=== PATIENT | male | born 1955 | race Caucasian/White ===

== ENCOUNTER 2016-12-10 15:39 | Inpatient (IN) | payer OTHER ==
[2016-12-10] MEDS ORDERED: CATAPRES PO ONE (15:57)
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
[2016-12-10 17:12] LABS: UR AMPHETAMINES QUAL NONE DETECTED (NONE DETECT); UR BARBITUATES QUAL NONE DETECTED (NONE DETECT); UR BENZODIAZEPIN QUAL PRESUMPTIVE POSITIVE (NONE DETECT); UR COCAINE QUAL NONE DETECTED (NONE DETECT); UR MDMA QUAL NONE DETECTED (NONE DETECT); UR METHADONE QUAL PRESUMPTIVE POSITIVE (NONE DETECT); UR METHAMPHETAMINE QUAL NONE DETECTED (NONE DETECT); UR OPIATES QUAL NONE DETECTED (NONE DETECT)
[2016-12-10 17:13] LABS: UR CANNABINOIDS QUAL NONE DETECTED (NONE DETECT); UR OXYCODONE QUAL NONE DETECTED (NONE DETECT); UR PCP QUAL NONE DETECTED (NONE DETECT); UR TCA QUAL NONE DETECTED (NONE DETECT)
[2016-12-10 17:22] LABS: URINE CULTURE PL NEEDED? NO
[2016-12-10 17:22] LABS: MANUAL DIFF NEEDED? NO
[2016-12-10 17:24] LABS: BILIRUBIN URINE NEGATIVE (NEGATIVE); BLOOD URINE NEGATIVE (NEGATIVE); CLARITY CLEAR (CLEAR); COLOR YELLOW; GLUCOSE URINE NEGATIVE (NEGATIVE); LEUKOCYTES URINE NEGATIVE (NEGATIVE); NITRITE URINE NEGATIVE (NEGATIVE); PROTEIN URINE NEGATIVE (NEGATIVE); URINE EPITHELIAL CELLS <10 /HPF (<10); URINE RBC <10 /HPF (<10); URINE SOURCE CLEAN CATCH; URINE WBC <10 /HPF (<10); UROBILINOGEN URINE NORMAL
[2016-12-10 17:39] LABS: BASO% 0.5 % (0.0-0.8); EOS# 0.12 X1000 (0.0-0.7); EOS% 0.8 % (0.0-10.0); HEMATOCRIT 49.2 % (42.0-52.0); HEMOGLOBIN 16.7 g/dL (14.0-18.0); IMM GRAN# 0.04 X1000 (0.0-0.04); IMM GRAN% 0.3 % (0.0-0.5); LYMPH# 5.41 X1000 (1.2-3.4); LYMPH% 34.8 % (20.5-51.1); MCH 29.5 PG (27-31); MCHC 33.9 g/dL (33-37); MCV 86.8 FL (81-99); NEUT% 54.6 % (42.2-75.2); PLT 425 X1000 (130-400); RBC 5.67 XMIL (4.7-6.1)
[2016-12-10 17:57] LABS: AGAP 16; ALBUMIN 4.2 g/dL (3.5-5.0); ALKALINE PHOSPHATASE 109 U/L (32-122); BUN 8 mg/dL (8-22); CALCIUM 9.4 mg/dL (8.8-10.2); CHLORIDE 93 mmol/L (98-107); COSMO 267; GOT 16 U/L (10-34); GPT 15 U/L (10-44); SODIUM 133 mmol/L (136-145); TCO2 24 mmol/L (25-35); TOTAL PROTEIN 8.3 g/dL (6.3-8.3)
[2016-12-10 18:00] LABS: ACETAMINOPHEN < 1.2 ug/mL (10-30)
[2016-12-10] MEDS ORDERED: LR 1,000 ML IV PRN (19:12)
[2016-12-10] MEDS ORDERED: ROCEPHIN 1 GM/NS 50 ML IV ONE (19:16)
[2016-12-10] MEDS ORDERED: DESYREL PO ONE (21:42)
[2016-12-10] MEDS ORDERED: PHENERGAN PO ONE (21:43)
[2016-12-10] MEDS ORDERED: POTASSIUM CHLORIDE 10 MEQ in LR 1,000 ML IV ONE (21:46)
[2016-12-10] MEDS ORDERED: ZOFRAN PO PRN (21:46)
[2016-12-10] MEDS ORDERED: LACTULOSE PO PRN (22:45)
[2016-12-10] MEDS: VALIUM PO SCH (23:15)
[2016-12-11] MEDS: ZOFRAN ODT PO PRN (05:12)
--- NOTE | 2016-12-11 06:40 | Diag Imaging Result Document ---
PROCEDURE NAME: CHEST-2 VIEWS - 12/10/2016 FRONTAL AND LATERAL CHEST, TWO VIEWS: COMPARISON: Compared to 06/09/2016. FINDINGS: There are surgical clips near the right hilum. These are unchanged. The heart is not enlarged. The vessels are not distended. Mild increased interstitial markings in the mid and lower lungs bilaterally. These are more pronounced on the left. The markings on the left are mostly unchanged from prior exam and likely represent fibrosis. The markings on the right could be fibrosis as well or atelectasis. No pleural effusions. No consolidation. Mild compression fracture to the upper lumbar vertebrae. IMPRESSION: Likely fibrosis and atelectasis although there could be a small underlying infiltrate.
[2016-12-11] MEDS ORDERED: SUBUTEX SL SCH (09:00)
[2016-12-11] MEDS: CATAPRES PO SCH ×2 (09:25→20:58)
[2016-12-11] MEDS: VALIUM PO SCH ×2 (09:28→20:58)
[2016-12-11] MEDS: NEURONTIN PO PRN ×2 (14:45→21:00)
[2016-12-11] MEDS: TORADOL IV PRN ×3 (14:45→23:58)
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
[2016-12-11] MEDS: TYLENOL PO PRN (18:36)
[2016-12-11] MEDS: ROCEPHIN 1 GM/NS 50 ML IV SCH (18:36)
[2016-12-11] MEDS ORDERED: SUBOXONE 2 MG/0.5 MG SL SCH (21:00)
[2016-12-12] MEDS: TYLENOL PO PRN (03:29)
[2016-12-12] MEDS: ZOFRAN ODT PO PRN (03:31)
[2016-12-12] MEDS: TORADOL IV PRN ×3 (06:19→21:31)
[2016-12-12] MEDS: VALIUM PO SCH ×2 (08:36→20:24)
[2016-12-12] MEDS: CATAPRES PO SCH ×2 (08:36→20:24)
[2016-12-12] MEDS: ROBAXIN PO SCH ×3 (08:36→17:02)
[2016-12-12] MEDS: SUBUTEX SL SCH ×3 (08:36→17:02)
[2016-12-12] MEDS: NEURONTIN PO SCH ×3 (08:36→20:24)
--- NOTE | 2016-12-12 09:36 | PROGRESS NOTE ---
DATE: 12/12/2016 SUBJECTIVE: The patient notes that he is less suicidal, but still has thoughts of hurting himself. Denies any current chest pain or palpitations. States he still hurts all over. Does not think that the 4 mg Suboxone helped. Uncertain if it made it worse. Denies any fevers or chills. PHYSICAL EXAMINATION: Vital Signs: Temperature 98, pulse 65, respiratory rate 13-22, BP 96/62. Saturating 94% on room air. General: Patient is a well-developed male, who is currently in no respiratory distress. He is awake, alert. Neck: Supple. Cardiovascular: Regular rate. Chest: Relatively clear. Abdomen: Soft. Extremities: Moves all extremities. Neurologic: No changes. ASSESSMENT: 1. Suicidal ideations. Appears to be improving with better control of his opiate withdrawal. 2. Opiate withdrawal, The patient was on incredibly large dose of methadone, approximately 280 mg a day. He had gotten down to 135 mg a day and stopped abruptly a few days ago. 3. Leukocytosis. Will recheck. 4. Hypokalemia. Pending. 5. Polysubstance abuse. 6. Diabetes with noncompliance. PLAN: We will continue patient in ICU this morning due to suicidal ideations. We will continue Rocephin for his leukocytosis. Recheck his labs. Will change his Subutex to 2 mg three times a day. We will continue Toradol. Add Robaxin and follow.
[2016-12-12] MEDS: ROCEPHIN 1 GM/NS 50 ML IV SCH (18:10)
[2016-12-12] MEDS: DESYREL PO PRN (21:30)
[2016-12-13] MEDS: ZOFRAN ODT PO PRN (05:05)
[2016-12-13] MEDS: TORADOL IV PRN ×3 (05:06→22:37)
[2016-12-13 05:50] LABS: HEMATOCRIT 44.9 % (42.0-52.0); HEMOGLOBIN 15.1 g/dL (14.0-18.0); MCH 29.6 PG (27-31); MCHC 33.6 g/dL (33-37); MPV 11.2 FL (7.4-10.4); RBC 5.1 XMIL (4.7-6.1)
[2016-12-13 05:52] LABS: AGAP 10; ALBUMIN 3.4 g/dL (3.5-5.0); ALKALINE PHOSPHATASE 86 U/L (32-122); BUN 8 mg/dL (8-22); CALCIUM 9.1 mg/dL (8.8-10.2); CHLORIDE 94 mmol/L (98-107); COSMO 264; GOT 11 U/L (10-34); GPT 12 U/L (10-44); MAGNESIUM 2.2 mg/dL (1.5-2.7); POTASSIUM 3.1 mmol/L (3.5-5.1); SODIUM 132 mmol/L (136-145); TCO2 28 mmol/L (25-35); TOTAL PROTEIN 6.6 g/dL (6.3-8.3)
[2016-12-13] MEDS ORDERED: KLOR-CON PO ONE (06:46)
[2016-12-13] MEDS ORDERED: LACTULOSE PO PRN (06:52)
[2016-12-13] MEDS ORDERED: NEURONTIN PO PRN (06:53)
[2016-12-13] MEDS: CATAPRES PO SCH ×2 (08:16→20:02)
[2016-12-13] MEDS: SUBUTEX SL SCH ×2 (08:16→15:18)
[2016-12-13] MEDS: NEURONTIN PO SCH ×3 (08:16→20:02)
[2016-12-13] MEDS: ROBAXIN PO SCH ×3 (08:16→17:03)
[2016-12-13] MEDS: VALIUM PO SCH ×2 (08:17→20:02)
--- NOTE | 2016-12-13 09:08 | PROGRESS NOTE ---
DATE: 12/13/2016 SUBJECTIVE: The patient notes he is feeling a little bit better. States that the Subutex does help, but does not last but a couple of hours. Did not sleep well last night after the Subutex wore off. Patient denies any suicidal or homicidal ideations at the present time. OBJECTIVE: Vital Signs: On physical, temperature 97.0, pulse 61, respiratory rate 21, BP 118/68, satting 98% on room air. General: Patient is well developed, well nourished. Currently in no real respiratory distress. He is pleasant. Speech is regular. Memory is intact. HEENT: Normocephalic, atraumatic. BESS. Neck: Supple. CV: Regular rate. Chest: Relatively clear. Abdomen: Soft, nondistended. Extremities: Moves all extremities. Neurologic: No changes. LABS REVIEWED: WBCs 11. Sodium 132, potassium 3.1. Albumin 3.4. ASSESSMENT: 1. Mild protein calorie malnutrition. 2. Hyponatremia. 3. Hypokalemia. 4. Leukocytosis, improving. 5. Polysubstance abuse. 6. Suicidal ideations, resolved. 7. Diabetes with noncompliance. PLAN: Will continue to follow patient in the hospital. However, will move him out of the ICU as he is no longer suicidal and he is not requiring ICU care. Will increase his Subutex to 2 mg a.m. in afternoon and 4 mg at night. We will continue to slowly increase. Discussed with patient that he was on an incredibly large dose of methadone, and this is the cause of his current withdrawal symptoms. Will continue Rocephin as his white count seems to be improving. Will continue to follow. Hopefully home in 1-2 days.
[2016-12-13] MEDS: ROCEPHIN 1 GM/NS 50 ML IV SCH (18:24)
[2016-12-13] MEDS ORDERED: SUBUTEX SL SCH (21:00)
[2016-12-13] MEDS ORDERED: MYCELEX TROCHE PO SCH (21:00)
[2016-12-13] MEDS: DESYREL PO PRN (22:37)
[2016-12-14] MEDS: TORADOL IV PRN ×2 (06:54→20:22)
[2016-12-14] MEDS: ZOFRAN ODT PO PRN (06:54)
[2016-12-14] MEDS: NEURONTIN PO SCH ×3 (09:08→20:23)
[2016-12-14] MEDS: ROBAXIN PO SCH ×3 (09:08→17:25)
[2016-12-14] MEDS: CATAPRES PO SCH ×2 (09:08→20:23)
[2016-12-14] MEDS: VALIUM PO SCH ×2 (09:08→20:22)
[2016-12-14] MEDS: SUBUTEX SL SCH ×2 (09:09→15:28)
[2016-12-14] MEDS ORDERED: SUBUTEX SL ONE (09:30)
--- NOTE | 2016-12-14 11:07 | PROGRESS NOTE ---
DATE: 12/14/2016 SUBJECTIVE: Patient notes that he is feeling a little bit better. He is still having multiple issues with muscle aches and pains. Denies any chest pain, palpitations. Denies any fevers or chills. OBJECTIVE: Vital Signs: Reviewed. Temperature 98 degrees, pulse 69, respiratory 16, BP 105/59. General: Patient well developed, well nourished. Currently in no respiratory distress. He is awake, alert. He appears to be feeling better. HEENT: Normocephalic, atraumatic. Neck: Supple. CV: Regular rate. Chest: Relatively clear. LABS: Reviewed. ASSESSMENT: 1. Hyponatremia stable. 2. Hypokalemia stable. 3. Polysubstance abuse and opiate withdrawal. We will continue stabilization with Subutex. 4. Diabetes with noncompliance. PLAN: Will slowly continue to increase patient's Subutex as he has continued to have withdrawal symptoms. Further orders as needed.
[2016-12-14] MEDS: ROCEPHIN 1 GM/NS 50 ML IV SCH (18:17)
[2016-12-14] MEDS ORDERED: SUBUTEX SL SCH (21:00)
[2016-12-15] MEDS: NEURONTIN PO SCH ×3 (08:41→20:26)
[2016-12-15] MEDS: CATAPRES PO SCH ×2 (08:42→20:26)
[2016-12-15] MEDS: ROBAXIN PO SCH ×3 (08:42→16:43)
[2016-12-15] MEDS: VALIUM PO SCH ×2 (08:42→20:24)
[2016-12-15] MEDS ORDERED: SUBUTEX SL SCH (09:00)
[2016-12-15] MEDS ORDERED: SUBUTEX SL ONE (10:45)
--- NOTE | 2016-12-15 12:05 | PROGRESS NOTE ---
DATE: 12/15/2016 SUBJECTIVE: Patient notes that he is feeling a lot better after increasing Subutex last night to 8 mg. states that he feels as though he needs to stay on Subutex at home. Denies any current chest pain, palpitations. Denies any current suicidal ideation. States that he is still hurting but improved. Notes that the 8 mg lasted much longer. Overnight. PHYSICAL EXAMINATION: Vital Signs: Temperature 97.9 degree, pulse 47, respiratory 20, BP 111/57, saturation 98% on room air. General: The patient is well developed, well nourished. Currently in no real respiratory distress. He is awake, alert. Neck: Supple. CV: Regular rate. Chest: Relatively clear. Abdomen: Soft, nondistended. Extremities: Moves all extremities. Neurologic: No changes. Skin: Warm and dry. No rashes. ASSESSMENT: 1. Nausea, vomiting. 2. Abdominal pain. 3. Hyponatremia, resolved. 4. Hypokalemia, resolved. 5. Suicidal ideation secondary to opiate withdrawal symptoms. 6. Diabetes with poor compliance. 7. Chronic opiate abuse and chronic pain. PLAN: Patient continues to slowly improve. His withdrawal symptoms are continuing to improve. He is being stabilized with Subutex. We will increase to 8 mg Subutex b.i.d. and 2 mg in the afternoon. Discussed with him that he will need to stay on Subutex for about 2 months and then we will certainly need to wean back to 8 mg b.i.d. of Suboxone and continue to follow.
[2016-12-15] MEDS: SUBUTEX SL SCH ×2 (15:09→20:36)
[2016-12-15] MEDS: ROCEPHIN 1 GM/NS 50 ML IV SCH (18:11)
[2016-12-15] MEDS: DESYREL PO PRN (20:25)
[2016-12-16] MEDS: ROBAXIN PO SCH (08:38)
[2016-12-16] MEDS: CATAPRES PO SCH (08:39)
[2016-12-16] MEDS: NEURONTIN PO SCH (08:39)
[2016-12-16] MEDS: VALIUM PO SCH (08:39)
[2016-12-16] MEDS: SUBUTEX SL SCH (08:41)
[2016-12-16 12:25] VITALS: BP 120/68
--- NOTE | 2016-12-17 05:10 | DISCHARGE SUMMARY ---
ADMISSION DATE: 12/11/2016 DISCHARGE DATE: 12/16/2016 DISCHARGE DIAGNOSES: 1. Chronic opiate abuse and stabilization with Subutex. 2. Nausea and vomiting, resolved. 3. Abdominal pain, resolved. 4. Hyponatremia, resolved. 5. Hypokalemia, resolved. 6. Suicidal ideation secondary to opiate withdrawal symptoms, resolved. 7. Diabetes with poor control, stable. 8. Chronic pain. 9. Myalgias. 10. Leukocytosis, resolved. CONSULTATIONS: None. PROCEDURES: None. BRIEF HOSPITAL COURSE: Patient is a 61-year-old male was admitted as noted on the history of present illness. Initially placed in the ICU secondary to suicidal ideations. It was felt as though this was secondary to opiate withdrawal. He had been on extremely large doses of methadone, up to 280 mg a day. The wean down to about 150 mg a day and then stopped completely approximately a week ago. His withdrawal symptoms continued to worsen, continue to be too severe and therefore presented to the emergency department. The patient was very slowly placed on Subutex initially at 2 mg twice a day, with Toradol, Robaxin, and other symptomatic medications. This was slowly increased to 8 in the morning, 2 in the afternoon, and 8 at night. The patient was finally able to get some relief. Therefore, he will be discharged home. DISPOSITION: The patient will be discharged home. He will continue Subutex at home. He will need to follow up outpatient with treatment facility of choice. Discussed with the patient that he needs lifestyle changes, as well as life counseling and drug counseling. We will continue to follow.
== END 2016-12-16 13:18 | disposition home or self-care (01) | DRG 897 ==
LOC: P.ED 15:39 → P.ICU 22:09 → OBSVTOIN 12-11 09:16 → P.MEDSURG 12-13 11:37
PROVIDERS: ATTEND Family Medicine
DX: F11.23 Opioid dependence with withdrawal (principal); R45.851 Suicidal ideations; E87.1 Hypo-osmolality and hyponatremia; E44.1 Mild protein-calorie malnutrition; E11.65 Type 2 diabetes mellitus with hyperglycemia; R19.7 Diarrhea, unspecified; E87.6 Hypokalemia; Z91.19 Patient's noncompliance with other medical treatment and regimen; F13.10 Sedative, hypnotic or anxiolytic abuse, uncomplicated; G89.29 Other chronic pain; Z79.899 Other long term (current) drug therapy
CPT/HCPCS: 71020; 80053; 80305; 81001; 83735; 84436; 84443; 85025; 85027; 96365; 96366; G0480; J0696; J1885; J3480; J7120; 80320; 80324; 80329

== ENCOUNTER 2017-04-18 07:55 | Observation (INO) ==
[2017-04-18 08:40] LABS: MANUAL DIFF NEEDED? NO
[2017-04-18 08:41] LABS: BE 3.7 mmoll (-3.0-3.0); BLOOD TYPE ARTERIAL; DRAW SITE R RADIAL; METHB 1.1 % (0.0-1.5); O2(CT) 22.6 mL/dL (15.0-23.0); PCO2(98.6) 39 mmHg (35-45); PO2(98.6) 74 mmHg (60-100); SAMPLE BLOOD; SAO2 97.6 % (95.0-100.0); THB 17.6 g/dL (11.5-17.4); pH(98.6) 7.46 (7.35-7.45)
[2017-04-18 08:43] LABS: BASO% 0.6 % (0.0-0.8); EOS# 0.09 X1000 (0.0-0.7); EOS% 0.8 % (0.0-10.0); HEMATOCRIT 48.5 % (42.0-52.0); HEMOGLOBIN 17.5 g/dL (14.0-18.0); IMM GRAN# 0.03 X1000 (0.0-0.04); IMM GRAN% 0.3 % (0.0-0.5); LYMPH# 2.87 X1000 (1.2-3.4); LYMPH% 24.9 % (20.5-51.1); MCH 30.4 PG (27-31); MCHC 36.1 g/dL (33-37); MCV 84.3 FL (81-99); MONO# 1.86 X1000 (0.11-0.59); MONO% 16.1 % (1.7-9.3); MPV 11.7 FL (7.4-10.4); NEUT% 57.3 % (42.2-75.2); PLT 323 X1000 (130-400); RBC 5.75 XMIL (4.7-6.1)
[2017-04-18 08:47] LABS: MODALITY ROOM AIR
[2017-04-18 08:49] LABS: ALLEN TEST YES
[2017-04-18 09:01] LABS: INR 1.02 (0.86-1.15); PROTIME 13.7 Seconds (12.1-15.5)
--- NOTE | 2017-04-18 09:06 | Diag Imaging Result Doc PS360 ---
EXAM: CHEST-2 VIEWS HISTORY: SOB TECHNIQUE: PA and Lateral chest x-ray COMPARISON: 04/16/2017 FINDINGS: Lung volumes are reduced but stable. Surgical clips project posterior right chest. Scarring within the left midlung zone when blunted left costophrenic angle remains stable. No acute infiltrates or effusions are identified. No pneumothorax is noted. There is stable marked kyphosis with compression deformities at the thoracolumbar junction. IMPRESSION: Stable fibrosis and reduced lung volumes. No acute abnormalities are appreciated. Electronically signed by Viola Camarena 04/18/2017 9:03 AM
[2017-04-18 09:19] LABS: AGAP 15; ALBUMIN 4.3 g/dL (3.5-5.0); ALKALINE PHOSPHATASE 100 U/L (32-122); BUN 16 mg/dL (8-22); CALCIUM 9.3 mg/dL (8.8-10.2); CHLORIDE 80 mmol/L (98-107); CK PROFILE 144 U/L (24-204); COSMO 244; GOT 18 U/L (10-34); GPT 13 U/L (10-44); MAGNESIUM 2.2 mg/dL (1.5-2.7); POTASSIUM 3.7 mmol/L (3.5-5.1); TCO2 25 mmol/L (25-35); TOTAL PROTEIN 8.2 g/dL (6.3-8.3)
[2017-04-18 09:20] LABS: SODIUM 120 mmol/L (136-145)
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
[2017-04-18] MEDS ORDERED: ZOFRAN IV ONE (10:48)
[2017-04-18] MEDS ORDERED: ZOFRAN ONE (10:48)
[2017-04-18 10:49] LABS: URINE CULTURE PL NEEDED? NO
[2017-04-18 10:56] LABS: BILIRUBIN URINE NEGATIVE (NEGATIVE); BLOOD URINE NEGATIVE (NEGATIVE); CLARITY CLEAR (CLEAR); COLOR YELLOW; GLUCOSE URINE NEGATIVE (NEGATIVE); LEUKOCYTES URINE NEGATIVE (NEGATIVE); NITRITE URINE NEGATIVE (NEGATIVE); PROTEIN URINE NEGATIVE (NEGATIVE); SP GRAVITY URINE 1.015; UROBILINOGEN URINE NORMAL
[2017-04-18 10:58] LABS: URINE EPITHELIAL CELLS <10 /HPF (<10); URINE SOURCE CLEAN CATCH; URINE WBC <10 /HPF (<10)
[2017-04-18] MEDS ORDERED: TYLENOL PO PRN (13:00)
[2017-04-18] MEDS ORDERED: ZOFRAN IV PRN (13:00)
[2017-04-18] MEDS ORDERED: AMBIEN PO PRN (14:38)
[2017-04-18] MEDS: NS 1,000 ML IV SCH (15:48)
[2017-04-18 16:16] LABS: UR AMPHETAMINES QUAL NONE DETECTED (NONE DETECT); UR BARBITUATES QUAL NONE DETECTED (NONE DETECT); UR BENZODIAZEPIN QUAL PRESUMPTIVE POSITIVE (NONE DETECT); UR CANNABINOIDS QUAL NONE DETECTED (NONE DETECT); UR COCAINE QUAL NONE DETECTED (NONE DETECT); UR MDMA QUAL NONE DETECTED (NONE DETECT); UR METHADONE QUAL NONE DETECTED (NONE DETECT); UR METHAMPHETAMINE QUAL NONE DETECTED (NONE DETECT); UR OPIATES QUAL NONE DETECTED (NONE DETECT); UR OXYCODONE QUAL NONE DETECTED (NONE DETECT); UR PCP QUAL NONE DETECTED (NONE DETECT); UR TCA QUAL PRESUMPTIVE POSITIVE (NONE DETECT)
[2017-04-18 16:25] LABS: AGAP 12; BUN 17 mg/dL (8-22); CALCIUM 9.4 mg/dL (8.8-10.2); CHLORIDE 81 mmol/L (98-107); COSMO 249; POTASSIUM 4.1 mmol/L (3.5-5.1); SODIUM 121 mmol/L (136-145); TCO2 28 mmol/L (25-35)
--- NOTE | 2017-04-18 16:52 | EKG Report ---
Test Performed on : 04/18/2017 08:15:52 AM Test Reason : SOB Blood Pressure : / mmHG Vent. Rate : 093 BPM Atrial Rate : 093 BPM P-R Int : 144 ms QRS Dur : 082 ms QT Int : 354 ms P-R-T Axes : 057 042 021 degrees QTc Int : 440 ms Normal sinus rhythm. Normal ECG When compared with ECG of 16-APR-2017 10:59, No significant change was found Unconfirmed Result
[2017-04-18] MEDS: HUMALOG DOSE (PARKWAY) SUBQ SCH ×2 (17:16→20:19)
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
[2017-04-18] MEDS: SUBOXONE 8 MG/2 MG SL SCH (20:19)
[2017-04-18] MEDS: NORFLEX PO SCH (20:19)
[2017-04-18] MEDS: VALIUM PO SCH (20:20)
[2017-04-18 22:10] LABS: AGAP 9; BUN 19 mg/dL (8-22); CALCIUM 8.6 mg/dL (8.8-10.2); CHLORIDE 83 mmol/L (98-107); COSMO 247; POTASSIUM 3.9 mmol/L (3.5-5.1); SODIUM 122 mmol/L (136-145); TCO2 30 mmol/L (25-35)
[2017-04-19] MEDS: NS 1,000 ML IV SCH (00:08)
[2017-04-19] MEDS: HUMALOG DOSE (PARKWAY) SUBQ SCH (06:17)
[2017-04-19 06:22] LABS: HEMATOCRIT 43.6 % (42.0-52.0); MCH 29.5 PG (27-31); MCHC 34.4 g/dL (33-37); MCV 85.7 FL (81-99); MPV 11.5 FL (7.4-10.4); RBC 5.09 XMIL (4.7-6.1)
[2017-04-19] MEDS ORDERED: NEXIUM PO SCH (07:00)
[2017-04-19] MEDS: NORFLEX PO SCH (09:05)
[2017-04-19] MEDS: VALIUM PO SCH (09:05)
[2017-04-19] MEDS: SUBOXONE 8 MG/2 MG SL SCH (09:06)
[2017-04-19 10:53] LABS: AGAP 12; ALBUMIN 4.3 g/dL (3.5-5.0); ALKALINE PHOSPHATASE 89 U/L (32-122); BUN 20 mg/dL (8-22); CALCIUM 9.7 mg/dL (8.8-10.2); CHLORIDE 90 mmol/L (98-107); COSMO 261; GOT 16 U/L (10-34); GPT 10 U/L (10-44); POTASSIUM 4.5 mmol/L (3.5-5.1); SODIUM 128 mmol/L (136-145); TCO2 27 mmol/L (25-35)
[2017-04-19 12:07] VITALS: BP 121/62
--- NOTE | 2017-04-20 05:00 | DISCHARGE SUMMARY ---
ADMISSION DATE: 04/18/2017 DISCHARGE DATE: 04/19/2017 DIAGNOSES: 1. Hyponatremia. 2. Back pain, chronic. 3. Diabetes mellitus. 4. Hypertension. DIAGNOSTICS: On 04/18/2017, chest x-ray revealed stable fibrosis and reduced lung volumes. No acute abnormalities appreciated. HOSPITAL COURSE: Mr. Polo presented to the emergency room complaining of back pain. He presented twice in 24 hours. On the 2nd visit, he was found to have a sodium of 120 with a potassium of 3.7. He was given IV fluids. Labs were trended and sodium did rise to 128 today. He would he denied any weakness, any dizziness, chest pain, palpitations. He wished to go home. PHYSICAL EXAMINATION: Cardiovascular: Regular rate and rhythm. S1 and S2 are appreciated. Pulmonary: Breath sounds are clear with no increased work of breathing noted. Gastrointestinal: Abdomen is soft, nontender, nondistended with bowel sounds in all 4 quadrants. Neurologic: He is alert and oriented x3. Cranial nerves 2-12 grossly intact. DISCHARGE MEDICATIONS: 1. Ambien 1 tablet at bedtime p.r.n. 2. Norflex 100 b.i.d. 3. Lisinopril 20 mg daily. 4. Nexium 40 daily. 5. Valium 10 b.i.d. 6. Suboxone 8/2 b.i.d. DISCHARGE VITAL SIGNS: Blood pressure is 121/62, with a heart rate of 65, respirations are 18, temperature is 98.5 degrees, with room air saturations of 96%. DISCHARGE ACTIVITY: As tolerated. DISCHARGE DIET: Diabetic. FOLLOWUP: He needs to follow with Dr. Boogie, his primary care physician, 1 day next week to have a BMP redrawn and check his sodium levels. He is being discharged home in stable condition with family members. TIME SPENT: This is a greater than 30 minute discharge. Dictated by MARILYN Ha for Maynor Jasso MD cc: MARILYN Ha MD
== END 2017-04-19 13:35 | disposition home or self-care (01) ==
LOC: P.ED 07:55 → P.MEDSURG 07:55
PROVIDERS: ATTEND Family Medicine

== ENCOUNTER 2017-05-01 13:01 | Inpatient (IN) ==
[2017-05-01] MEDS ORDERED: NS 500 ML IV ONE (13:28)
[2017-05-01] MEDS ORDERED: ZOSYN 3.375 GM/NS 3.375 GM/50 ML IVPB IV ONE (13:29)
[2017-05-01 13:49] LABS: MANUAL DIFF NEEDED? NO
[2017-05-01 13:52] LABS: BASO% 0.6 % (0.0-0.8); EOS# 0.22 X1000 (0.0-0.7); EOS% 2.2 % (0.0-10.0); HEMATOCRIT 44.6 % (42.0-52.0); IMM GRAN# 0.02 X1000 (0.0-0.04); IMM GRAN% 0.2 % (0.0-0.5); LYMPH# 3.71 X1000 (1.2-3.4); MCH 30.4 PG (27-31); MCHC 33.6 g/dL (33-37); MCV 90.3 FL (81-99); MONO# 0.81 X1000 (0.11-0.59); MONO% 8.1 % (1.7-9.3); MPV 10.5 FL (7.4-10.4); NEUT% 51.9 % (42.2-75.2); PLT 416 X1000 (130-400); RBC 4.94 XMIL (4.7-6.1)
[2017-05-01 14:35] LABS: AGAP 8; ALBUMIN 3.5 g/dL (3.5-5.0); ALKALINE PHOSPHATASE 92 U/L (32-122); BUN 6 mg/dL (8-22); CALCIUM 8.7 mg/dL (8.8-10.2); CHLORIDE 101 mmol/L (98-107); COSMO 272; GOT 13 U/L (10-34); GPT 14 U/L (10-44); POTASSIUM 4.1 mmol/L (3.5-5.1); SODIUM 137 mmol/L (136-145); TCO2 28 mmol/L (25-35); TOTAL PROTEIN 6.9 g/dL (6.3-8.3)
[2017-05-01] MEDS ORDERED: TYLENOL PO PRN (15:18)
[2017-05-01] MEDS ORDERED: ZOFRAN IV PRN (15:18)
[2017-05-01] MEDS ORDERED: DILAUDID IM PRN (15:18)
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
[2017-05-01] MEDS ORDERED: AMBIEN PO PRN (17:36)
[2017-05-01] MEDS ORDERED: VALIUM PO SCH (21:00)
[2017-05-01] MEDS: VALIUM PO SCH (21:11)
[2017-05-01] MEDS: NORFLEX PO SCH (21:11)
[2017-05-01] MEDS: SUBOXONE 8 MG/2 MG SL SCH (21:11)
[2017-05-01] MEDS: NEURONTIN PO SCH (21:11)
[2017-05-01] MEDS: ZOSYN 3.375 GM/NS 3.375 GM/50 ML IVPB IV SCH (21:12)
[2017-05-02] MEDS: AMBIEN PO PRN ×2 (01:08→23:18)
[2017-05-02] MEDS: ZOSYN 3.375 GM/NS 3.375 GM/50 ML IVPB IV SCH ×4 (03:48→20:15)
[2017-05-02] MEDS: NEURONTIN PO SCH ×3 (05:53→21:02)
[2017-05-02] MEDS: NORFLEX PO SCH ×2 (09:25→20:15)
[2017-05-02] MEDS: SUBOXONE 8 MG/2 MG SL SCH ×2 (09:25→20:15)
[2017-05-02] MEDS: VALIUM PO SCH ×2 (09:25→20:15)
[2017-05-02] MEDS: PRINIVIL PO SCH (09:25)
[2017-05-02] MEDS: NICODERM PATCH TD SCH (12:34)
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
[2017-05-03] MEDS: ZOSYN 3.375 GM/NS 3.375 GM/50 ML IVPB IV SCH ×4 (02:17→21:07)
[2017-05-03] MEDS: NEURONTIN PO SCH ×3 (05:07→21:08)
[2017-05-03] MEDS: NICODERM PATCH TD SCH (09:14)
[2017-05-03] MEDS: NORFLEX PO SCH ×2 (09:14→21:07)
[2017-05-03] MEDS: VALIUM PO SCH ×2 (09:14→21:08)
[2017-05-03] MEDS: LOVENOX SUBQ SCH (09:14)
[2017-05-03] MEDS: PRINIVIL PO SCH (09:14)
[2017-05-03] MEDS: SUBOXONE 8 MG/2 MG SL SCH ×2 (09:14→21:06)
--- NOTE | 2017-05-03 14:47 | PROGRESS NOTE ---
DATE: 05/03/2017 SUBJECTIVE: The patient states that he is having less pain in his right lower extremity. He denies any fevers or chills, chest pain, nausea, or vomiting. OBJECTIVE: Vital Signs: Blood pressure is 95/48 with a heart rate of 66, respirations are 18, temperature is 98.4 degrees with room air saturations 96%-99%. Cardiovascular: Regular rate and rhythm S1, S2 appreciated. Pulmonary: Breath sounds are clear. No increased work of breathing noted. Gastrointestinal: Abdomen is soft, nontender, nondistended. Bowel sounds in all 4 quadrants. Back: No CVAT. No spine tenderness. Extremities: No clubbing, cyanosis, or edema to upper extremities. Right lower extremity: He has some nonpitting edema with redness and warmth although it is less than yesterday. Of note, he has left AKA LABORATORY DATA: He has no labs today. PROBLEM LIST: 1. Cellulitis, right lower extremity. 2. Diabetes mellitus. 3. Hypertension. 4. History of polysubstance abuse. 5. Deep venous thrombosis prophylaxis, Lovenox. 6. Gastrointestinal prophylaxis, Prilosec. PLAN: We will continue with current regimen. Continue his IV antibiotics transitioning over to oral antibiotics hopefully in the next day or 2. Further treatments pending hospital course. Dictated by MARILYN Ha for Maynor Jasso MD cc: MARILYN Ha MD
[2017-05-03] MEDS: AMBIEN PO PRN (21:08)
[2017-05-04] MEDS: ZOSYN 3.375 GM/NS 3.375 GM/50 ML IVPB IV SCH ×5 (01:52→20:32)
[2017-05-04] MEDS: NEURONTIN PO SCH ×3 (05:14→21:06)
[2017-05-04] MEDS: PRINIVIL PO SCH (09:00)
[2017-05-04] MEDS: VALIUM PO SCH ×2 (09:00→20:32)
[2017-05-04] MEDS: NORFLEX PO SCH ×2 (09:00→20:32)
[2017-05-04] MEDS: NICODERM PATCH TD SCH (09:01)
[2017-05-04] MEDS: SUBOXONE 8 MG/2 MG SL SCH ×2 (09:01→20:32)
[2017-05-04] MEDS: LOVENOX SUBQ SCH (09:02)
--- NOTE | 2017-05-04 13:33 | PROGRESS NOTE ---
DATE: 05/04/2017 SUBJECTIVE: Patient without any new complaints. States that his right lower extremity is starting to feel better. Starting to hurt less. Having less redness, less erythema, and less swelling. OBJECTIVE: Vital signs: Temperature 98, pulse 84, respiratory rate 18, BP 100/59, saturating 100% on room air. General: Patient is well developed, well nourished. Currently in no respiratory distress. He is sleeping quietly in the bed, easily awakened. He awakes to be alert and oriented. HEENT: Normocephalic, atraumatic. Neck: Supple. CV: Regular rate. Chest: Clear. Abdomen: Soft. Extremities: Moves all extremities. Skin: Noted to have less erythema and less edema of the right lower extremity, both of which have improved. He is noted to have a left [id number] amputation. ASSESSMENT: 1. Chronic history of substance abuse, currently on Suboxone. 2. Diabetes. 3. Hypertension. PLAN: We will continue patient on his current medications. Recheck his labs in the a.m. We will continue Zosyn for today as he is definitely improving. Hopefully home in the next 1-2 days. cc: Maynor Jasso MD
[2017-05-05] MEDS: AMBIEN PO PRN ×2 (00:22→21:10)
[2017-05-05] MEDS: ZOSYN 3.375 GM/NS 3.375 GM/50 ML IVPB IV SCH ×4 (02:07→21:11)
[2017-05-05] MEDS: NEURONTIN PO SCH ×3 (05:05→21:10)
[2017-05-05 05:43] LABS: HEMATOCRIT 41.4 % (42.0-52.0); HEMOGLOBIN 13.4 g/dL (14.0-18.0); MCH 30.2 PG (27-31); MCHC 32.4 g/dL (33-37); MCV 93.5 FL (81-99); MPV 10.2 FL (7.4-10.4); RBC 4.43 XMIL (4.7-6.1)
[2017-05-05 06:03] LABS: HEMOGLOBIN A1C 6.2 % (4.8-6.0)
[2017-05-05 06:09] LABS: AGAP 6; ALBUMIN 3.1 g/dL (3.5-5.0); ALKALINE PHOSPHATASE 69 U/L (32-122); BUN 6 mg/dL (8-22); CALCIUM 8.8 mg/dL (8.8-10.2); CHLORIDE 99 mmol/L (98-107); COSMO 275; GOT 9 U/L (10-34); GPT 11 U/L (10-44); POTASSIUM 4.1 mmol/L (3.5-5.1); SODIUM 137 mmol/L (136-145); TCO2 32 mmol/L (25-35); TOTAL BILIRUBIN < 0.15 mg/dL (0.20-1.00); TOTAL PROTEIN 6.3 g/dL (6.3-8.3)
--- NOTE | 2017-05-05 08:26 | PROGRESS NOTE ---
DATE: 05/05/2017 SUBJECTIVE: Patient notes he is still having pain and redness in his right lower extremity. Notes that it is better but is not completely gone. Is concerned if he goes home that it will come right back as it has in the past. OBJECTIVE: Vital Signs: Reviewed. Temperature 98 degrees, pulse 70, respiratory rate 16, BP 103/69, saturating 95% on room air. General: Patient is awake, alert, currently in no respiratory distress. He is sitting in bed, eating breakfast. HEENT: Normocephalic. Neck: Supple. CV: Regular rate. Chest: Relatively clear. Abdomen: Soft. Extremities: Moves all extremities. Skin: He is noted to have less erythema and edema of the right lower extremity but it is still present. Still slightly warm to the touch compared to left lower extremity. ASSESSMENT: 1. Cellulitis. Currently he is on Zosyn. We will add doxycycline. 2. Diabetes type 2. Currently well controlled. 3. Chronic substance abuse. He is on Suboxone and doing well. 4. Chronic anxiety. He is on Valium. 5. Hypertension. 6. Chronic neuropathy. 7. Chronic tobacco abuse. PLAN: We will add doxycycline. Continue his other home medications. Check his labs in the a.m. Hopefully home in the next 1-2 days. cc: Maynor Jasso MD
[2017-05-05] MEDS: DOXYCYCLINE PO SCH ×2 (08:27→21:10)
[2017-05-05] MEDS: VALIUM PO SCH ×2 (08:28→21:10)
[2017-05-05] MEDS: SUBOXONE 8 MG/2 MG SL SCH ×2 (08:28→21:10)
[2017-05-05] MEDS: LOVENOX SUBQ SCH (08:28)
[2017-05-05] MEDS: PRINIVIL PO SCH (08:31)
[2017-05-05] MEDS: NICODERM PATCH TD SCH (08:37)
[2017-05-05] MEDS: NORFLEX PO SCH ×2 (09:27→21:11)
[2017-05-05] MEDS ORDERED: ATIVAN IV PRN (18:54)
[2017-05-06] MEDS: ZOSYN 3.375 GM/NS 3.375 GM/50 ML IVPB IV SCH ×2 (03:20→08:22)
[2017-05-06] MEDS: NEURONTIN PO SCH (05:46)
[2017-05-06 05:59] LABS: HEMATOCRIT 42.4 % (42.0-52.0); HEMOGLOBIN 13.7 g/dL (14.0-18.0); MCHC 32.3 g/dL (33-37); MPV 10.4 FL (7.4-10.4); RBC 4.56 XMIL (4.7-6.1)
[2017-05-06 06:30] LABS: AGAP 6; ALBUMIN 3.4 g/dL (3.5-5.0); ALKALINE PHOSPHATASE 72 U/L (32-122); BUN 7 mg/dL (8-22); CALCIUM 9.5 mg/dL (8.8-10.2); CHLORIDE 97 mmol/L (98-107); COSMO 274; GOT 12 U/L (10-34); GPT 11 U/L (10-44); POTASSIUM 3.9 mmol/L (3.5-5.1); SODIUM 137 mmol/L (136-145); TCO2 34 mmol/L (25-35); TOTAL BILIRUBIN < 0.15 mg/dL (0.20-1.00); TOTAL PROTEIN 6.6 g/dL (6.3-8.3)
[2017-05-06 07:39] VITALS: BP 111/73
[2017-05-06] MEDS: PRINIVIL PO SCH (08:25)
[2017-05-06] MEDS: DOXYCYCLINE PO SCH (08:26)
[2017-05-06] MEDS: NICODERM PATCH TD SCH (08:26)
[2017-05-06] MEDS: LOVENOX SUBQ SCH (08:26)
[2017-05-06] MEDS: SUBOXONE 8 MG/2 MG SL SCH (08:26)
[2017-05-06] MEDS: NORFLEX PO SCH (08:26)
[2017-05-06] MEDS: VALIUM PO SCH (08:27)
--- NOTE | 2017-05-07 11:58 | DISCHARGE SUMMARY ---
ADMISSION DATE: 05/02/2017 DISCHARGE DATE: 05/06/2017 HOSPITAL COURSE: This is a 61-year-old, white male who was admitted for cellulitis of the right lower extremity. Initial white count was 10. He was placed on Zosyn. He also had diabetes, hypertension, chronic polysubstance abuse, on Suboxone. He slowly clinically improved. By the , he had overall improved. Had significant anxiety which required additional medications including Ativan. He was also placed on doxycycline. Clinically, he stabilized, had no white count. Plan will be, I think we will just discharge him on doxycycline since clinically he improved so doxycycline 1 p.o. b.i.d. for another 7 days. Additionally, he is on Suboxone, diazepam 10 b.i.d. p.r.n. anxiety, Cymbalta 30 daily, gabapentin 800 t.i.d., lisinopril 20 daily, Ambien 10 at bedtime. On the day of discharge, he was afebrile. White count was stable. His right lower extremity showed decreased swelling. There was a little bit of erythema but overall it improved and he was felt stable for discharge. DISCHARGE MEDICATIONS: Suboxone which was 8 mg twice a day, Valium 10 b.i.d., doxycycline 100 b.i.d., Cymbalta 30 daily, gabapentin 800 t.i.d., lisinopril 20 daily, Ambien p.r.n. DISCHARGE CONDITION: Stable. DISCHARGE INSTRUCTIONS: We initiated the Cymbalta for anxiety and depression issues, depression and chronic pain issues. He will need those medicines as needed. Follow up with Dr. Boogie for maintenance on those medications. A 32 minute discharge. cc: MD Iker Kaur MD Dr. Ed Robbins
== END 2017-05-06 14:00 | disposition home health service (06) ==
LOC: P.MEDSURG 13:01 → P.ED 13:01 → SUATTDRO 05-02 08:55
PROVIDERS: ATTEND Internal Medicine

== ENCOUNTER 2019-06-12 04:05 | Inpatient (IN) ==
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
[2019-06-12 05:14] LABS: BASO# 0.04 X1000 (0.0-0.2); BASO% 0.2 % (0.0-0.8); EOS# 0.17 X1000 (0.0-0.7); HEMATOCRIT 42.2 % (42.0-52.0); HEMOGLOBIN 14.4 g/dL (14.0-18.0); IMM GRAN# 0.04 X1000 (0.0-0.04); IMM GRAN% 0.2 % (0.0-0.5); LYMPH# 3.03 X1000 (1.2-3.4); LYMPH% 17.7 % (20.5-51.1); MCH 31.6 PG (27-31); MCHC 34.1 g/dL (33-37); MCV 92.7 FL (81-99); MONO# 1.45 X1000 (0.11-0.59); MONO% 8.4 % (1.7-9.3); MPV 10.8 FL (7.4-10.4); NEUT# 12.43 X1000 (1.4-6.5); NEUT% 72.5 % (42.2-75.2); PLT 419 X1000 (130-400); RBC 4.55 XMIL (4.7-6.1); WBC 17.16 X1000 (4.8-10.8)
[2019-06-12 05:23] LABS: AGAP 13; ALKALINE PHOSPHATASE 97 U/L (32-122); BUN 4 mg/dL (8-22); CALCIUM 8.7 mg/dL (8.8-10.2); CHLORIDE 98 mmol/L (98-107); COSMO 271; CREATININE 0.5 mg/dL (0.7-1.2); ESTIMATED GFR > 60; GLUCOSE 140 mg/dL (70-104); GOT 13 U/L (10-34); GPT 20 U/L (10-44); LIPASE 15 U/L (13-60); POTASSIUM 3.8 mmol/L (3.5-5.1); SODIUM 136 mmol/L (136-145); TCO2 26 mmol/L (25-35); TOTAL PROTEIN 6.5 g/dL (6.3-8.3)
[2019-06-12 05:41] LABS: UR AMPHETAMINES QUAL NONE DETECTED (NONE DETECT); UR BARBITUATES QUAL NONE DETECTED (NONE DETECT); UR BENZODIAZEPIN QUAL PRESUMPTIVE POSITIVE (NONE DETECT); UR CANNABINOIDS QUAL NONE DETECTED (NONE DETECT); UR COCAINE QUAL NONE DETECTED (NONE DETECT); UR METHADONE QUAL NONE DETECTED (NONE DETECT); UR METHAMPHETAMINE QUAL NONE DETECTED (NONE DETECT); UR OPIATES QUAL NONE DETECTED (NONE DETECT); UR OXYCODONE QUAL NONE DETECTED (NONE DETECT); UR PCP QUAL NONE DETECTED (NONE DETECT); UR PROPOXYPHENE QUAL NONE DETECTED (NONE DETECT); UR TCA QUAL PRESUMPTIVE POSITIVE (NONE DETECT)
--- NOTE | 2019-06-12 05:56 | EKG Report ---
Test Performed on : 06/12/2019 04:44:33 AM Test Reason : pain Blood Pressure : / mmHG Vent. Rate : 092 BPM Atrial Rate : 092 BPM P-R Int : 166 ms QRS Dur : 078 ms QT Int : 370 ms P-R-T Axes : 065 063 052 degrees QTc Int : 457 ms Normal sinus rhythm. Possible Left atrial enlargement Borderline ECG When compared with ECG of 16-OCT-2018 04:47, No significant change was found Unconfirmed Result
[2019-06-12 05:59] LABS: BILIRUBIN URINE NEGATIVE (NEGATIVE); BLOOD URINE NEGATIVE (NEGATIVE); CLARITY CLEAR (CLEAR); COLOR YELLOW; GLUCOSE URINE NEGATIVE (NEGATIVE); KETONE URINE NEGATIVE (NEGATIVE); LEUKOCYTES URINE NEGATIVE (NEGATIVE); NITRITE URINE NEGATIVE (NEGATIVE); PROTEIN URINE NEGATIVE (NEGATIVE); UROBILINOGEN URINE NORMAL
[2019-06-12] MEDS ORDERED: TORADOL IV ONE (06:00)
[2019-06-12] MEDS ORDERED: ZOFRAN IV ONE (06:01)
[2019-06-12 07:00] LABS: URINE EPITHELIAL CELLS <10 /HPF (<10); URINE SOURCE CLEAN CATCH
--- NOTE | 2019-06-12 07:33 | Diag Imaging Result Doc PS360 ---
CT ABD/PELVIS W/IV CONT ONLY - 06/12/2019 INDICATION: abdominal pain COMPARISON: 10/16/2018 FINDINGS: Stable linear scarring in the lung bases. No infiltrates. Heart size is normal with no pericardial effusion. There are cholecystectomy clips. There has been splenectomy. These are stable from prior. Otherwise all abdominal organs are normal. There are several abnormally fluid dilated loops of small bowel proximally, and several severely collapsed loops distally in the right lower quadrant. This is concerning for a mechanical small bowel obstruction. The transition point may be in the left upper quadrant, see images 75-82. No free air or free fluid. There is moderate stool and gas throughout the colon proximally. The distal colon is collapsed. Urinary bladder, prostate, and rectum are normal. There are several mild compression fractures, at T11, L1, and L3. These are chronic and stable from prior. IMPRESSION: Partial mechanical small bowel obstruction. Transition point is in the left upper quadrant. This exam was performed using automated exposure control, adjustment of mA or kV according to patient size, and/or use of iterative reconstruction technique Electronically signed by Howie Hdz 06/12/2019 7:31 AM
[2019-06-12] MEDS ORDERED: REGLAN IV ONE (07:40)
[2019-06-12] MEDS ORDERED: ZOFRAN IV PRN (09:25)
[2019-06-12] MEDS ORDERED: MORPHINE IV ONE (09:45)
[2019-06-12] MEDS ORDERED: M.V.I.-12 10 ML, FOLIC ACID 1 MG, MAGNESIUM SULFATE 1 GM, THIAMINE 100 MG in NS 1,000 ML IV ONE (10:00)
[2019-06-12] MEDS: NS 1,000 ML IV SCH (11:21)
[2019-06-12] MEDS: DULCOLAX PR SCH ×3 (11:21→22:15)
[2019-06-12] MEDS: PROTONIX IV SCH ×2 (11:22→22:14)
[2019-06-12] MEDS: HUMULIN R SUBQ SCH ×2 (11:23→15:33)
[2019-06-12] MEDS ORDERED: APRESOLINE IV PRN (12:10)
--- NOTE | 2019-06-12 12:45 | Diag Imaging Result Doc PS360 ---
CHEST-PORTABLE - 06/12/2019 INDICATION: NG tube placement COMPARISON: 12/05/2017 FINDINGS: There is a nasogastric tube in good position in the stomach. IMPRESSION: Nasogastric tube in good position in the stomach. Electronically signed by Howie Hdz 06/12/2019 12:43 PM
--- NOTE | 2019-06-12 13:02 | HISTORY AND PHYSICAL ---
ADDENDUM: I saw the patient and agree with the assessment and plan of nurse practitioner, Marilynn Coelho. This is a 63-year-old gentleman, who has been admitted to the emergency room with abdominal pain, and has been diagnosed as having partial small-bowel obstruction. We are going to keep him here at [facility] med/surg and give him IV fluids, along with putting an NG tube with suction and give him conservative treatment. We will also obtain surgical consultation to assist us in taking care of him, and just in case if he needs any surgical intervention, they will be aware of it. Further recommendations will be given as per hospital course. cc: Jonna Marrero MD
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
[2019-06-12] MEDS ORDERED: PNEUMOVAX 23 IM ONE (14:00)
[2019-06-12] MEDS: TORADOL IV SCH ×2 (14:09→20:48)
[2019-06-12] MEDS: REGLAN IV SCH ×2 (14:09→20:47)
--- NOTE | 2019-06-12 14:44 | GENERAL SURGERY CONSULTATION ---
DATE: 06/12/2019 CHIEF COMPLAINT: Nausea vomiting with abdominal pain HISTORY OF PRESENT ILLNESS: This is a 63-year-old gentleman with COPD who has a surgical history related to trauma requiring splenectomy approximately 30 years ago. He also had an exploratory laparoscopy for bowel obstruction 5 to 7 years ago at [facility]. He presented with colicky abdominal discomfort, nausea, vomiting, and decrease in frequency of bowel movements, although he does continue to have bowel function, and was admitted after a CT scan suggests bowel obstruction with no evidence of complication otherwise. MEDICAL HISTORY: COPD. SURGICAL HISTORY: He has had an open splenectomy, left above-knee amputation, and exploratory laparotomy. SOCIAL HISTORY: He smokes daily, half a pack and apparently has a history of multidrug abuse. Does not work. Lives with his dog. FAMILY HISTORY: Reviewed and noncontributory. REVIEW OF SYSTEMS: Ten point review of systems performed and negative other than HPI. PHYSICAL EXAMINATION: Vital signs: He is afebrile, pulse 85, blood pressure 150/85, oxygen saturation 96%. General: He is alert. HEENT: NG tube is in place. There is no scleral icterus. Neck: No cervical mass. Cardiovascular: Normal rate. Pulmonary: No increased work of breathing. He is on room air. Abdomen: Soft, nontender, nondistended with a midline incision. No obvious hernia. Integument: Warm and dry. Psychiatric: Appropriate affect. Neurologic: No gross deficit. Musculoskeletal: He has a left above-knee amputation. Peripheral vascular: No lower extremity edema otherwise. LABORATORY DATA: White count 17, hematocrit 42, platelets 419,000. Creatinine 0.5. LFTs are normal. Troponins normal. Urinalysis clear. UDS positive for tricyclics and benzodiazepines. I reviewed his CT scan of his abdomen and pelvis. ASSESSMENT AND PLAN: A 63-year-old gentleman with apparent bowel obstruction. His exam is benign. I recommended NG-tube decompression, IV hydration and serial observation over the next couple of days. We will keep him n.p.o. I have talked to the team about this. Discussed the plan with the patient. If he fails to improve, he may require surgical exploration as he has in the past but hopefully he will improve currently. cc: Ruddy Gabriel MD [facility]
[2019-06-12] MEDS: ATIVAN IV PRN (22:14)
[2019-06-12] MEDS: SODIUM CHLORIDE 0.9% INJ SCH (22:14)
[2019-06-12] MEDS ORDERED: CHLORASEPTIC SPRAY MT PRN (22:47)
[2019-06-13] MEDS: TORADOL IV SCH ×4 (01:41→22:59)
[2019-06-13] MEDS: REGLAN IV SCH ×4 (01:41→22:59)
[2019-06-13] MEDS: NS 1,000 ML IV SCH ×4 (01:43→22:45)
[2019-06-13] MEDS: ATIVAN IV PRN ×5 (02:26→22:45)
[2019-06-13 06:47] LABS: BASO# 0.04 X1000 (0.0-0.2); BASO% 0.3 % (0.0-0.8); EOS% 1.7 % (0.0-10.0); HEMATOCRIT 45.1 % (42.0-52.0); HEMOGLOBIN 15.1 g/dL (14.0-18.0); IMM GRAN# 0.04 X1000 (0.0-0.04); IMM GRAN% 0.3 % (0.0-0.5); LYMPH# 3.28 X1000 (1.2-3.4); LYMPH% 28.1 % (20.5-51.1); MCH 30.9 PG (27-31); MCHC 33.5 g/dL (33-37); MCV 92.4 FL (81-99); MONO# 0.81 X1000 (0.11-0.59); MONO% 6.9 % (1.7-9.3); MPV 10.5 FL (7.4-10.4); NEUT# 7.31 X1000 (1.4-6.5); NEUT% 62.7 % (42.2-75.2); PLT 430 X1000 (130-400); RBC 4.88 XMIL (4.7-6.1); RDW 14.9 % (11.5-14.5); WBC 11.68 X1000 (4.8-10.8)
[2019-06-13 07:23] LABS: AGAP 11; BUN 6 mg/dL (8-22); CALCIUM 8.1 mg/dL (8.8-10.2); CHLORIDE 104 mmol/L (98-107); COSMO 272; CREATININE 0.6 mg/dL (0.7-1.2); ESTIMATED GFR > 60; GLUCOSE 102 mg/dL (70-104); POTASSIUM 4.2 mmol/L (3.5-5.1); SODIUM 137 mmol/L (136-145); TCO2 23 mmol/L (25-35)
--- NOTE | 2019-06-13 08:16 | Diag Imaging Result Doc PS360 ---
EXAM: ABDOMEN FLAT/UPRIGHT - 06/13/2019 HISTORY: SBO TECHNIQUE: Supine and upright abdomen COMPARISON: 06/12/2019 CT abdomen/pelvis FINDINGS: There is gas visible in multiple small bowel loops, but there is no substantial gaseous small bowel distention identified. This may suggest some improvement in small bowel distention compared to the prior CT, but many of the distended small bowel loops on the CT were distended primarily with fluid, rather than air. There are gas and retained fecal debris visible in mostly nondistended colon. There is no free air identified. IMPRESSION: Nonspecific bowel gas pattern. Electronically signed by Troy Sarkar 06/13/2019 8:13 AM
[2019-06-13] MEDS: HUMULIN R SUBQ SCH ×4 (08:24→22:32)
[2019-06-13] MEDS: DULCOLAX PR SCH ×2 (08:44→15:35)
[2019-06-13] MEDS: SODIUM CHLORIDE 0.9% INJ SCH (09:30)
[2019-06-13] MEDS: PROTONIX IV SCH ×2 (09:30→22:58)
[2019-06-13] MEDS ORDERED: XYLOCAINE 2% VISCOUS MT ONE (11:22)
--- NOTE | 2019-06-13 12:51 | Diag Imaging Result Doc PS360 ---
EXAM: CHEST-PORTABLE - 06/13/2019 HISTORY: Tube placement TECHNIQUE: Portable exam for nasogastric tube placement COMPARISON: 06/12/2019 FINDINGS: The tip of the nasogastric tube is now at the expected location of the distal stomach or proximal duodenum. IMPRESSION: Tip of nasogastric tube at distal stomach or proximal duodenum. Electronically signed by Troy Sarkar 06/13/2019 12:48 PM
--- NOTE | 2019-06-13 13:00 | PROGRESS NOTE ---
DATE: 06/13/2019 SUBJECTIVE: The patient feels better this morning and has been in a very good mood. He accidentally pulled his NG tube out a couple of hours ago, however. OBJECTIVE: Vital Signs: Temperature 98.5 degrees, pulse 92 per minute, respiratory rate 18 per minute, blood pressure 147/91, pulse oximetry 96% on room air. General: Patient is alert and oriented x3. He does not appear to be in any acute distress. Cardiovascular System: First and second heart sounds are audible without any murmurs or gallops. Respiratory System: No respiratory distress noted. Bilateral lung air entry is moderately decreased but there are no rales or rhonchi present on auscultation. Gastrointestinal System: Abdomen is nondistended. It is soft and minimally tender all over on deep palpation. Normal bowel sounds are present. Musculoskeletal System: No deformities present. Diagnostic Data: CBC shows WBC count of 11.68. Rest of the CBC is nondiagnostic. In comparison, his WBC count was 17.16 yesterday. Basic metabolic panel is nondiagnostic this morning. IMPRESSION: 1. Partial small bowel obstruction. 2. Type 2 diabetes mellitus. 3. Hypertension. PLAN: We are going to reinsert the NG tube and keep him NPO with IV fluids. I believe that should further improve his clinical condition and I believe he will not need any surgical intervention. Further recommendations will be given as per hospital course. cc: Jonna Marrero MD
[2019-06-13] MEDS: NICODERM PATCH TD PRN (22:32)
[2019-06-13] MEDS: BENADRYL IV PRN (22:44)
[2019-06-14] MEDS: DULCOLAX PR SCH ×2 (02:52→09:05)
[2019-06-14] MEDS: ATIVAN IV PRN ×3 (02:56→22:43)
[2019-06-14] MEDS: REGLAN IV SCH ×4 (04:38→22:44)
[2019-06-14] MEDS: TORADOL IV SCH ×4 (04:39→22:43)
[2019-06-14] MEDS: BENADRYL IV PRN (04:39)
[2019-06-14] MEDS: HUMULIN R SUBQ SCH (06:23)
[2019-06-14 06:31] LABS: BASO# 0.04 X1000 (0.0-0.2); BASO% 0.3 % (0.0-0.8); EOS# 0.32 X1000 (0.0-0.7); EOS% 2.1 % (0.0-10.0); HEMATOCRIT 42.8 % (42.0-52.0); HEMOGLOBIN 14.3 g/dL (14.0-18.0); IMM GRAN# 0.04 X1000 (0.0-0.04); IMM GRAN% 0.3 % (0.0-0.5); LYMPH# 6.19 X1000 (1.2-3.4); LYMPH% 40.5 % (20.5-51.1); MCHC 33.4 g/dL (33-37); MCV 92.8 FL (81-99); MONO# 1.87 X1000 (0.11-0.59); MONO% 12.2 % (1.7-9.3); MPV 10.6 FL (7.4-10.4); NEUT# 6.83 X1000 (1.4-6.5); NEUT% 44.6 % (42.2-75.2); PLT 401 X1000 (130-400); RBC 4.61 XMIL (4.7-6.1); RDW 14.6 % (11.5-14.5); WBC 15.29 X1000 (4.8-10.8)
[2019-06-14 06:55] LABS: AGAP 11; BUN 10 mg/dL (8-22); CALCIUM 8.1 mg/dL (8.8-10.2); CHLORIDE 103 mmol/L (98-107); COSMO 273; CREATININE 0.7 mg/dL (0.7-1.2); ESTIMATED GFR > 60; GLUCOSE 99 mg/dL (70-104); POTASSIUM 3.8 mmol/L (3.5-5.1); SODIUM 137 mmol/L (136-145); TCO2 23 mmol/L (25-35)
[2019-06-14 08:40] LABS: LYMPHS 39 % (21-51); MONO 14 % (1-9); SEGS 47 % (42-75)
[2019-06-14] MEDS ORDERED: ATIVAN IV ONE (08:41)
[2019-06-14] MEDS: PROTONIX IV SCH ×2 (09:06→21:07)
[2019-06-14] MEDS: SODIUM CHLORIDE 0.9% INJ SCH (09:06)
--- NOTE | 2019-06-14 10:04 | Diag Imaging Result Doc PS360 ---
EXAM: CT ABD/PELVIS W/IV CONT ONLY HISTORY: eval sbo TECHNIQUE: Routine with IV contrast. No enteric contrast. COMPARISON: 06/12/2019 FINDINGS: Prominent linear markings are noted at the bilateral lung bases. Interval resolution of partial mechanical small bowel obstruction with normal caliber small bowel loops throughout the abdomen. There is new rectosigmoid wall thickening and enhancement consistent with proctocolitis. No evidence for abscess. Ascending, transverse, and descending colon demonstrate mild to moderate stool burden. Pancreas, adrenal glands, and kidneys are unremarkable. There is no hydronephrosis. No free air or free fluid is appreciated. Urinary bladder and reproductive organs are grossly unremarkable. There is moderate calcific atherosclerotic disease. No aortic aneurysm or retroperitoneal or mesenteric adenopathy is identified. Liver unremarkable. Cholecystectomy clips are noted with biliary prominence. Status post splenectomy with small splenules left upper quadrant. IMPRESSION: 1.New proctitis and colitis sigmoid colon. 2.Interval resolution of previous partial mechanical small bowel obstruction. This exam was performed using automated exposure control, adjustment of mA or kV according to patient size, and/or use of iterative reconstruction technique. Electronically signed by Viola Camarena 06/14/2019 9:27 AM
[2019-06-14] MEDS: NS 1,000 ML IV SCH ×3 (10:56→21:50)
[2019-06-14] MEDS ORDERED: D50W SYRINGE IV ONE (12:03)
[2019-06-14] MEDS: HUMULIN R (PARKWAY) SUBQ SCH ×3 (12:20→21:41)
[2019-06-14] MEDS: ZOSYN 3.375 GM in NS 50 ML IV SCH ×3 (13:07→23:40)
--- NOTE | 2019-06-14 18:35 | GENERAL SURGERY PROGRESS NOTE ---
DATE: 06/14/2019 SUBJECTIVE: He is no longer having any pain. He says he is having bowel function. He is not vomiting any further. He is tolerating some clear liquids. A CT scan was repeated that showed some proctocolitis. His endoscopic history is unclear, but I do think it warrants repeating. OBJECTIVE: Abdomen: Soft. Cardiovascular: Normal rate, regular rhythm. Pulmonary: No increased work of breathing. LABS: White count is up to 15; it was down to 11. His hematocrit is 42. Creatinine 0.7. ASSESSMENT AND PLAN: This is a 63-year-old gentleman who presented with symptoms of bowel obstruction. This seems to have resolved. He now has changes concerning for proctocolitis. I think at least a flexible sigmoidoscopy is indicated. I would recommend engaging Gastroenterology. I would also consider checking him for stool enteric pathogens, including Clostridium difficile. I will continue to follow along, but currently I do think he is improving. cc: Ruddy Gabriel MD
--- NOTE | 2019-06-14 19:19 | PROGRESS NOTE ---
DATE: 06/14/2019 SUBJECTIVE: The patient completely refuses to have an NG tube. He has removed his tube 3 different times. He also refuses to keep an IV. He has removed this 3 or 4 times as well. He has threatened to leave AMA on different occasions. His son has been able to keep him in the hospital. PLAN: We are going to repeat his CT of his abdomen. If his small bowel obstruction has improved, then we are going to try and feed him. Further orders as needed. cc: Maynor Jasso MD
[2019-06-14] MEDS: SEROQUEL PO SCH (21:07)
[2019-06-14] MEDS: XANAX PO SCH (21:07)
[2019-06-15] MEDS: TORADOL IV SCH ×4 (04:01→22:44)
[2019-06-15] MEDS: REGLAN IV SCH ×4 (04:01→22:44)
[2019-06-15] MEDS: ATIVAN IV PRN ×4 (04:01→21:04)
[2019-06-15] MEDS: ZOSYN 3.375 GM in NS 50 ML IV SCH ×3 (05:53→17:15)
[2019-06-15] MEDS: HUMULIN R (PARKWAY) SUBQ SCH ×4 (06:00→21:06)
[2019-06-15] MEDS: SODIUM CHLORIDE 0.9% INJ SCH ×2 (09:30→21:05)
[2019-06-15] MEDS: PROTONIX IV SCH ×2 (09:31→21:04)
[2019-06-15] MEDS: XANAX PO SCH ×2 (09:31→21:04)
[2019-06-15] MEDS: NS 1,000 ML IV SCH ×3 (09:45→17:57)
[2019-06-15 11:19] LABS: HEMOGLOBIN 12.9 g/dL (14.0-18.0); WBC 13.85 X1000 (4.8-10.8)
[2019-06-15 11:20] LABS: BASO# 0.04 X1000 (0.0-0.2); BASO% 0.3 % (0.0-0.8); EOS# 0.55 X1000 (0.0-0.7); HEMATOCRIT 39.2 % (42.0-52.0); IMM GRAN# 0.03 X1000 (0.0-0.04); IMM GRAN% 0.2 % (0.0-0.5); LYMPH# 2.65 X1000 (1.2-3.4); LYMPH% 19.1 % (20.5-51.1); MCH 31.5 PG (27-31); MCHC 32.9 g/dL (33-37); MCV 95.6 FL (81-99); MONO# 1.53 X1000 (0.11-0.59); MPV 10.3 FL (7.4-10.4); NEUT# 9.05 X1000 (1.4-6.5); NEUT% 65.4 % (42.2-75.2); PLT 354 X1000 (130-400); RDW 14.9 % (11.5-14.5)
[2019-06-15 11:39] LABS: AGAP 8; ALBUMIN 3.3 g/dL (3.5-5.0); ALKALINE PHOSPHATASE 90 U/L (32-122); BUN 7 mg/dL (8-22); CALCIUM 7.7 mg/dL (8.8-10.2); CHLORIDE 105 mmol/L (98-107); COSMO 274; CREATININE 0.7 mg/dL (0.7-1.2); ESTIMATED GFR > 60; GLUCOSE 97 mg/dL (70-104); GOT 13 U/L (10-34); GPT 15 U/L (10-44); POTASSIUM 3.9 mmol/L (3.5-5.1); SODIUM 138 mmol/L (136-145); TCO2 25 mmol/L (25-35)
--- NOTE | 2019-06-15 12:12 | PROGRESS NOTE ---
DATE: 06/15/2019 SUBJECTIVE: Patient reports definitely feeling better. Denies any fever or chills, and abdominal pain is definitely much better. OBJECTIVE: Vital Signs: Temperature 98.2 degrees, heart rate 97, respiratory rate 18, blood pressure 114/79, and O2 saturation 95% on room air. General: This is a chronically ill-appearing looking older than his stated age 63-year-old male lying in bed in no acute distress. Cardiovascular: S1, S2 heard. No murmurs, gallops, or rubs. Regular rate and rhythm. Respiratory: Clear bilaterally to auscultation. No work of breathing or using accessory muscles. Abdomen: Soft and nontender to palpation. Bowel sounds present. No organomegaly. Extremities: No clubbing, cyanosis, or edema. Peripheral pulses present in both legs. Neurological: Patient is alert and oriented x3. Moves all 4 extremities. LABORATORY DATA: White cell count 13.85, hemoglobin 12.9 hematocrit 39.2, and platelets 354,000 with normal BMP. Glucose 143. Calcium 7.7. ASSESSMENT AND PLAN: 1. Partial small bowel obstruction. That condition as per last CT scan of the abdomen seems to be improved, but it shows also new proctitis and colitis of the sigmoid colon. In that regard, Dr. Gabriel, who is following this patient recommends to have at least flexible sigmoidoscopy and GI consult. In that regard, we are going to transfer this patient to [facility] for further evaluation and treatment by GI. 2. Diabetes mellitus type 2. We will continue with sliding scale insulin. Accu-Chek before meals and also at bedtime. 3. Hypertension. We will continue with current medications. 4. Disposition: Patient is being transferred to [facility] for GI evaluation. cc: Ariel Negrete MD
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
[2019-06-15] MEDS: SEROQUEL PO SCH (21:04)
[2019-06-16] MEDS: ZOSYN 3.375 GM in NS 50 ML IV SCH ×3 (01:17→11:17)
[2019-06-16] MEDS: ATIVAN IV PRN ×4 (01:17→17:23)
[2019-06-16] MEDS: NS 1,000 ML IV SCH ×3 (04:36→21:23)
[2019-06-16] MEDS: REGLAN IV SCH ×4 (05:28→21:55)
[2019-06-16] MEDS: TORADOL IV SCH ×4 (05:29→21:55)
[2019-06-16] MEDS: HUMULIN R (PARKWAY) SUBQ SCH ×5 (06:11→21:48)
[2019-06-16 06:43] LABS: BASO# 0.05 X1000 (0.0-0.2); BASO% 0.4 % (0.0-0.8); EOS# 0.57 X1000 (0.0-0.7); EOS% 4.5 % (0.0-10.0); HEMATOCRIT 37.9 % (42.0-52.0); HEMOGLOBIN 12.9 g/dL (14.0-18.0); IMM GRAN# 0.03 X1000 (0.0-0.04); IMM GRAN% 0.2 % (0.0-0.5); LYMPH# 2.61 X1000 (1.2-3.4); LYMPH% 20.5 % (20.5-51.1); MCH 31.5 PG (27-31); MCV 92.4 FL (81-99); MONO# 1.83 X1000 (0.11-0.59); MONO% 14.4 % (1.7-9.3); NEUT# 7.65 X1000 (1.4-6.5); PLT 365 X1000 (130-400); RDW 14.5 % (11.5-14.5); WBC 12.74 X1000 (4.8-10.8)
[2019-06-16 07:16] LABS: AGAP 9; ALB/GLOB RATIO 1.2; ALBUMIN 3.1 g/dL (3.5-5.0); ALKALINE PHOSPHATASE 80 U/L (32-122); BUN 5 mg/dL (8-22); CALCIUM 8.3 mg/dL (8.8-10.2); CHLORIDE 106 mmol/L (98-107); COSMO 271; CREATININE 0.6 mg/dL (0.7-1.2); ESTIMATED GFR > 60; GLUCOSE 93 mg/dL (70-104); GOT 11 U/L (10-34); GPT 12 U/L (10-44); SODIUM 137 mmol/L (136-145); TCO2 22 mmol/L (25-35); TOTAL BILIRUBIN 0.29 mg/dL (0.20-1.00); TOTAL PROTEIN 5.7 g/dL (6.3-8.3)
[2019-06-16] MEDS: XANAX PO SCH ×2 (08:44→21:46)
[2019-06-16] MEDS: SODIUM CHLORIDE 0.9% INJ SCH (08:44)
[2019-06-16] MEDS: PROTONIX IV SCH ×3 (08:44→21:42)
[2019-06-16] MEDS: BENADRYL IV PRN (13:02)
[2019-06-16 17:10] LABS: UR AMPHETAMINES QUAL NONE DETECTED (NONE DETECT); UR BARBITUATES QUAL NONE DETECTED (NONE DETECT); UR BENZODIAZEPIN QUAL NONE DETECTED (NONE DETECT); UR OPIATES QUAL NONE DETECTED (NONE DETECT)
[2019-06-16 17:11] LABS: UR CANNABINOIDS QUAL NONE DETECTED (NONE DETECT); UR COCAINE QUAL NONE DETECTED (NONE DETECT); UR METHADONE QUAL NONE DETECTED (NONE DETECT); UR OXYCODONE QUAL NONE DETECTED (NONE DETECT); UR PCP QUAL NONE DETECTED (NONE DETECT)
--- NOTE | 2019-06-16 17:32 | PROGRESS NOTE ---
DATE: 06/16/2019 Mr. Polo is feeling better. He is asking about thinks he is a little stronger, hoping he can go home. OBJECTIVE: Vitals: Temperature 98.3 degrees, pulse 61, respirations 16, blood pressure 147/77. Eyes: Pupils are equal, round. Lungs: Clear in all lung boggs. Cardiovascular: Regular rhythm and rate without murmur or S3. LABS: Urine output was 3400 mL. Blood sugars 75, 97, and 78. cc: Leif Hardy MD
--- NOTE | 2019-06-16 17:34 | PROGRESS NOTE ---
DATE: 06/16/2019 SUBJECTIVE: He was sent over here to consider doing a flexible sigmoidoscopy, for GI consult. He states he feels better. He is talking about wanting to go home. OBJECTIVE: Vital signs: His temp is 98.3 degrees, pulse 60, respirations 16, blood pressure 147/77. HEENT: Pupils are equal and round. Lungs: Clear in all lung boggs. Cardiovascular: Regular rhythm and rate without murmur or S3. Abdomen: Soft. Skin: Warm and dry. ASSESSMENT AND PLAN: Continue his current orders. See what GI wants to do. He is still on antibiotics, Zosyn 3.375 g q.6 hours. He is on Seroquel 200 mg at bedtime. I will get physical therapy involved and see how he does. He is on a full liquid diet. cc: Leif Hardy MD
[2019-06-16] MEDS: SEROQUEL PO SCH (21:45)
[2019-06-17] MEDS: ATIVAN IV PRN ×3 (00:01→11:13)
[2019-06-17] MEDS: ZOSYN 3.375 GM in NS 50 ML IV SCH ×2 (00:05→08:19)
[2019-06-17] MEDS: NS 1,000 ML IV SCH (00:06)
[2019-06-17] MEDS: NICODERM PATCH TD PRN (00:12)
--- NOTE | 2019-06-17 00:48 | GASTROENTEROLOGY CONSULTATION ---
DATE: 06/17/2019 REASON FOR CONSULTATION: Colitis and proctitis. HISTORY OF PRESENT ILLNESS: Mr. Maynor Polo is a 63-year-old gentleman with a past medical history of diabetes, hypertension, hyperlipidemia, schizophrenia, polysubstance abuse, COPD, PTSD who presents with 2 to 3 weeks of intermittent right lower quadrant pain. On presentation, the patient was found to have partial bowel obstruction. He reports having similar episodes in the past requiring ex lap a in 2012. He denies any diarrhea or rectal bleeding and says that over the last year he has lost 100 pounds without trying. No nausea or vomiting. No chest pain or shortness of breath. The patient had an endoscopy and colonoscopy on 03/22/2019 that showed a mild esophageal stricture with esophagitis that was dilated, H pylori gastritis that has not been untreated, and a normal colonoscopy. REVIEW OF SYSTEMS: As per HPI, otherwise 12 point review of systems is negative. PAST MEDICAL HISTORY: As per HPI. PAST SURGICAL HISTORY: Splenectomy, ex lap in 2012, left TKA. HOME MEDICATIONS: Gabapentin, Xanax, seroquel ALLERGIES: Hydrocodone. FAMILY HISTORY: Of bladder cancer in father. No family history of GI malignancies. SOCIAL HISTORY: He is a 1/2 pack per day smoker. No alcohol or drug use. PHYSICAL EXAMINATION: Vital Signs: Temperature is 98 degrees, heart rate is 76, respiratory rate 18, blood pressure 133/70, O2 saturation 99% on room air. General: The patient is awake, alert, no acute distress. HEENT: Sclerae are anicteric. Moist mucous membranes. Extraocular movement intact. Neck: Supple. No JVD or lymphadenopathy. Cardiac: Regular rate and rhythm. No murmurs. Lungs: Clear to auscultation bilaterally. No wheezing. Abdomen: Soft, nontender, nondistended. Normoactive bowel sounds. No rebound or guarding. Extremities: No clubbing, cyanosis or edema. Left TKA. LABORATORY DATA: White count of 12.74, hemoglobin of 12.9, platelets of 365,000. Chemistries: Sodium 137, potassium 4.0, chloride of 106, bicarbonate 22, BUN of 5, creatinine 0.6, glucose of 115. LFTs are normal. Lipase on admission was 15 on 06/12/2019. UA was negative. U tox was unremarkable. IMAGING: CT on admission on 06/12/2019 showed partial mechanical small-bowel obstruction with transition point in the left upper quadrant. Chest x-ray showed good position of the NG tube in the stomach. KUB on 06/13/2019 showed nonspecific bowel gas pattern. Repeat CT on 06/14/2019 showed new proctitis and colitis in the sigmoid colon, interval resolution of previous partial mechanical small bowel obstruction. ASSESSMENT AND PLAN: Mr. Maynor Polo is a 63-year-old gentleman with a past medical history of a small bowel obstruction requiring ex lap in the past, who presents with abdominal pain, found to have partial small-bowel obstruction. On presentation, he had leukocytosis that is now improving with antibiotics and NG tube decompression. He is currently tolerating a full liquid diet without nausea, vomiting or abdominal pain. He denies any rectal bleeding or diarrhea. He had a recent colonoscopy on 03/22/[address] Jacobs, which was normal without evidence of colitis. There was no evidence of colitis on his initial CT on presentation as well. At this time, I recommend supportive care. No indication for diagnostic colonoscopy at this time unless the patient develops diarrhea at which point I would recommend sending stool studies for infectious diarrhea including C diff and culture. # pSBO # Colitis/proctitis # History of esophageal stricture Thank you for this consultation. We will follow with you. Please call with any questions or concerns. EVI
[2019-06-17] MEDS: TORADOL IV SCH (04:29)
[2019-06-17] MEDS: REGLAN IV SCH (04:30)
[2019-06-17] MEDS: HUMULIN R (PARKWAY) SUBQ SCH ×2 (06:23→07:17)
[2019-06-17 07:45] LABS: BASO# 0.06 X1000 (0.0-0.2); BASO% 0.6 % (0.0-0.8); EOS# 0.48 X1000 (0.0-0.7); EOS% 4.7 % (0.0-10.0); HEMATOCRIT 38.7 % (42.0-52.0); HEMOGLOBIN 13.5 g/dL (14.0-18.0); IMM GRAN# 0.02 X1000 (0.0-0.04); IMM GRAN% 0.2 % (0.0-0.5); LYMPH# 3.49 X1000 (1.2-3.4); LYMPH% 34.4 % (20.5-51.1); MCH 31.9 PG (27-31); MCHC 34.9 g/dL (33-37); MCV 91.5 FL (81-99); MONO# 1.28 X1000 (0.11-0.59); MONO% 12.6 % (1.7-9.3); MPV 11.2 FL (7.4-10.4); NEUT# 4.81 X1000 (1.4-6.5); NEUT% 47.5 % (42.2-75.2); PLT 402 X1000 (130-400); RBC 4.23 XMIL (4.7-6.1); RDW 14.3 % (11.5-14.5); WBC 10.14 X1000 (4.8-10.8)
[2019-06-17 07:59] LABS: AGAP 10; ALB/GLOB RATIO 1.2; ALBUMIN 3.5 g/dL (3.5-5.0); ALKALINE PHOSPHATASE 84 U/L (32-122); BUN 3 mg/dL (8-22); CALCIUM 8.8 mg/dL (8.8-10.2); CHLORIDE 103 mmol/L (98-107); COSMO 276; CREATININE 0.5 mg/dL (0.7-1.2); ESTIMATED GFR > 60; GLUCOSE 94 mg/dL (70-104); GOT 12 U/L (10-34); GPT 13 U/L (10-44); POTASSIUM 3.5 mmol/L (3.5-5.1); SODIUM 140 mmol/L (136-145); TCO2 27 mmol/L (25-35); TOTAL BILIRUBIN 0.26 mg/dL (0.20-1.00); TOTAL PROTEIN 6.5 g/dL (6.3-8.3)
[2019-06-17] MEDS: XANAX PO SCH (08:20)
[2019-06-17] MEDS: SODIUM CHLORIDE 0.9% INJ SCH (10:31)
[2019-06-17] MEDS: PROTONIX IV SCH (10:31)
[2019-06-17 14:20] VITALS: BP 149/82
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
--- NOTE | 2019-06-18 05:33 | DISCHARGE SUMMARY ---
ADMISSION DATE: 06/12/2019 DISCHARGE DATE: 06/17/2019 PRIMARY CARE PHYSICIAN: None. ADMISSION DIAGNOSES: 1. Partial small-bowel obstruction. 2. Diabetes type 2. 3. Hypertension. 4. Schizophrenia. 5. History of polysubstance abuse. DISCHARGE DIAGNOSES: 1. Partial small bowel obstruction, resolved. 2. Proctitis and colitis of sigmoid colon, improved. 3. Diabetes type 2. 4. Hypertension. SUMMARY OF FINDINGS: This is a 63-year-old male who presented with complaints of right-sided abdominal cramping and sharp pain that started about 8 to 10 hours prior to arriving. He had some nausea but no vomiting. He states that this pain feels like his previous bowel obstructions. CT of the abdomen and pelvis revealed a partial mechanical small-bowel obstruction with a transition point in the left upper quadrant. He was admitted and NG tube was placed. We consulted General Surgery. We did do an abdomen and pelvic CT on 06/14/2019 that showed interval resolution of the previous partial mechanical small-bowel obstruction, but new proctitis and colitis of the sigmoid colon. We consulted Gastroenterology who stated he had had a recent colonoscopy on 03/22/[address] Jacobs which was found normal without evidence of colitis. There was no evidence of colitis on his initial CT on presentation, and they recommended supportive care. No indication for diagnostic colonoscopy at this time. He is tolerating a GI soft diet. He has remained afebrile for greater than 24 hours, and it is now felt that he can safely be discharged home with home health care. DISCHARGE MEDICATIONS: 1. Alprazolam 2 mg p.o. b.i.d. 2. Quetiapine fumarate 200 mg p.o. at bedtime. 3. Augmentin 875 1 p.o. q.12 hours. 4. Gabapentin 800 mg p.o. t.i.d. 5. Omeprazole 20 mg p.o. daily. FOLLOW-UP: Primary care physician in the next 1 to 2 weeks. TIME SPENT: 35 minute discharge. Dictated by MARILYN Kelly for Mook Rose MD cc: MARILYN Kelly MD Dr. Awoniyi, MD
== END 2019-06-17 16:39 | disposition home health service (06) | DRG 390 ==
LOC: P.ED 04:05 → P.MEDSURG 10:17 → SUATTDRO 10:17 → 3N 06-15 14:49
PROVIDERS: ATTEND Internal Medicine

== ENCOUNTER 2019-06-19 09:00 | Inpatient (IN) ==
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
[2019-06-19] MEDS ORDERED: NS 1,000 ML IV ONE (09:35)
[2019-06-19] MEDS ORDERED: ZOFRAN IV ONE (09:35)
[2019-06-19 09:58] LABS: BASO# 0.09 X1000 (0.0-0.2); BASO% 0.7 % (0.0-0.8); EOS# 0.26 X1000 (0.0-0.7); EOS% 2.1 % (0.0-10.0); HEMATOCRIT 45.9 % (42.0-52.0); IMM GRAN# 0.11 X1000 (0.0-0.04); IMM GRAN% 0.9 % (0.0-0.5); LYMPH% 31.3 % (20.5-51.1); MCH 31.7 PG (27-31); MCHC 34.9 g/dL (33-37); MCV 91.1 FL (81-99); MONO# 1.16 X1000 (0.11-0.59); MONO% 9.3 % (1.7-9.3); MPV 10.5 FL (7.4-10.4); NEUT# 6.96 X1000 (1.4-6.5); NEUT% 55.7 % (42.2-75.2); PLT 576 X1000 (130-400); RBC 5.04 XMIL (4.7-6.1); RDW 14.9 % (11.5-14.5); WBC 12.48 X1000 (4.8-10.8)
[2019-06-19 10:45] LABS: AGAP 10; ALB/GLOB RATIO 1.1; ALBUMIN 3.7 g/dL (3.5-5.0); ALKALINE PHOSPHATASE 91 U/L (32-122); BUN 6 mg/dL (8-22); CALCIUM 9.4 mg/dL (8.8-10.2); CHLORIDE 97 mmol/L (98-107); COSMO 273; CREATININE 0.7 mg/dL (0.7-1.2); ESTIMATED GFR > 60; GLUCOSE 128 mg/dL (70-104); GOT 10 U/L (10-34); GPT 14 U/L (10-44); LIPASE 31 U/L (13-60); POTASSIUM 4.5 mmol/L (3.5-5.1); SODIUM 137 mmol/L (136-145); TCO2 30 mmol/L (25-35); TOTAL BILIRUBIN < 0.15 mg/dL (0.20-1.00); TOTAL PROTEIN 7.1 g/dL (6.3-8.3)
[2019-06-19] MEDS ORDERED: MORPHINE IV ONE (10:57)
[2019-06-19 10:59] LABS: BILIRUBIN URINE NEGATIVE (NEGATIVE); BLOOD URINE NEGATIVE (NEGATIVE); COLOR STRAW; GLUCOSE URINE NEGATIVE (NEGATIVE); KETONE URINE NEGATIVE (NEGATIVE); LEUKOCYTES URINE NEGATIVE (NEGATIVE); NITRITE URINE NEGATIVE (NEGATIVE); PROTEIN URINE NEGATIVE (NEGATIVE); SP GRAVITY URINE 1.006; TURBIDITY URINE CLEAR (CLEAR); UR EPITHELIAL CELLS <10 /HPF (<10); URINE BACTERIA NEGATIVE /HPF; URINE RBC <10 /HPF (<10); URINE SOURCE CLEAN CATCH; URINE WBC <10 /HPF (<10); UROBILINOGEN URINE NORMAL (NORMAL)
[2019-06-19 11:17] LABS: UR AMPHETAMINES MT NONE DETECTED (NONE DETECT); UR BARBITUATES MT NONE DETECTED (NONE DETECT); UR BENZODIAZ MT PRESUMPTIVE POS (NONE DETECT); UR CANNABIS MEDTOX NONE DETECTED (NONE DETECT); UR COCAINE MT NONE DETECTED (NONE DETECT); UR METHADONE MEDTOX NONE DETECTED (NONE DETECT); UR OPIATES MT NONE DETECTED (NONE DETECT); UR OXYCODONE MEDTOX NONE DETECTED (NONE DETECT); UR PCP MEDTOX NONE DETECTED (NONE DETECT)
--- NOTE | 2019-06-19 12:11 | Diag Imaging Result Doc PS360 ---
EXAM: CT ABD/PELVIS W/IV CONT ONLY INDICATION: abd pain TECHNIQUE: This exam was performed using automated exposure control, adjustment of mA or kV according to patient size, and/or use of iterative reconstruction technique. COMPARISON: 06/14/2019 FINDINGS: There is mild subsegmental atelectasis and/or scarring at the lung bases. There has been a prior splenectomy. There has been a previous cholecystectomy. There is trace fluid at the inferior tip of the liver and layering in the pelvis. The liver, pancreas, adrenal glands, kidneys, and urinary bladder are unremarkable. There are small wall hernias bilaterally that contain only fat. The appendix is normal. There are several loops of small bowel that are fluid-filled and exhibit mild distention. These are mainly in the right side of the abdomen. There is feculent material in a few of the small bowel loops indicating slow bowel transit. This is nonspecific but is suspicious for a partial small bowel obstruction. There is mild mesenteric edema around these loops of small bowel in the right lower quadrant. There is a potential transition point in the right lower quadrant where there is mild small bowel wall thickening. Stool is seen in the colon. There is no colonic wall thickening. The remainder of the GI tract is essentially unremarkable. IMPRESSION: 1.Fluid-filled loops of small bowel with mild distention that are mainly in the right lower quadrant with mesenteric edema and a potential transition point. This is suspicious for a partial small bowel obstruction. Please see above discussion. 2.Other incidental/nonacute findings detailed above. Electronically signed by Matt Lopez 06/19/2019 12:08 PM
--- NOTE | 2019-06-19 12:55 | Diag Imaging Result Doc PS360 ---
EXAM: FLAT/UPRIGHT ABD/1 VIEW CHEST INDICATION: abd pain TECHNIQUE: 3 views COMPARISON: 06/13/2019 FINDINGS: The patient's NG tube has been removed. There are nonspecific bowel gas and stool patterns. There is no nothing specific for obstruction. There is no evidence of large volume free abdominal gas. There is no evidence of organomegaly. The lungs are grossly clear. There is chronic scarring at the left lower lobe and pleural scarring at the left costophrenic angle. No new consolidation is identified. The cardiomediastinal silhouette and central vasculature are grossly unremarkable. IMPRESSION: 1.Nonspecific abdomen. 2.Stable scarring at the left lung base. Electronically signed by Matt Lopez 06/19/2019 12:53 PM
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
--- NOTE | 2019-06-19 14:36 | GENERAL SURGERY CONSULTATION ---
DATE: 06/19/2019 REQUESTING PHYSICIAN: Emergency Department. REASON FOR CONSULTATION: Bowel obstruction. HISTORY OF PRESENT ILLNESS: A 63-year-old gentleman with a history of abdominal trauma and splenectomy and has had a history of bowel obstruction, who is presenting back with a recurrent bowel obstruction. He was recently discharged 2 days ago with a similar episode. He had a CT scan when he came to the emergency department that showed a partial small-bowel obstruction with a transition point in left upper quadrant. This is likely secondary to adhesions from his splenectomy. He is currently complaining of abdominal pain, 9/10 in his abdomen. I was asked by the emergency department to evaluate him. PAST MEDICAL HISTORY: Includes diabetes mellitus type 2, hypertension, hyperlipidemia, polysubstance abuse, schizophrenia. PAST SURGICAL HISTORY: Left [id number] amputation, splenectomy. SOCIAL HISTORY: Opiate addiction. ALLERGIES: Hydrocodone. HOME MEDICATIONS: Currently being reviewed. FAMILY HISTORY: Reviewed with patient, noncontributory. REVIEW OF SYSTEMS: Fourteen point systems were reviewed and negative except those specified in the HPI. PHYSICAL EXAMINATION: Vital Signs: Patient is currently afebrile. His vital signs stable. General: No acute distress. HEENT: Normocephalic, atraumatic. Pupils equal, round, reactive to light. Mucous membranes moist. Oropharynx benign. Neck: Supple. Trachea midline. Cardiovascular: Regular rate and rhythm. Lungs: Grossly clear. Abdomen: Soft. Some tenderness but no peritoneal signs. Extremities: Moves all extremities. Neurologic: Grossly intact. Skin: No signs of jaundice. Extremities: Moves all extremities, but left above the knee amputation noted. Vascular: All extremities perfused. Neurologic: Grossly intact. Skin: No signs of jaundice. LABORATORY DATA: White blood count is 12. Remainder of labs are reviewed. IMAGING: CT scan independently reviewed and radiology report reviewed and noted. ASSESSMENT AND PLAN: A 63-year-old gentleman with a bowel obstruction. Bowel obstruction. At this time, this could be continuation of his previous bowel obstruction that has not fully resolved. We will admit him to the Hospitalist Service and resuscitate him. If he does not seem to improve, we will consider surgical intervention but at this time, we will plan on small-bowel series and see if there is actually a transition point and we will try to do this tomorrow. cc: Kip Mcgee MD
[2019-06-19] MEDS ORDERED: ZOFRAN IV PRN (14:43)
[2019-06-19] MEDS: MORPHINE IV PRN ×3 (14:54→23:19)
[2019-06-19] MEDS: NS 1,000 ML IV SCH (14:54)
[2019-06-19] MEDS ORDERED: DULCOLAX PR ONE (18:07)
[2019-06-19] MEDS ORDERED: TORADOL IV PRN (18:46)
[2019-06-20] MEDS: NS 1,000 ML IV SCH (04:59)
[2019-06-20] MEDS: MORPHINE IV PRN ×4 (05:06→19:06)
[2019-06-20 05:52] LABS: BASO# 0.11 X1000 (0.0-0.2); EOS% 4.6 % (0.0-10.0); HEMATOCRIT 39.8 % (42.0-52.0); HEMOGLOBIN 13.6 g/dL (14.0-18.0); IMM GRAN# 0.11 X1000 (0.0-0.04); LYMPH% 53.8 % (20.5-51.1); MCH 31.7 PG (27-31); MCHC 34.2 g/dL (33-37); MCV 92.8 FL (81-99); MONO# 0.89 X1000 (0.11-0.59); MONO% 8.1 % (1.7-9.3); MPV 10.4 FL (7.4-10.4); NEUT# 3.45 X1000 (1.4-6.5); NEUT% 31.5 % (42.2-75.2); PLT 536 X1000 (130-400); RBC 4.29 XMIL (4.7-6.1); WBC 10.96 X1000 (4.8-10.8)
[2019-06-20 06:15] LABS: AGAP 10; BUN 6 mg/dL (8-22); CALCIUM 8.4 mg/dL (8.8-10.2); CHLORIDE 104 mmol/L (98-107); COSMO 277; CREATININE 0.5 mg/dL (0.7-1.2); ESTIMATED GFR > 60; GLUCOSE 101 mg/dL (70-104); SODIUM 140 mmol/L (136-145); TCO2 26 mmol/L (25-35)
--- NOTE | 2019-06-20 07:22 | GENERAL SURGERY PROGRESS NOTE ---
DATE: 06/20/2019 SUBJECTIVE: The patient seems to be doing okay. He is resting. OBJECTIVE: Vital Signs: The patient is currently afebrile. His vital signs are stable. General: No acute distress. Resting comfortably. HEENT: Normocephalic, atraumatic. Pupils equal, round, reactive to light. Mucous membranes moist. Oropharynx benign. Neck: Supple. Trachea midline. Cardiovascular: Regular rate and rhythm. Lungs: Grossly clear. Abdomen: No peritoneal signs. Extremities: Moves all extremities. Neurologic: Resting. Skin: No signs of jaundice. Vascular: All extremities are perfused. LABORATORY DATA: White blood cell count is 10, which is down from 12, hematocrit is 39, platelet count 536,000. Remainder of labs reviewed. ASSESSMENT AND PLAN: A 63-year-old with recurrent small-bowel obstruction. Recurrent small-bowel obstruction. At this time, will follow up with small-bowel series, which is to start today. Will see if there is actually a transition point. If so, may need surgical intervention given the fact that it has come back relatively quickly. cc: Kip Mcgee MD
--- NOTE | 2019-06-20 13:18 | Diag Imaging Result Doc PS360 ---
EXAM: SMALL BOWEL SERIES ONLY INDICATION: small bowel obstruction TECHNIQUE: Oral barium contrast was administered and the bolus was followed with spot radiographs at intermittent time intervals until it reached the colon. COMPARISON: None. FINDINGS: The small bowel appears grossly normal in course, caliber, contour, and mucosal relief. No discrete stricture can be identified on this study. Barium is seen in the colon beginning at one hour 25 minutes post administration. IMPRESSION: Unremarkable small bowel barium follow-through with no evidence of stricture. Electronically signed by Matt Lopez 06/20/2019 1:16 PM
[2019-06-20] MEDS: MILK OF MAGNESIA PO SCH ×2 (14:50→21:28)
--- NOTE | 2019-06-20 15:16 | PROGRESS NOTE ---
DATE: 06/20/2019 SUBJECTIVE: Today Mr. Polo refers to be hurting. Has not had any bowel movement but no nauseation, no vomiting. OBJECTIVE: Vital signs: Blood pressure is 118/69, pulse of 57, respirations 15, temperature 98.3 degrees. General: Mr. Polo is 63-year-old gentleman. He is in bed, no distress. HEENT: Mucosa is pink and moist. Anicteric. Acyanotic. Neck: Supple. Chest: Clear to auscultation. No crepitations. No rhonchi. Cardiovascular: Regular rate and rhythm. GI: Abdomen is soft. Bowel sounds are present but very, very hypoactive. There is an old midline surgical scar in the anterior abdominal wall. No rebound. No guarding. Extremities: No pedal edema. The patient has some a left AKA. LABORATORY DATA: Has been reviewed. WBC is down to 10.96, hemoglobin is 13.6, platelet count of 536,000. Chemistry is also reviewed, completely normal. A small bowel series was unremarkable. No evidence of stricture. ASSESSMENT AND PLAN: 1. Partial small bowel obstruction with a small bowel follow-through this morning unremarkable. 2. Constipation. We will start the patient on a bowel regimen. 3. Diabetes. 4. Reactive leukocytosis. 5. Recurrent small bowel obstructions due to intra-abdominal adhesions from previous surgery. 6. Status post left [id number] amputation noted. cc: Carlos Monsivais MD
[2019-06-21] MEDS: NS 1,000 ML IV SCH ×3 (00:52→14:07)
--- NOTE | 2019-06-21 07:09 | GENERAL SURGERY PROGRESS NOTE ---
DATE: 06/21/2019 SUBJECTIVE: Small-bowel follow-through did not show any transition point. Contrast moved freely through. OBJECTIVE: Vital Signs: The patient is currently afebrile. His vital signs are stable. General: No acute distress. HEENT: Normocephalic, atraumatic. Pupils equal, round, reactive to light. Mucous membranes moist. Oropharynx benign. Neck: Supple. Trachea midline. Cardiovascular: Regular rate and rhythm. Lungs: Grossly clear. Abdomen: Soft, nontender at this time. Extremities: Moves all extremities. Neurologic: Grossly intact. Skin: No signs of jaundice. Vascular: All extremities perfused. ASSESSMENT AND PLAN: A 63-year-old gentleman with partial small-bowel obstruction. Partial small-bowel obstruction. At this time, contrast moved through, so there is no transition point. Will continue to monitor him. Will start him on a clear liquid diet and see how he does. cc: Kip Mcgee MD
[2019-06-21] MEDS: MILK OF MAGNESIA PO SCH ×2 (09:13→20:51)
--- NOTE | 2019-06-21 09:43 | HISTORY AND PHYSICAL ---
ADDENDUM: Mr. Polo is admitted today from the ER because of abdominal pain. Imaging studies have revealed suspicious partial small bowel obstruction and some constipation. The patient has also been evaluated by surgery. There is a plan for a small bowel follow through either tomorrow or Friday and go from there. Of note, Mr. Polo was just discharged from here 3 days ago for similar presentation. Please refer to the details of the HPI which has been dictated in the chart. cc: Carlos Monsivais MD
[2019-06-21] MEDS: MORPHINE IV PRN ×2 (13:19→20:51)
--- NOTE | 2019-06-21 14:10 | PROGRESS NOTE ---
DATE: 06/21/2019 SUBJECTIVE: Today Mr. Polo referred to be doing fairly okay. Still has some mild abdominal discomfort, but he was able to tolerate clear liquids. He was actually sitting at the edge of the bed urinating. OBJECTIVELY: Vital Signs: Blood pressure is 121/74, pulse of 53, respirations 16, temperature 98.3 degrees. The patient was saturating 98% on room air. General: Physical exam is fairly unremarkable, unchanged from yesterday. Abdomen: Still kind of distended with old midline surgical scar in the anterior abdominal wall, but there is rebound, no guarding. There are some hypoactive sounds, however. Chest: Clear to auscultation. Cardiovascular: Regular rate and rhythm. The patient has a left AKA noted. Central Nervous System: The patient is awake, alert, oriented. No focal deficit. LABORATORY DATA: None for today. A small bowel follow through yesterday shows unremarkable. ASSESSMENT AND PLAN: 1. Recurrent partial small bowel obstruction. A small bowel follow-through is unremarkable. 2. Constipation, improving. 3. Diabetes mellitus. 4. Reactive leukocytosis. 5. Status post left above-knee amputation noted. 6. Recurrent small bowel obstruction due to intraabdominal adhesions from previous surgeries. SUMMARY: In general, it looks like Mr. Polo is doing a lot better today. He has been started on clear liquid. If he tolerates that, we will advance it to full liquid diet tomorrow and hopefully discharge him. cc: Carlos Monsivais MD
--- NOTE | 2019-06-22 06:09 | GENERAL SURGERY PROGRESS NOTE ---
DATE: 06/22/2019 SUBJECTIVE: Patient seems to be doing okay. He tolerated his clears. He had a little bit of abdominal pain with the clears, but otherwise is doing okay. OBJECTIVE: Vital Signs: Patient is currently afebrile. His vital signs are stable. General: No acute distress. HEENT: Normocephalic, atraumatic. Pupils equal, round, reactive to light. Mucous membranes moist. Oropharynx benign. Neck: Supple. Trachea midline. Cardiovascular: Regular rate and rhythm. Lungs: Grossly clear. Abdomen: Soft, nontender at this time. Extremities: Moves all extremities. Neurologic: Grossly intact. Skin: No signs of jaundice. Vascular: All extremities perfused. LABORATORY DATA: Currently pending from this morning but reviewed labs from today. IMAGING: Abdominal film pending for this morning also. ASSESSMENT AND PLAN: A 63-year-old gentleman with recurrent partial small-bowel obstruction. Recurrent partial small-bowel obstruction. At this time, contrast has moved through. He tolerated his clear liquid diet. We will advance him to a regular diet and see how he does. cc: Kip Mcgee MD
[2019-06-22] MEDS: NS 1,000 ML IV SCH ×3 (06:11→21:12)
--- NOTE | 2019-06-22 07:29 | Diag Imaging Result Doc PS360 ---
EXAM: KUB ABDOMEN 06/22/2019 HISTORY: SBO TECHNIQUE: KUB COMMENT: There is retained barium throughout the colon. This was presumably from the small bowel series on 06/20/2019. There is some solid stool in the rectum. Consideration should be given to the administration of laxatives. IMPRESSION: Retained barium in the colon. This may promote constipation. No evidence of small bowel obstruction. Electronically signed by Marcio Gamble 06/22/2019 7:26 AM
[2019-06-22] MEDS: MILK OF MAGNESIA PO SCH ×2 (09:07→21:11)
--- NOTE | 2019-06-22 13:21 | PROGRESS NOTE ---
DATE: 06/22/2019 SUBJECTIVE: This morning, Mr. Polo refers to be feeling a whole lot better. No pain and he said he has had multiple bowel movements. Mr. Polo also refers that he has not had any pain medication since this morning, and he feels well. A KUB early this morning continues to show retained barium in the colon, which may promote constipation. OBJECTIVE: Vital signs: Blood pressure is 102/56, pulse of 60, respiration is 16, temperature is 98.1 degrees. The patient is saturating 94% on room air. General: Mr. Polo is a 63-year-old very cooperative male. He is in bed. In no distress. Mucosa is pink and moist. Anicteric. Acyanotic. Neck: Supple. Chest: Good air entry bilaterally. No crepitations. No rhonchi. Cardiovascular: Regular rate and rhythm. Abdomen: Soft, minimally tender in the epigastrium but no rebound or guarding. Bowel sounds are present. Extremities: No pedal edema. There is a left AKA. Central Nervous System: Patient is awake, alert, and oriented. INTAKE AND OUTPUT: There is documented 1 bowel movement today. He is tolerating his meals and his been advanced to regular this morning. ASSESSMENT: 1. Recurrent partial small bowel obstructions. 2. Constipation improved. 3. Diabetes mellitus. 4. Reactive leukocytosis. 5. Status post left [id number] amputation noted. PLAN: In general, I think Mr. Polo is doing a lot better. He has been started on a regular diet today. We are going to also restart him back on his home medications. We are going to observe him overnight and make sure he is tolerating his diet and that he is in no more pain and hopefully get him home tomorrow. cc: Carlos Monsiavis MD
[2019-06-22] MEDS ORDERED: SEROQUEL PO SCH (21:00)
[2019-06-22] MEDS: XANAX PO SCH (21:11)
[2019-06-23] MEDS ORDERED: PRILOSEC PO SCH (07:00)
--- NOTE | 2019-06-23 07:13 | GENERAL SURGERY PROGRESS NOTE ---
DATE: 06/23/2019 SUBJECTIVE: Patient seems to be doing okay. He tolerated his regular diet. OBJECTIVE: Vital Signs: Patient is currently afebrile. His vital signs stable. General: No acute distress. HEENT: Normocephalic, atraumatic. Pupils equal, round, reactive to light. Mucous membranes moist. Oropharynx benign. Neck: Supple. Trachea midline. Cardiovascular: Regular rate and rhythm. Lungs: Grossly clear. Abdomen: Soft, nontender, nondistended. Extremities: Moves all extremities. Neurologic: Grossly intact. Skin: No signs of jaundice. Vascular: All extremities perfused. LABORATORY DATA: None. IMAGING: Abdominal film from yesterday showed some barium in the colon but otherwise no signs of bowel obstruction. ASSESSMENT AND PLAN: A 63-year-old gentleman with resolving recurrent small-bowel obstruction. Resolving recurrent partial small-bowel obstruction. At this time, we will continue to monitor him. He may need to take MiraLAX when he goes home, but I think he is close to being discharged. We will defer to the Hospitalist. No immediate plans for surgical intervention. cc: Kip Mcgee MD
[2019-06-23] MEDS: XANAX PO SCH (10:00)
[2019-06-23] MEDS: MILK OF MAGNESIA PO SCH (10:00)
[2019-06-23 13:42] VITALS: BP 144/68
--- NOTE | 2019-06-24 07:21 | DISCHARGE SUMMARY ---
ADMISSION DATE: 06/19/2019 DISCHARGE DATE: 06/23/2019 DISPOSITION: Home. FOLLOW-UP: 1. Dr. Guerrero. 2. Dr. Mcgee CONSULTATION DURING ADMISSION: Surgery was consulted. Patient was seen by Dr. Mcgee. INVASIVE PROCEDURE DONE DURING ADMISSION: None. IMAGING STUDIES OF SIGNIFICANCE: 1. KUB showed nonspecific abdomen. 2. A CT scan of the abdomen and pelvis did show fluid-filled loops of small bowel with distention. There is a suspicion for partial small bowel obstruction. 3. Small bowel series was done which showed unremarkable small bowel follow-through. 4. Followup KUB did show retained barium in the colon. Constipation was suggested. ADMISSION DIAGNOSES: 1. Partial small bowel obstruction. 2. Nausea. 3. Leukocytosis. 4. Diabetes. DIAGNOSES AT TIME OF DISCHARGE: 1. Recurrent partial small bowel obstruction. 2. Constipation. 3. Diabetes mellitus. 4. Reactive leukocytosis. 5. Status post left above knee amputation. PRESENTING COMPLAINT: Abdominal pain. HISTORY OF PRESENT COMPLAINT: Mr. Polo is a 63-year-old male who is known to have recurrent abdominal pain due to partial small bowel obstruction, came to the emergency department because of abdominal pain. Initial imaging studies did reveal suspicion of small-bowel obstruction Mr. Polo was subsequently admitted for further medical care. HOSPITAL COURSE: During the hospital course, Mr. Polo was initially kept NPO and was adequately fluid resuscitated, and pain was managed. Surgery was consulted. Patient was seen by Dr. Mcgee. Mr. Polo denied to wanting to have an NG tube. Very gradually, the partial small bowel obstruction seems to be improving. A small-bowel follow-through x-ray was done which came back negative. He was placed on bowel regimen for constipation which improved it. This morning he refers to be feeling a whole lot better. He was started yesterday on regular diet and he seems to have tolerated this without any problem. He has been evaluated by surgery today. They are okay with the patient being discharged. Mr. Polo will be followed up by Dr. Mcgee. He did mention that he will need a prescription for his home medications, which would have been the Xanax because he would not be able to see Dr. Guerrero until about 2 weeks from now. I did mention to him that he will need to call so that Dr. Guerrero can send him a prescription, and that I would not give him a prescription for benzo, which he did understand. We think Mr. Polo is clinically stable for discharge this morning. All the discharge instructions have been discussed with him. He voiced understanding. At the time of the discharge, his blood pressure is 144/68, pulse of 75, respirations 18, and temperature 98.1 degrees. Physical exam is fairly unremarkable. All the discharge instructions have been discussed with him. TIME SPENT FOR DISCHARGE: 36 minutes. cc: MD Kip Minaya MD Dr. Awoniyi
== END 2019-06-23 16:01 | disposition home health service (06) | DRG 390 ==
LOC: ED 09:00 → 4N 13:32
PROVIDERS: ATTEND Internal Medicine

== ENCOUNTER 2019-06-29 16:50 | Inpatient (IN) ==
[2019-06-29] MEDS ORDERED: ATIVAN IV ONE ×2 (17:24→20:07)
[2019-06-29] MEDS ORDERED: NS 1,000 ML IV ONE (17:24)
[2019-06-29] MEDS ORDERED: M.V.I.-12 10 ML, FOLIC ACID 1 MG, MAGNESIUM SULFATE 1 GM, THIAMINE 100 MG in NS 1,000 ML IV ONE (17:24)
[2019-06-29] MEDS ORDERED: LIBRIUM PO ONE (17:24)
[2019-06-29] MEDS ORDERED: CATAPRES-TTS-1 TD ONE (17:24)
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
--- NOTE | 2019-06-29 17:55 | EKG Report ---
Test Performed on : 06/29/2019 5:53:59 PM Test Reason : shaking Blood Pressure : / mmHG Vent. Rate : 096 BPM Atrial Rate : 096 BPM P-R Int : 134 ms QRS Dur : 068 ms QT Int : 326 ms P-R-T Axes : 047 054 014 degrees QTc Int : 411 ms Normal sinus rhythm. Possible Left atrial enlargement Borderline ECG When compared with ECG of 12-JUN-2019 04:44, (Unconfirmed) No significant change was found Unconfirmed Result
[2019-06-29 18:01] LABS: BASO# 0.03 X1000 (0.0-0.2); BASO% 0.2 % (0.0-0.8); EOS# 0.01 X1000 (0.0-0.7); EOS% 0.1 % (0.0-10.0); HEMATOCRIT 47.4 % (42.0-52.0); HEMOGLOBIN 16.4 g/dL (14.0-18.0); IMM GRAN% 0.5 % (0.0-0.5); MCH 31.1 PG (27-31); MCHC 34.6 g/dL (33-37); MCV 89.9 FL (81-99); MONO# 1.67 X1000 (0.11-0.59); MONO% 9.2 % (1.7-9.3); MPV 10.3 FL (7.4-10.4); NEUT# 13.34 X1000 (1.4-6.5); PLT 640 X1000 (130-400); RBC 5.27 XMIL (4.7-6.1); RDW 14.6 % (11.5-14.5); WBC 18.25 X1000 (4.8-10.8)
--- NOTE | 2019-06-29 18:10 | ED EKG INTERP ---
This chart was entered by Ashlee Grubbs Scribe, acting as scribe for Amor Walker MD. EKG Interpretation - EKG Time of EKG reading by physician:: 18:08 EKG Read and Signed by:: Amor Walker EKG Interpretation (*Must complete 3 of following elements*): Abnormal (borderline, possible left atrial enlargement) Rate: 96 Rhythm: NSR QRS: poor R wave progression ST Wave: normal Attestation - Physician/ TIMMY Attestation Patient care was provided by Advanced Practice Provider:: No The physician spent face to face time with patient:: Yes Advanced Practice Provider documentation review:: Supervising physician onsite and consulted in the evaluation and care of this patient. The physician did have a face to face encounter with the patient. This chart was documented by the indicated scribe, (Ashlee Grubbs Scribe) and accurately reflects the services I performed and decisions made by , Amor Walker MD, as attested by the provider's signature.
[2019-06-29 18:14] LABS: ACETONE SERUM NEGATIVE (NEGATIVE)
--- NOTE | 2019-06-29 18:17 | Diag Imaging Result Doc PS360 ---
EXAM: CHEST-PORTABLE - 06/29/2019 HISTORY: AMS TECHNIQUE: Portable chest COMPARISON: 06/19/2019 FINDINGS: Heart size is normal. There is tortuosity of the thoracic aorta similar to prior. There is scarring at the left base. There are no acute changes identified. IMPRESSION: Scarring at left base. No acute changes. Electronically signed by Troy Sarkar 06/29/2019 6:15 PM
[2019-06-29 18:22] LABS: ACETAMINOPHEN < 1.2 ug/mL (10-30); AGAP 17; ALBUMIN 4.8 g/dL (3.5-5.0); ALKALINE PHOSPHATASE 113 U/L (32-122); BUN 20 mg/dL (8-22); CALCIUM 9.7 mg/dL (8.8-10.2); CHLORIDE 90 mmol/L (98-107); CK TOTAL 47 U/L (24-204); COSMO 269; CREATININE 0.7 mg/dL (0.7-1.2); ESTIMATED GFR > 60; GLUCOSE 107 mg/dL (70-104); GOT 17 U/L (10-34); GPT 38 U/L (10-44); LIPASE 51 U/L (13-60); MAGNESIUM 2.2 mg/dL (1.5-2.7); SALICYLATES < 3.00 mg/dL (3-10); SODIUM 133 mmol/L (136-145); TCO2 26 mmol/L (25-35); TOTAL PROTEIN 8.1 g/dL (6.3-8.3)
[2019-06-29 19:50] LABS: BILIRUBIN URINE NEGATIVE (NEGATIVE); BLOOD URINE NEGATIVE (NEGATIVE); CLARITY CLEAR (CLEAR); COLOR YELLOW; GLUCOSE URINE NEGATIVE (NEGATIVE); KETONE URINE TRACE mg/dL (NEGATIVE); LEUKOCYTES URINE NEGATIVE (NEGATIVE); NITRITE URINE NEGATIVE (NEGATIVE); PROTEIN URINE NEGATIVE (NEGATIVE); UROBILINOGEN URINE NORMAL
[2019-06-29 19:54] LABS: URINE BACTERIA 1+ /HFP; URINE EPITHELIAL CELLS <10 /HPF (<10); URINE RBC <10 /HPF (<10); URINE SOURCE CLEAN CATCH; URINE WBC <10 /HPF (<10)
[2019-06-29 20:00] LABS: UR AMPHETAMINES QUAL NONE DETECTED (NONE DETECT); UR BARBITUATES QUAL NONE DETECTED (NONE DETECT); UR BENZODIAZEPIN QUAL PRESUMPTIVE POSITIVE (NONE DETECT); UR CANNABINOIDS QUAL NONE DETECTED (NONE DETECT); UR COCAINE QUAL NONE DETECTED (NONE DETECT); UR METHADONE QUAL NONE DETECTED (NONE DETECT); UR METHAMPHETAMINE QUAL NONE DETECTED (NONE DETECT); UR OPIATES QUAL NONE DETECTED (NONE DETECT); UR OXYCODONE QUAL NONE DETECTED (NONE DETECT); UR PCP QUAL NONE DETECTED (NONE DETECT); UR PROPOXYPHENE QUAL NONE DETECTED (NONE DETECT); UR TCA QUAL NONE DETECTED (NONE DETECT)
[2019-06-29] MEDS ORDERED: ATIVAN IV PRN (21:32)
[2019-06-29] MEDS: ATIVAN IV PRN (23:30)
[2019-06-30] MEDS: ATIVAN IV PRN (06:42)
[2019-06-30] MEDS ORDERED: XANAX PO SCH (09:00)
[2019-06-30] MEDS ORDERED: NEURONTIN PO SCH (09:00)
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
[2019-06-30] MEDS: LYRICA PO SCH ×2 (09:30→21:16)
[2019-06-30] MEDS: MILK OF MAGNESIA PO SCH ×2 (09:30→21:17)
[2019-06-30] MEDS: PRILOSEC PO SCH (09:31)
[2019-06-30 09:55] LABS: BASO# 0.07 X1000 (0.0-0.2); BASO% 0.5 % (0.0-0.8); EOS# 0.04 X1000 (0.0-0.7); EOS% 0.3 % (0.0-10.0); HEMATOCRIT 39.6 % (42.0-52.0); HEMOGLOBIN 13.5 g/dL (14.0-18.0); IMM GRAN# 0.04 X1000 (0.0-0.04); IMM GRAN% 0.3 % (0.0-0.5); LYMPH# 1.92 X1000 (1.2-3.4); LYMPH% 14.4 % (20.5-51.1); MCH 31.3 PG (27-31); MCHC 34.1 g/dL (33-37); MCV 91.9 FL (81-99); MONO# 1.29 X1000 (0.11-0.59); MONO% 9.7 % (1.7-9.3); NEUT# 9.98 X1000 (1.4-6.5); NEUT% 74.8 % (42.2-75.2); PLT 521 X1000 (130-400); RBC 4.31 XMIL (4.7-6.1); RDW 14.7 % (11.5-14.5); WBC 13.34 X1000 (4.8-10.8)
[2019-06-30 09:56] LABS: AGAP 11; BUN 13 mg/dL (8-22); CALCIUM 7.7 mg/dL (8.8-10.2); CHLORIDE 97 mmol/L (98-107); COSMO 269; CREATININE 0.5 mg/dL (0.7-1.2); ESTIMATED GFR > 60; GLUCOSE 205 mg/dL (70-104); POTASSIUM 3.9 mmol/L (3.5-5.1); SODIUM 131 mmol/L (136-145); TCO2 23 mmol/L (25-35)
[2019-06-30] MEDS ORDERED: TYLENOL PO PRN (15:21)
[2019-06-30] MEDS ORDERED: ZOFRAN IV PRN (15:21)
[2019-06-30 15:56] LABS: BE 1.8 mmoll (-3.0-3.0); BLOOD TYPE ARTERIAL; HCO3-(ACT) 26.2 mmoll (20.0-26.0); METHB 0.6 % (0.0-1.5); O2HB 94.3 % (95.0-99.0); PCO2(98.6) 37 mmHg (35-45); PO2(98.6) 69 mmHg (60-100); SAMPLE BLOOD; SAO2 97.8 % (95.0-100.0); THB 14.3 g/dL (11.5-17.4); pH(98.6) 7.45 (7.35-7.45)
[2019-06-30 15:59] LABS: ALLEN TEST YES; MODALITY ROOM AIR
--- NOTE | 2019-06-30 16:18 | Diag Imaging Result Doc PS360 ---
EXAM: CT HEAD W/O CONTRAST INDICATION: encephalopathy TECHNIQUE: This exam was performed using automated exposure control, adjustment of mA or kV according to patient size, and/or use of iterative reconstruction technique. COMPARISON: 06/09/2016 FINDINGS: There is no definite acute infarct given the limited sensitivity of CT versus MRI. There is no discrete intracranial mass, mass effect, or intracranial hemorrhage. The surrounding soft tissues and bony structures are essentially unremarkable. IMPRESSION: No evidence of acute intracranial pathology. Electronically signed by Matt Lopez 06/30/2019 4:16 PM
--- NOTE | 2019-06-30 16:26 | PROGRESS NOTE ---
DATE: 06/30/2019 SUBJECTIVE: Patient has no major complaints. OBJECTIVE: Blood pressure is 137/85, heart rate of 90, respiratory 18, temperature 97.9, 97% on room air.Cardiac: Regular rate and rhythm. Pulmonary: Bilateral breath sounds, clear to auscultation. GI: Soft, nontender, nondistended. Bowel sounds are positive. LABORATORY DATA: 1. White count 13.39, platelets 531,000 sodium 131. ASSESSMENT/PLAN: 1. Encephalopathy - Resolving, we will continue treatment. 2. Hypertension is stable. Continue regular medications and follow. 3. Benzodiazepine withdrawal. We will continue to follow closely. I do think we will check a head CT, ABG, make sure there is nothing going on there. 4. I am going to stop his Neurontin since he is already on Lyrica just because he cannot stay awake. We talked to him just for a minute and he falls right back asleep. DISPOSITION: Pending so we will continue to follow and monitor closely. This is a [id number] encounter note with Sophie Medrano. cc: Fredis Valiente MD [facility]
[2019-06-30] MEDS: POTASSIUM CHLORIDE 20 MEQ, MAGNESIUM SULFATE 2 GM, THIAMINE 100 MG, FOLIC ACID 1 MG, M.... IV SCH ×6 (17:33)
[2019-06-30] MEDS ORDERED: SEROQUEL PO SCH (21:00)
[2019-06-30] MEDS: XANAX PO SCH (21:17)
[2019-07-01 05:42] LABS: BASO# 0.08 X1000 (0.0-0.2); BASO% 0.7 % (0.0-0.8); EOS# 0.18 X1000 (0.0-0.7); EOS% 1.5 % (0.0-10.0); HEMATOCRIT 38.3 % (42.0-52.0); HEMOGLOBIN 12.5 g/dL (14.0-18.0); IMM GRAN# 0.04 X1000 (0.0-0.04); IMM GRAN% 0.3 % (0.0-0.5); LYMPH# 3.73 X1000 (1.2-3.4); LYMPH% 31.2 % (20.5-51.1); MCH 30.2 PG (27-31); MCHC 32.6 g/dL (33-37); MCV 92.5 FL (81-99); MONO# 1.66 X1000 (0.11-0.59); MONO% 13.9 % (1.7-9.3); MPV 10.6 FL (7.4-10.4); NEUT# 6.28 X1000 (1.4-6.5); NEUT% 52.4 % (42.2-75.2); PLT 523 X1000 (130-400); RBC 4.14 XMIL (4.7-6.1); RDW 14.9 % (11.5-14.5); WBC 11.97 X1000 (4.8-10.8)
[2019-07-01 05:50] LABS: AGAP 7; BUN 9 mg/dL (8-22); CALCIUM 7.5 mg/dL (8.8-10.2); CHLORIDE 103 mmol/L (98-107); COSMO 275; CREATININE 0.5 mg/dL (0.7-1.2); ESTIMATED GFR > 60; GLUCOSE 149 mg/dL (70-104); POTASSIUM 3.7 mmol/L (3.5-5.1); SODIUM 137 mmol/L (136-145); TCO2 26 mmol/L (25-35)
[2019-07-01] MEDS: PRILOSEC PO SCH (06:14)
[2019-07-01] MEDS: LYRICA PO SCH (10:08)
[2019-07-01] MEDS: MILK OF MAGNESIA PO SCH (10:08)
[2019-07-01] MEDS: XANAX PO SCH (10:09)
[2019-07-01 14:52] VITALS: BP 137/82
[2019-07-01] MEDS: ATIVAN IV PRN (15:09)
[2019-07-01] MEDS: POTASSIUM CHLORIDE 20 MEQ, MAGNESIUM SULFATE 2 GM, THIAMINE 100 MG, FOLIC ACID 1 MG, M.... IV SCH ×6 (17:00)
--- NOTE | 2019-07-02 14:42 | DISCHARGE SUMMARY ---
ADMISSION DATE: 06/29/2019 DISCHARGE DATE: 07/01/2019 PRIMARY CARE PHYSICIAN: Dr. Antolin Guerrero ADMISSION DIAGNOSES: 1. Possible benzodiazepine withdrawal from overuse and then ran out. 2. Leukocytosis most likely reactive. 3. Hypertension history. 4. Auditory visual hallucinations secondary to benzodiazepine withdrawal that appears to be resolved. DISCHARGE DIAGNOSES: 1. Benzodiazepine withdrawal, improved. 2. Hypertension. 3. Auditory visual hallucinations, resolved secondary to the benzodiazepine withdrawal. 4. Leukocytosis resolved. SUMMARY OF FINDINGS: This is a 63-year-old male who presented to the ER with his daughter after he was having increased anxiety, tremors, insomnia, and hallucinations that were both auditory and visual. Stated they had started 5 days previous and progressively worsened. According to the [place] PDMP, he had 60 tablets of Xanax filled on 05/31/2019 and was to take 2 mg p.o. b.i.d. He then had 14 Xanax filled on 06/17/2019. So, there was some discrepancy there and maybe some over usage and he was taking too many and then running out and going into withdrawals, so he was admitted, hydrated, placed him back on his Xanax 2 mg p.o. b.i.d. He has improved and it is now felt that he can safely be discharged home. DISCHARGE MEDICATIONS: Xanax 2 mg p.o. b.i.d. #8 with no refills, gabapentin 800 mg p.o. t.i.d., quetiapine fumarate 200 mg p.o. at bedtime, Lyrica 75 mg p.o. b.i.d., omeprazole 20 mg p.o. daily, milk of magnesia 30 mL p.o. b.i.d. FOLLOWUP: He needs to follow up with his primary care physician in the next 1 to 2 weeks. DISCHARGE INSTRUCTIONS: All discharge instructions have been reviewed and the patient verbalizes understanding. TIME SPENT AT DISCHARGE: This a 35-minute discharge. Dictated by MARILYN Kelly for Fredis Valiente MD cc: MARILYN Kelly MD Moses Awoniyi, MD
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
== END 2019-07-01 18:05 | disposition home or self-care (01) | DRG 897 ==
LOC: P.ED 16:50 → P.MEDSURG 22:18
PROVIDERS: ATTEND Internal Medicine

== ENCOUNTER 2019-08-09 22:50 | Inpatient (IN) ==
[2019-08-09] MEDS ORDERED: NARCAN ONE (23:11)
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
[2019-08-09] MEDS ORDERED: NS 1,000 ML IV ONE (23:24)
[2019-08-09] MEDS ORDERED: NARCAN IV ONE (23:24)
[2019-08-09 23:46] LABS: ALLEN TEST YES; BE 0.7 mmoll (-3.0-3.0); BLOOD TYPE ARTERIAL; HCO3-(ACT) 25.3 mmoll (20.0-26.0); METHB 1.3 % (0.0-1.5); O2(CT) 19.8 mL/dL (15.0-23.0); O2HB 90.7 % (95.0-99.0); PCO2(98.6) 36 mmHg (35-45); PO2(98.6) 58 mmHg (60-100); SAMPLE BLOOD; SAO2 93.4 % (95.0-100.0); THB 15.6 g/dL (11.5-17.4); pH(98.6) 7.44 (7.35-7.45)
[2019-08-09 23:47] LABS: MODALITY CANNULA
[2019-08-09 23:56] LABS: BASO# 0.07 X1000 (0.0-0.2); BASO% 0.3 % (0.0-0.8); EOS# 0.01 X1000 (0.0-0.7); HEMATOCRIT 49.9 % (42.0-52.0); HEMOGLOBIN 15.4 g/dL (14.0-18.0); IMM GRAN# 0.44 X1000 (0.0-0.04); IMM GRAN% 1.7 % (0.0-0.5); LYMPH# 3.03 X1000 (1.2-3.4); LYMPH% 11.4 % (20.5-51.1); MCH 31.4 PG (27-31); MCHC 30.9 g/dL (33-37); MCV 101.6 FL (81-99); MONO# 2.98 X1000 (0.11-0.59); MONO% 11.2 % (1.7-9.3); MPV 10.3 FL (7.4-10.4); NEUT% 75.4 % (42.2-75.2); PLT 579 X1000 (130-400); RBC 4.91 XMIL (4.7-6.1); WBC 26.63 X1000 (4.8-10.8)
[2019-08-10 00:20] LABS: URINE SOURCE CATH
[2019-08-10 00:29] LABS: BILIRUBIN URINE NEGATIVE (NEGATIVE); BLOOD URINE TRACE (NEGATIVE); COLOR STRAW; GLUCOSE URINE NEGATIVE (NEGATIVE); KETONE URINE NEGATIVE (NEGATIVE); LEUKOCYTES URINE NEGATIVE (NEGATIVE); NITRITE URINE NEGATIVE (NEGATIVE); PROTEIN URINE TRACE mg/dL (NEGATIVE); SP GRAVITY URINE 1.006; TURBIDITY URINE CLEAR (CLEAR); UR EPITHELIAL CELLS <10 /HPF (<10); URINE BACTERIA NEGATIVE /HPF; URINE RBC <10 /HPF (<10); URINE WBC <10 /HPF (<10); UROBILINOGEN URINE NORMAL (NORMAL)
[2019-08-10] MEDS ORDERED: NARCAN IV ONE (00:29)
[2019-08-10] MEDS ORDERED: NS 1,000 ML IV ONE ×3 (00:30→03:23)
[2019-08-10] MEDS ORDERED: LOPRESSOR IV ONE (00:30)
[2019-08-10 00:31] LABS: BASO# 0.05 X1000 (0.0-0.2); BASO% 0.2 % (0.0-0.8); HEMATOCRIT 49.3 % (42.0-52.0); HEMOGLOBIN 15.2 g/dL (14.0-18.0); IMM GRAN# 0.38 X1000 (0.0-0.04); IMM GRAN% 1.6 % (0.0-0.5); LYMPH# 2.15 X1000 (1.2-3.4); MCH 31.1 PG (27-31); MCHC 30.8 g/dL (33-37); MONO# 2.04 X1000 (0.11-0.59); MONO% 8.5 % (1.7-9.3); MPV 9.9 FL (7.4-10.4); NEUT% 80.7 % (42.2-75.2); PLT 572 X1000 (130-400); RBC 4.88 XMIL (4.7-6.1); RDW 16.8 % (11.5-14.5); WBC 23.92 X1000 (4.8-10.8)
[2019-08-10] MEDS ORDERED: VANCOMYCIN 1 GM/NS 1 GM/250 ML IVPB IV ONE (00:48)
[2019-08-10] MEDS ORDERED: ZOSYN 4.5 GM in NS 100 ML IV SCH (01:00)
[2019-08-10 01:04] LABS: UR AMPHETAMINES QUAL NONE DETECTED (NONE DETECT); UR BARBITUATES QUAL NONE DETECTED (NONE DETECT); UR BENZODIAZEPIN QUAL PRESUMPTIVE POSITIVE (NONE DETECT); UR CANNABINOIDS QUAL NONE DETECTED (NONE DETECT); UR COCAINE QUAL NONE DETECTED (NONE DETECT); UR METHADONE QUAL PRESUMPTIVE POSITIVE (NONE DETECT); UR OPIATES QUAL NONE DETECTED (NONE DETECT); UR OXYCODONE QUAL NONE DETECTED (NONE DETECT); UR PCP QUAL NONE DETECTED (NONE DETECT)
[2019-08-10 01:04] LABS: ACETAMINOPHEN < 1.2 ug/mL (10-30); AGAP 22; ALB/GLOB RATIO 1.1; ALBUMIN 3.7 g/dL (3.5-5.0); ALKALINE PHOSPHATASE 180 U/L (32-122); BUN 18 mg/dL (8-22); CALCIUM 8.7 mg/dL (8.8-10.2); CHLORIDE 102 mmol/L (98-107); CK PROFILE 107 U/L (24-204); COSMO 286; CREATININE 1.6 mg/dL (0.7-1.2); ESTIMATED GFR 44; GLUCOSE 149 mg/dL (70-104); GOT 37 U/L (10-34); GPT 44 U/L (10-44); SODIUM 141 mmol/L (136-145); TCO2 17 mmol/L (25-35); TOTAL BILIRUBIN < 0.15 mg/dL (0.20-1.00)
[2019-08-10 01:17] LABS: INR 1.11; PROTIME 14.4 Seconds (11.0-16.0)
[2019-08-10] MEDS: NARCAN 2 MG in NS 500 ML IV SCH ×3 (01:43→03:39)
[2019-08-10] MEDS ORDERED: ZOSYN 4.5 GM in NS 100 ML IV ONE (02:00)
[2019-08-10] MEDS ORDERED: NS 1,000 ML ONE (02:07)
[2019-08-10] MEDS ORDERED: LEVOPHED 8 MG in D5 1/2 NS 250 ML IV SCH (04:18)
[2019-08-10] MEDS ORDERED: ZOFRAN IV PRN (04:18)
[2019-08-10] MEDS ORDERED: VANCOMYCIN IV PER PHARMACY MISC SCH (04:18)
[2019-08-10] MEDS ORDERED: VANCOMYCIN 600 MG in NS 150 ML IV ONE (05:00)
[2019-08-10] MEDS: NS 1,000 ML IV SCH ×4 (05:39→21:56)
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
[2019-08-10 05:51] LABS: ALLEN TEST YES; BE -8.3 mmoll (-3.0-3.0); BLOOD TYPE ARTERIAL; HCO3-(ACT) 18.4 mmoll (20.0-26.0); METHB 0.8 % (0.0-1.5); O2(CT) 19.6 mL/dL (15.0-23.0); PCO2(98.6) 44 mmHg (35-45); PO2(98.6) 130 mmHg (60-100); SAMPLE BLOOD; SAO2 99.4 % (95.0-100.0); THB 14.2 g/dL (11.5-17.4); pH(98.6) 7.24 (7.35-7.45)
[2019-08-10 05:53] LABS: MODALITY CANNULA
[2019-08-10] MEDS: HUMALOG SUBQ SCH ×4 (05:59→20:14)
--- NOTE | 2019-08-10 06:38 | Diag Imaging Result Doc PS360 ---
CT HEAD W/O CONTRAST - 08/09/2019 INDICATION: Altered Mental status COMPARISON: 06/30/2019 FINDINGS: The ventricles and sulci are normal in size and contour. No intracranial mass or hemorrhage. The skull is intact. There is significant sinusitis of the right sphenoid sinus and some ethmoid sinuses. IMPRESSION: Sinusitis. No acute disease. This exam was performed using automated exposure control, adjustment of mA or kV according to patient size, and/or use of iterative reconstruction technique Electronically signed by Howie Hdz 08/10/2019 6:36 AM
[2019-08-10 06:43] LABS: BASO# 0.03 X1000 (0.0-0.2); BASO% 0.1 % (0.0-0.8); HEMATOCRIT 42.5 % (42.0-52.0); HEMOGLOBIN 13.5 g/dL (14.0-18.0); IMM GRAN# 0.16 X1000 (0.0-0.04); IMM GRAN% 0.8 % (0.0-0.5); LYMPH% 9.5 % (20.5-51.1); MCH 31.6 PG (27-31); MCHC 31.8 g/dL (33-37); MCV 99.5 FL (81-99); MPV 10.3 FL (7.4-10.4); NEUT# 16.99 X1000 (1.4-6.5); NEUT% 84.6 % (42.2-75.2); PLT 526 X1000 (130-400); RBC 4.27 XMIL (4.7-6.1); RDW 16.5 % (11.5-14.5); WBC 20.08 X1000 (4.8-10.8)
[2019-08-10 07:01] LABS: LYMPHS 10 % (21-51); MONO 2 % (1-9); SEGS 88 % (42-75)
[2019-08-10 07:26] LABS: ACETAMINOPHEN < 1.2 ug/mL (10-30); AGAP 13; ALB/GLOB RATIO 1.2; ALBUMIN 3.1 g/dL (3.5-5.0); ALKALINE PHOSPHATASE 193 U/L (32-122); BUN 19 mg/dL (8-22); CALCIUM 7.1 mg/dL (8.8-10.2); CHLORIDE 112 mmol/L (98-107); COSMO 290; CREATININE 1.1 mg/dL (0.7-1.2); ESTIMATED GFR > 60; GLUCOSE 154 mg/dL (70-104); GOT 98 U/L (10-34); GPT 89 U/L (10-44); MAGNESIUM 1.7 mg/dL (1.5-2.7); POTASSIUM 4.5 mmol/L (3.5-5.1); SALICYLATES < 3.00 mg/dL (3-10); SODIUM 143 mmol/L (136-145); TCO2 18 mmol/L (25-35); TOTAL BILIRUBIN 0.34 mg/dL (0.20-1.00); TOTAL PROTEIN 5.7 g/dL (6.3-8.3)
--- NOTE | 2019-08-10 07:37 | EKG Report ---
Test Performed on : 08/10/2019 07:18:24 AM Test Reason : repeat Blood Pressure : / mmHG Vent. Rate : 079 BPM Atrial Rate : 079 BPM P-R Int : 142 ms QRS Dur : 082 ms QT Int : 384 ms P-R-T Axes : 056 047 009 degrees QTc Int : 440 ms Normal sinus rhythm. Normal ECG When compared with ECG of 02-JUL-2019 13:59, (Unconfirmed) T wave inversion now evident in Inferior leads Nonspecific T wave abnormality now evident in Anterior leads Confirmed by Monie ALBARRAN, Jaison Jurado ([id number]) on 08/10/2019 1:26:04 PM
--- NOTE | 2019-08-10 07:39 | EKG Report ---
Test Performed on : 08/10/2019 00:21:31 AM Test Reason : Altered Mental Status Blood Pressure : / mmHG Vent. Rate : 132 BPM Atrial Rate : 125 BPM P-R Int : 000 ms QRS Dur : 084 ms QT Int : 314 ms P-R-T Axes : 000 057 -05 degrees QTc Int : 465 ms Atrial fibrillation. with rapid ventricular response. Abnormal QRS-T angle, consider primary T wave abnormality Abnormal ECG No previous ECGs available Unconfirmed Result
--- NOTE | 2019-08-10 07:44 | Diag Imaging Result Doc PS360 ---
EXAM: CHEST-1 VIEW INDICATION: Central line placement TECHNIQUE: One view COMPARISON: 08/09/2019 FINDINGS: There has been interval placement of a right central line. The tip projects over the region of the atrial caval junction. Inspiration is suboptimal. There is no evidence of pneumothorax. There is central vascular crowding likely due to poor inspiration. There is mild linear atelectasis at the mid and lower lung zones. IMPRESSION: Interval placement of right central line as described with no evidence of pneumothorax postplacement. Electronically signed by Matt Lopez 08/10/2019 7:42 AM
--- NOTE | 2019-08-10 07:46 | Diag Imaging Result Doc PS360 ---
EXAM: CHEST-PORTABLE INDICATION: Altered mental status TECHNIQUE: One view COMPARISON: 07/25/2019 FINDINGS: Inspiration is suboptimal. There are small linear densities in the mid and lower lung zones bilaterally likely representing atelectasis versus mild scarring. There is no discrete pleural fluid collection or pneumothorax. The cardiomediastinal silhouette and central vasculature are grossly unremarkable. IMPRESSION: Mild linear atelectasis versus scarring as described with low lung volumes. Electronically signed by Matt Lopez 08/10/2019 7:44 AM
[2019-08-10] MEDS: ZOSYN 3.375 GM in NS 50 ML IV SCH ×3 (09:17→21:57)
--- NOTE | 2019-08-10 10:07 | PROGRESS NOTE ---
DATE: 08/10/2019 SUBJECTIVE: This morning Mr. Polo refers to be doing a lot better, he is more alert and he is more conversational, and he is requesting to eat something. OBJECTIVE: Vital signs: Blood pressure is 105/77, pulse of 78, respirations 16, temperature is 98.2 degrees. The patient is saturating 97% on 4 L. General: Mr. Polo is a 64-year-old gentleman, he is in bed, in no distress. He is slightly drowsy but easily arousable and follows basic commands. Neck: Supple. Chest: Clear to auscultation. No crepitations. No rhonchi. Cardiovascular: Regular rate and rhythm. GI: The abdomen is soft. It is nontender. Bowel sounds present. There is an old midline surgical scar. : Cheng catheter is in place. Extremities: No pedal edema. Left lower extremity has a BKA. SUPERVISOR INSTRUMENT REPAIR: The patient is still slightly drowsy, but is easily arousable, awake, opens the eyes, follows basic commands. LABORATORY DATA: WBC is down to 20.08, hemoglobin is 13.5, platelet count of 526,000. There is 88% of neutrophils, no bands. Chemistry is also reviewed. Creatinine is normalized. Liver enzymes are mildly elevated. Plasma lactate has also normalized. IMAGING STUDIES: A chest x-ray, which was done initially, shows mild linear atelectasis versus scarring. A CT scan of the head only shows sinusitis, no acute disease. CURRENT MEDICATIONS: The patient's current medications have all been reviewed. He is on vancomycin and Zosyn and IV fluids. ASSESSMENT: 1. Unresponsiveness on presentation, presumed to be medication-induced encephalopathy. The patient refers to have used methadone on top of his prescribed Xanax. When asked why he used methadone he said he has been under some stress lately and a friend of his just gave it to him. 2. Sepsis of unclear source. The patient has been started on antibiotics. Cultures are still pending. White cell count is trending down. 3. Hypotension on presentation, presumably due to volume hypovolemic shock and medication- induced hypotension. The patient was fluid resuscitated and did not need any pressor. 4. Presumed Xanax and methadone toxicity, the patient was started on Narcan drip. This morning he looks more alert. We are going to turn if off. 5. Transaminitis, presumably medication-induced liver injury. We are going to continue to trend this. 6. History of major depressive disorder and generalized anxiety disorder. The patient follows up with Dr. Reza. The patient is supposed to be on an SSRI, however, his home medication does not make mention of that. 7. Lactic acidosis, resolved. 8. Acute hypoxemic respiratory failure on presentation. Presumably from mild aspiration pneumonitis when the patient became altered and this has significantly improved. The patient is currently saturating over 95%. PLAN: In general, I think Mr. Polo is doing a lot better, he is more awake and alert and conversational. We are going to turn off the Narcan drip. We are going to start him on a diabetic diet, and continue to monitor his neurological status this morning. If he continues to improve, we will take the Cheng catheter out and then transfer him out of the ICU. cc: Carlos Monsivais MD
[2019-08-11] MEDS: ZOSYN 3.375 GM in NS 50 ML IV SCH ×4 (04:05→21:58)
[2019-08-11] MEDS: HUMALOG SUBQ SCH ×4 (06:04→22:02)
[2019-08-11 07:08] LABS: HEMATOCRIT 37.2 % (42.0-52.0); HEMOGLOBIN 11.4 g/dL (14.0-18.0); MCHC 30.6 g/dL (33-37); MCV 101.1 FL (81-99); RBC 3.68 XMIL (4.7-6.1); RDW 16.9 % (11.5-14.5); WBC 14.98 X1000 (4.8-10.8)
[2019-08-11 07:31] LABS: AGAP 10; ALBUMIN 3.4 g/dL (3.5-5.0); BUN 8 mg/dL (8-22); CALCIUM 7.3 mg/dL (8.8-10.2); CHLORIDE 106 mmol/L (98-107); COSMO 284; CREATININE 0.8 mg/dL (0.7-1.2); ESTIMATED GFR > 60; GLUCOSE 138 mg/dL (70-104); PHOSPHORUS 1.6 mg/dL (2.7-4.5); POTASSIUM 4.2 mmol/L (3.5-5.1); SODIUM 142 mmol/L (136-145); TCO2 26 mmol/L (25-35)
[2019-08-11] MEDS ORDERED: POTASSIUM PHOSPHATE 40 MEQ in NS 250 ML IV ONE (08:47)
[2019-08-11] MEDS: THERA M PLUS PO SCH (10:42)
[2019-08-11] MEDS: VITAMIN B-1 PO SCH (10:42)
[2019-08-11] MEDS: NEUTRA-PHOS PO SCH ×4 (10:46→21:56)
[2019-08-11] MEDS ORDERED: VANCOMYCIN 1,850 MG in NS 500 ML IV SCH (12:00)
[2019-08-11] MEDS: LYRICA PO SCH ×2 (13:05→21:58)
[2019-08-11] MEDS ORDERED: VANCOMYCIN 1,300 MG in NS 250 ML IV SCH (17:00)
--- NOTE | 2019-08-11 18:02 | PROGRESS NOTE ---
DATE: 08/11/2019 SUBJECTIVE: This morning Mr. Polo refers to be doing well. Denies any new complaints. He was a little tearful because he thinks his home situation is getting worse. He is probably going to be on the streets by the next month. OBJECTIVE: Vital signs: Blood pressure is 111/69, pulse of 89, respirations 18, and temperature 98 degrees. General: Mr. Polo is a 64-year-old gentleman. He was in bed in no distress. Mucosa is pink and moist. Anicteric. Acyanotic. Neck: Supple. Chest: Good air entry bilaterally. There was no crepitations. No rhonchi. Cardiovascular: Regular rate and rhythm. No murmurs, no rubs, no gallops. GI: Abdomen was soft and nontender. Bowel sounds present. There is an old midline surgical scar. Extremities: No pedal edema. There is a left lower extremity BKA. GLOVE OPERATOR: Patient was awake, alert, and conversational. LABORATORY DATA: WBC is down to 14.98, hemoglobin 11.4, and platelet count of 459,000. Chemistry is also reviewed and is completely normal. His blood cultures have come back 2/2 positive for gram-positive cocci. ASSESSMENT: 1. Unresponsiveness on presentation presumed to be multifactorial including sedative and opioid medication induced encephalopathy, and possible sepsis as well. 2. Sepsis of unclear source. The patient's blood culture shows gram-positive cocci bacteremia. We will get a CT scan of the chest to rule out any septic pneumonia to the lungs. 3. Hypotension on presentation presumably a combination of hypovolemia, medication induced hypotension and sepsis. Blood pressure has normalized. 4. Methadone and Xanax use and abuse. Patient has been counseled. 5. History of major depressive disorder and generalized anxiety disorder. Patient has been evaluated in the past by Dr. Reza noted. 6. Acute hypoxemic respiratory failure on presentation, presumably aspiration pneumonitis. We will get a CT scan of the chest to get us a better idea about the lungs anatomy. In general, Mr. Polo was admitted yesterday because I understand he was found in the driveway of his neighbor. He was hypotensive. He was altered and he was hypothermic when he came into the hospital. He was initially admitted to the ICU. His mentation gradually got better on the Narcan drip, and his blood pressure also got normalized with fluid resuscitation. His blood culture is now positive for gram-positive cocci. We are pending the I and D. We do not find any obvious source of this so we are going to get a CT scan of the lungs to rule out any pneumonia. We will also get an echocardiogram to rule out endocarditis. We have consulted ID to evaluate the patient. Mr. Polo is currently on Zosyn and vancomycin. Social issues. Mr. Polo seems to have a lot of other social issues going on especially regarding his discharge planning. It appears that he is being evicted in his current home so social work is looking into that. cc: Carlos Monsivais MD MTDD
[2019-08-11] MEDS ORDERED: DEFINITY ONE (18:30)
[2019-08-11] MEDS: XANAX PO SCH (21:57)
[2019-08-11] MEDS: NS 1,000 ML IV SCH (22:02)
[2019-08-12] MEDS: NS 1,000 ML IV SCH ×4 (05:22→22:19)
[2019-08-12] MEDS: ZOSYN 3.375 GM in NS 50 ML IV SCH (05:22)
[2019-08-12] MEDS: HUMALOG SUBQ SCH ×4 (06:28→22:21)
--- NOTE | 2019-08-12 08:04 | Diag Imaging Result Doc PS360 ---
EXAM: CT THORAX W/CONTRAST INDICATION: r/o septic emboli to lungs TECHNIQUE: This exam was performed using automated exposure control, adjustment of mA or kV according to patient size, and/or use of iterative reconstruction technique. COMPARISON: 09/21/2012 FINDINGS: There are no discrete pulmonary artery filling defects. There is no evidence of aortic dissection or aneurysm. There is no cardiomegaly. There are a few small calcified mediastinal lymph nodes indicating prior granulomatous disease. There are other small shotty nonspecific mediastinal and hilar lymph nodes. There is a small right effusion and a trace left effusion. There is adjacent atelectasis at the lung bases. There is also patchy fibrotic change at the peripheries of both lungs. No cavitary lung lesions are appreciated. Limited views of the upper abdomen are essentially unremarkable. There is a subacute fracture of the right fifth rib. IMPRESSION: 1.Small right effusion and trace left effusion and associated atelectasis. 2.Patchy peripheral fibrotic change bilaterally. 3.No pulmonary artery filling defects identified. 4.Other incidental/nonacute findings detailed above. Electronically signed by Matt Lopez 08/12/2019 8:02 AM
[2019-08-12] MEDS: KEFZOL 2 GM/D5W 2 GM/50 ML IVPB IV SCH ×3 (09:12→22:21)
[2019-08-12] MEDS: NEUTRA-PHOS PO SCH ×4 (09:12→22:20)
[2019-08-12] MEDS: XANAX PO SCH ×2 (09:12→22:22)
[2019-08-12] MEDS: LYRICA PO SCH ×3 (09:12→18:13)
[2019-08-12] MEDS: VITAMIN B-1 PO SCH (09:12)
[2019-08-12] MEDS: LEVAQUIN PO SCH (09:12)
[2019-08-12] MEDS: THERA M PLUS PO SCH (09:12)
--- NOTE | 2019-08-12 09:19 | ECHO REPORT ---
ORDER DATE: 08/11/2019 INTERPRETING PHYSICIAN: Dr. Jain CLINICAL INDICATIONS: Bacteremia, suspected endocarditis. M-MODE MEASUREMENTS: Left ventricle end diastole: 5.0 cm. Left ventricle end systole: 2.9 cm. Posterior wall: 0.7 cm. Interventricular septum: 0.7 cm. Left atrium: 3.7 cm. Aortic diameter: 2.8 cm. SUMMARY OF 2-DIMENSIONAL IMAGING: The left ventricular function appears to be grossly normal. This study was difficult. Optison was added to optimize visualization of endocardium. Ejection fraction is in the order of 55%. No wall motion abnormality is present. The right-sided chambers and the left atrium appear to be unremarkable. Mitral valve looks grossly normal. Pulse wave Doppler of mitral inflow shows "normal" E/A ratio. Tissue Doppler of septal and lateral mitral annulus averages 10 cm per second. There is no definite diastolic dysfunction. Pulmonary venous flow shows normal pattern. Pulmonic valve is unremarkable. The tricuspid valve also appears to be grossly unremarkable. The inferior vena cava was not well visualized. Pulmonary pressure is in the order of 28-33 mmHg. Aortic valve appears to be grossly normal. Color flow mapping unremarkable. There is no pericardial effusion, mass and no thrombus. cc: MD Carlos Mora MD
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
--- NOTE | 2019-08-12 17:21 | PROGRESS NOTE ---
DATE: 08/12/2019 SUBJECTIVE: No acute events overnight. No new complaints. The patient is sleepy, but arousable and oriented. OBJECTIVE: Vital Signs: Temperature 97.3 degrees, pulse 78, respiratory rate 18, blood pressure 121/69, and oxygen saturation 100% on 2 L of nasal cannula. HEENT: Head normocephalic. No trauma. PERRLA. Neck: Supple. No JVD. No masses. Central trachea. Cardiovascular: RRR. Abdomen: Soft, nontender, and nondistended. No hepatosplenomegaly. Mid-line scar which is old. Extremities: Left BKA. No edema. Neurological: Sleepy but arousable. Oriented. LABORATORY: Glucose 161. ASSESSMENT AND PLAN: 1. Altered mental status/unresponsive on presentation likely medication related/overdose with opioids, and also urine toxicology showed methadone. This is better. Also, there is a possibility of sepsis induced encephalopathy. She is getting antibiotics. 2. Sepsis of unclear source. This patient has Staphylococcus epidermidis x2 in the blood culture. I will continue with same management for now. I have requested an evaluation by Infectious Disease Department. 3. Hypotension on presentation, probably a combination of hypovolemia, medication induced hypotension and sepsis. Blood pressure seems to be stable. 4. Methadone and Xanax use and abuse. The patient has been counseled. 5. History of major depressive disorder and generalized anxiety disorder, evaluated in the past by Dr. Reza noted. 6. Acute hypoxemic respiratory failure on presentation probably due to aspiration pneumonitis and/or medication induced. CT scan of the chest showed a small right effusion and trace left effusion and associated atelectasis, patchy peripheral fibrotic change bilaterally. cc: Mook Rose MD
[2019-08-13] MEDS: HUMALOG SUBQ SCH ×4 (06:55→21:23)
[2019-08-13] MEDS: KEFZOL 2 GM/D5W 2 GM/50 ML IVPB IV SCH ×3 (06:55→23:07)
[2019-08-13] MEDS: NS 1,000 ML IV SCH ×3 (06:56→23:07)
[2019-08-13 08:13] LABS: BASO# 0.07 X1000 (0.0-0.2); BASO% 0.6 % (0.0-0.8); EOS# 0.22 X1000 (0.0-0.7); EOS% 1.9 % (0.0-10.0); HEMATOCRIT 38.6 % (42.0-52.0); HEMOGLOBIN 12.3 g/dL (14.0-18.0); IMM GRAN# 0.06 X1000 (0.0-0.04); IMM GRAN% 0.5 % (0.0-0.5); LYMPH# 4.66 X1000 (1.2-3.4); LYMPH% 40.8 % (20.5-51.1); MCH 31.2 PG (27-31); MCHC 31.9 g/dL (33-37); MONO% 9.6 % (1.7-9.3); MPV 10.7 FL (7.4-10.4); NEUT# 5.31 X1000 (1.4-6.5); NEUT% 46.6 % (42.2-75.2); PLT 471 X1000 (130-400); RBC 3.94 XMIL (4.7-6.1); RDW 16.3 % (11.5-14.5); WBC 11.42 X1000 (4.8-10.8)
[2019-08-13 08:22] LABS: AGAP 12; ALB/GLOB RATIO 0.8; ALBUMIN 2.5 g/dL (3.5-5.0); ALKALINE PHOSPHATASE 128 U/L (32-122); BUN 5 mg/dL (8-22); CHLORIDE 101 mmol/L (98-107); COSMO 284; CREATININE 0.6 mg/dL (0.7-1.2); ESTIMATED GFR > 60; GLUCOSE 233 mg/dL (70-104); GOT 25 U/L (10-34); GPT 55 U/L (10-44); SODIUM 140 mmol/L (136-145); TCO2 27 mmol/L (25-35); TOTAL BILIRUBIN 0.24 mg/dL (0.20-1.00); TOTAL PROTEIN 5.6 g/dL (6.3-8.3)
[2019-08-13 08:24] LABS: HEMOGLOBIN A1C 6.1 % (4.8-6.0)
[2019-08-13] MEDS: THERA M PLUS PO SCH (10:32)
[2019-08-13] MEDS: NEUTRA-PHOS PO SCH ×4 (10:32→21:24)
[2019-08-13] MEDS: VITAMIN B-1 PO SCH (10:32)
[2019-08-13] MEDS: XANAX PO SCH ×2 (10:32→21:23)
[2019-08-13] MEDS: LEVAQUIN PO SCH (10:32)
[2019-08-13] MEDS: LYRICA PO SCH ×3 (10:33→18:43)
[2019-08-13] MEDS ORDERED: DULCOLAX PR ONE (11:12)
[2019-08-13] MEDS: MIRALAX PO SCH ×2 (12:57→21:24)
--- NOTE | 2019-08-13 13:51 | INFECTIOUS DISEASE PROGRESS NO ---
DATE: 08/13/2019 PRESENT ILLNESS: Mr. Polo is being treated for a Staph epidermidis bacteremia and sinusitis. MEDICATIONS: He is receiving Kefzol 2 g IV every 8 hours and Levaquin 500 mg by mouth daily. PHYSICAL EXAMINATION: Vital Signs: Temperature is 98.4 degrees, pulse rate 73, respiratory rate 15, blood pressure 149/73, O2 saturations 97% on room air. General: This is a chronically ill- appearing, middle-age male. He is lying in bed, currently in no acute distress. HEENT: Atraumatic, normocephalic. Oral mucous membranes are pink and moist. Conjunctivae are pink. Neck: Supple. Trachea is midline. He does have a right intrajugular central line in place. That site is without edema, erythema, or drainage. Cardiovascular: Heart rate is regular. S1, S2 noted. Respiratory: Lung sounds are clear to auscultation bilaterally. No work of breathing is noted. Abdomen: Soft, round and nontender. Bowel sounds are active. Neurologic: He is awake, alert, oriented, and able to move around independently in the bed. Integumentary: Skin is warm and dry. He has a history of left [id number] amputation with a 1+ pretibial edema to the right lower extremity. LABORATORY AND X-RAY: Today his white count is 11.42, hemoglobin 12.3, platelet count 471,000. Creatinine is 0.6, estimated GFR is greater than 60. Total bilirubin is 0.24, AST 25, ALT 55, alkaline phosphatase 128. His blood cultures grew Staph epidermidis in both specimens. A repeat set of blood cultures is preliminary. No imaging reports today. ASSESSMENT AND PLAN: Mr. Polo is being treated for a Staph epidermidis bacteremia. We have yet to get a sterile set of blood cultures but once we do, that will be day 1 of treatment. Unfortunately, because of previous metal in his arm, he will need 6 weeks of treatment for the bacteremia. The plan is for him to have Ancef for 2 weeks and then switch him to oral Keflex to be taken 500 mg every 8 hours and then once he has completed 4 weeks to be on a chronic prophylactic dose of Keflex 500 mg every 12 hours. He is also receiving Levaquin for the sinusitis. At this point, his white count continues to decline, and he is afebrile. These plans have been discussed with and recommended by Dr. Artis. COMORBIDITIES: For Mr. Polo include IV drug use, diabetes mellitus, schizophrenia and medical noncompliance. Dictated by MARILYN Myers for Ravin Artis MD cc: Ravin Artis MD [facility]
--- NOTE | 2019-08-13 14:02 | PROGRESS NOTE ---
DATE: 08/13/2019 SUBJECTIVE: No acute events overnight. No new complaints. The patient has been evaluated by Infectious Disease Department. We obtained a new blood culture yesterday and so far has been negative. The plan is to send him home with IV antibiotics probably at the beginning of the next week or weekend or this weekend, I do believe he has some social issues ongoing especially regarding his discharge planning, social work instructor on board. Dr. Artis had recommended IV antibiotic for 2 weeks and then p.o. treatment for 4 more weeks. OBJECTIVE: Vital Signs: Temperature 98.5 degrees, pulse 83, respiratory rate 20, blood pressure 149/68, oxygen saturation 98 on room air. HEENT: Head normocephalic. No trauma. PERRLA. Neck: Supple. No JVD. No masses. Central trachea. Cardiovascular: RRR. Abdomen: Soft, nontender, nondistended. No hepatosplenomegaly. Midline scar which is old. Extremities: Left BKA. No edema. Neurologic: This patient is alert. He is oriented x3, generalized weakness. LABORATORY: WBC 11.4, hemoglobin 12.3, hematocrit 38.6, platelets 471,000. Sodium 140, potassium 4, chloride 101, bicarbonate 27, BUN 5, creatinine 0.6, glucose 233. Hemoglobin A1c 6.1, calcium 8, AST 25, ALT 55, alkaline phosphatase 128, albumin 2.5. ASSESSMENT AND PLAN: 1. Altered mental status/unresponsive on presentation, likely medication related with overdose with opioids and also methadone, he feels better, also sepsis could be a component for his encephalopathy, is completely resolved. 2. Sepsis of unclear source, this patient had staphylococcal epidermidis x2 in blood culture. Infectious Disease Department already evaluated this patient and he has recommended to treat this patient for 6 weeks but the 1st 2 weeks will be provided by IV antibiotics and then 4 more weeks of p.o. treatment. 3. Hypotension on presentation likely a combination of hypovolemia, medication and sepsis. Blood pressure stable now. 4. Methadone and Xanax use and abuse, this patient has been counseled. We will continue to monitor. 5. History of major depressive disorder and generalized anxiety disorder evaluated in the past by Dr. Reza, noted acute hypoxemic respiratory failure on presentation due to aspiration pneumonitis and/or medication induced. CT of the chest showed a small right effusion and trace left effusion and associated atelectasis, patchy peripheral fibrotic changes bilaterally. cc: Mook Rose MD [facility]
[2019-08-14] MEDS: HUMALOG SUBQ SCH ×4 (06:06→21:02)
[2019-08-14] MEDS: KEFZOL 2 GM/D5W 2 GM/50 ML IVPB IV SCH ×4 (06:08→22:43)
[2019-08-14] MEDS: NS 1,000 ML IV SCH ×3 (06:08→22:43)
[2019-08-14] MEDS: XANAX PO SCH ×2 (09:17→21:03)
[2019-08-14] MEDS: MIRALAX PO SCH ×2 (09:17→21:02)
[2019-08-14] MEDS: LYRICA PO SCH ×3 (09:18→18:13)
[2019-08-14] MEDS: THERA M PLUS PO SCH (09:18)
[2019-08-14] MEDS: LEVAQUIN PO SCH (09:18)
[2019-08-14] MEDS: VITAMIN B-1 PO SCH (09:18)
--- NOTE | 2019-08-14 13:26 | PROGRESS NOTE ---
DATE: 08/14/2019 SUBJECTIVE: No acute events overnight. The plan is to go ahead and treat this patient with IV antibiotics for 2 weeks and then p.o. treatment for 4 more weeks. OBJECTIVE: Vital Signs: Temperature 98 degrees, pulse 69, respiratory rate 16, blood pressure 123/66, oxygen saturation 93 on room air. HEENT: Head normocephalic, no trauma. PERRLA. Neck: Supple. No JVD. No masses. Central trachea. Chest: Clear to auscultation. No wheezing. No rales. Abdomen: Soft, nontender, nondistended. He has a midline scar which is old. Extremities: Left BKA. No edema. Neurological examination: The patient is alert. He is oriented x3. No focal weakness. LABORATORY: No lab work done today. ASSESSMENT AND PLAN: 1. Altered mental status/unresponsive on presentation, due to overdose with opioids and also methadone. He is feeling better. Sepsis could be a component for this encephalopathy, which has completely resolved. 2. Sepsis of unclear source. He has Staphylococcus epidermidis times 2 in blood. Infectious Disease Department already evaluated and treated this patient. They have recommended a total of treatment of 6 weeks, 2 weeks with intravenous antibiotics and then 4 more weeks of oral treatment. 3. Overdose with opioids, methadone, as per #1. 4. Hypotension on presentation, likely a combination of hypovolemia, medication and sepsis, resolved. 5. Methadone and Xanax use and abuse. This patient has been highly advised against drug use. Will continue with daily cessation education. 6. History of major depressive disorder and generalized anxiety disorder. Aware. Evaluated by Dr. Reza before. 7. Hopefully this patient can be discharged at the beginning of the week. He will probably need a PICC line to go home with. He has some social issues ongoing especially regarding his discharge plan. parking worker on board. As per the patient, it looks like he is going to be able to go to his house with his daughter at the beginning of the week. cc: Mook Rose MD
[2019-08-15] MEDS: TYLENOL PO PRN (02:59)
[2019-08-15] MEDS: HUMALOG SUBQ SCH ×4 (06:06→20:28)
[2019-08-15] MEDS: NS 1,000 ML IV SCH ×5 (06:07→22:50)
[2019-08-15 07:25] LABS: BASO# 0.08 X1000 (0.0-0.2); BASO% 0.8 % (0.0-0.8); EOS# 0.42 X1000 (0.0-0.7); EOS% 4.3 % (0.0-10.0); HEMATOCRIT 40.4 % (42.0-52.0); HEMOGLOBIN 12.9 g/dL (14.0-18.0); IMM GRAN# 0.08 X1000 (0.0-0.04); IMM GRAN% 0.8 % (0.0-0.5); LYMPH# 4.18 X1000 (1.2-3.4); LYMPH% 42.9 % (20.5-51.1); MCHC 31.9 g/dL (33-37); MCV 97.1 FL (81-99); MONO# 1.08 X1000 (0.11-0.59); MONO% 11.1 % (1.7-9.3); MPV 10.5 FL (7.4-10.4); NEUT% 40.1 % (42.2-75.2); PLT 466 X1000 (130-400); RBC 4.16 XMIL (4.7-6.1); RDW 16.1 % (11.5-14.5); WBC 9.74 X1000 (4.8-10.8)
[2019-08-15 07:30] LABS: INR 1.04; PROTIME 13.7 Seconds (11.0-16.0)
[2019-08-15 07:31] LABS: PTT 34.8 Seconds (22.3-41.8)
[2019-08-15 07:45] LABS: AGAP 11; BUN 7 mg/dL (8-22); CALCIUM 8.6 mg/dL (8.8-10.2); CHLORIDE 105 mmol/L (98-107); COSMO 281; CREATININE 0.7 mg/dL (0.7-1.2); ESTIMATED GFR > 60; GLUCOSE 99 mg/dL (70-104); SODIUM 142 mmol/L (136-145); TCO2 26 mmol/L (25-35)
[2019-08-15] MEDS: MIRALAX PO SCH ×2 (08:55→20:31)
[2019-08-15] MEDS: XANAX PO SCH ×2 (08:55→20:31)
[2019-08-15] MEDS: LEVAQUIN PO SCH (08:55)
[2019-08-15] MEDS: KEFZOL 2 GM/D5W 2 GM/50 ML IVPB IV SCH ×3 (08:56→23:42)
[2019-08-15] MEDS: LYRICA PO SCH ×3 (08:56→16:36)
[2019-08-15] MEDS: THERA M PLUS PO SCH (08:56)
[2019-08-15] MEDS: VITAMIN B-1 PO SCH (08:56)
--- NOTE | 2019-08-15 10:49 | PROGRESS NOTE ---
DATE: 08/15/2019 SUBJECTIVE: No acute events overnight. OBJECTIVE: Vital Signs: Temperature 97.6 degrees, pulse 76, respiratory rate 16, blood pressure 118/63, oxygen saturation 99 on room air. HEENT: Head normocephalic. No trauma. PERRLA. Neck: Supple. No JVD. No masses. Central trachea. Chest: Clear to auscultation. No wheezing. No rales. Abdomen: Soft, nontender, nondistended. He has a midline scar which is old. Extremities: Left BKA. No edema. Neurological Examination: This patient is alert. He is oriented x3. No focal weakness. Laboratory: WBC 9.7, hemoglobin 12.9, hematocrit 40.4, platelets 466,000. Sodium 142, potassium 5, chloride 105, bicarbonate 26, BUN 7, creatinine 0.7, glucose 99, calcium 8.6. ASSESSMENT AND PLAN: 1. Altered mental status/unresponsive on presentation due to Xanax and methadone use, resolved. Sepsis could be also a component for this encephalopathy, which has completely resolved. 2. Sepsis of unclear source. He has had Staphylococcus epidermidis x2 in blood. Infectious disease department already evaluated this patient and the plan is to give him 2 weeks of intravenous antibiotics followed by 4 weeks of oral treatment. I have requested PT, PTT, INR. Probably, he can get a peripherally inserted central catheter line tomorrow and send him home. The problem is that he has been having some social issues ongoing, especially regarding his discharge plan but as per the patient, apparently he will go to his daughter's home. 3. Overdose with Xanax and methadone, as per #1. 4. Hypotension on presentation, likely a combination of hypovolemia, medication, and sepsis, resolved. 5. Methadone and Xanax use and abuse. This patient has been highly advised against drug use. I will continue with daily cessation education. 6. History of major depressive disorder and generalized anxiety disorder, aware. Evaluated by Dr. Reza before. 7. This patient seems to be stable and I do believe he can be discharged. We need to make sure that this patient is going to a place where he can get the medications. He needs two weeks of intravenous antibiotics and four weeks of oral treatment after getting the intravenous treatment. This has been set up by infectious disease department. winery worker on board. Once they say that he is good to go, probably, he will get a peripherally inserted central catheter line and be discharged. cc: Mook Rose MD
[2019-08-16] MEDS: NS 1,000 ML IV SCH ×3 (05:17→23:07)
[2019-08-16] MEDS: HUMALOG SUBQ SCH ×4 (06:12→21:37)
[2019-08-16] MEDS: KEFZOL 2 GM/D5W 2 GM/50 ML IVPB IV SCH ×3 (09:17→23:10)
[2019-08-16] MEDS: VITAMIN B-1 PO SCH (09:17)
[2019-08-16] MEDS: MIRALAX PO SCH ×2 (09:18→21:40)
[2019-08-16] MEDS: LYRICA PO SCH ×3 (09:18→17:13)
[2019-08-16] MEDS: XANAX PO SCH ×2 (09:18→21:40)
[2019-08-16] MEDS: THERA M PLUS PO SCH (09:18)
[2019-08-16] MEDS: LEVAQUIN PO SCH (09:18)
--- NOTE | 2019-08-16 14:10 | PROGRESS NOTE ---
DATE: 08/16/2019 SUBJECTIVE: Today, Mr. Polo refers to be doing well. Denies any new complaints. Awaiting for adequate discharge planning. OBJECTIVE: Vital Signs: Blood pressure is 117/68, pulse of 79, respirations are 16, temperature is 97.6 degrees. General Examination: Mr. Polo is a 64-year-old, gentleman. He is in bed. No distress. HEENT: Mucosa is pink and moist. Anicteric. Acyanotic. Neck: Supple. There is a right IJ in place. Chest: Clear to auscultation. No crepitations. No rhonchi. Cardiovascular: Regular rate and rhythm. No murmurs, no rubs, no gallops. GI: Abdomen is soft, nontender. There are old midline surgical scars, both supra and infraumbilical. Extremities: No pedal edema. There is a left BKA. STONE RIGGER: The patient is awake, alert, and oriented. Laboratory Data: None for today. Glucose is 154. The patient's current medications have all been reviewed. He is still on Ancef IV and Levaquin. Microbiology Data of Significance: Blood culture did show Staphylococcus epidermidis, which was sensitive to oxacillin. Repeat blood culture has been negative. ASSESSMENT: 1. Unresponsiveness on presentation, resolved. 2. Methicillin-sensitive Staphylococcus aureus bacteremia, presumably from intravenous drug use. The patient is on adequate antimicrobial coverage. Repeat blood cultures have been negative. The patient will need 14 days of antibiotic coverage for the bacteremia from the day he had a negative blood culture. I think today is day 4 of those 14 days therapy. 3. History of methadone and Xanax use and abuse. Patient has been counseled. 4. History of major depressive disorder and generalized anxiety disorder. Patient has been evaluated in the past by Dr. Reza. 5. Hypotension on presentation, resolved. 6. Disposition. Social work came to evaluate the patient while I was there. We are still looking for the ideal discharge plan. Of note, Mr. Polo will need intravenous antimicrobial therapy. However, with a history of drug abuse, it is going to be very concerning to put in a peripherally inserted central catheter line and get him home. We will be waiting for final recommendations from infectious disease. cc: Carlos Monsivais MD
--- NOTE | 2019-08-16 16:42 | INFECTIOUS DISEASE PROGRESS NO ---
DATE: 08/16/2019 PRESENT ILLNESS: The patient is being treated for a Staph epidermidis bacteremia. The patient also has sinusitis. MEDICATIONS: This is day 4 of treatment with Ancef for the patient's bacteremia and also day 4 of Levaquin for the patient's sinusitis. PHYSICAL EXAMINATION: Vital Signs: Temperature is 97.6 degrees, pulse 79, respirations 16, blood pressure is 117/68. General: This is a chronically ill-appearing middle-aged male. He is in no acute distress and he actually is beginning to look better than he did a few days ago. Head/eyes/ears/nose/throat: He can hear my spoken words and see near objects. He does not have any white patches in his mouth. Neck: No pain with movement. Lungs: Clear to auscultation. Cardiovascular: Regular heart rate. Abdomen: Soft and nontender. Neurologic: The patient is alert. Patient is able to move around independently in bed. There is no tremor. He talks in a coherent fashion. Integument: No rash noted. Extremities: The patient has a left above-the- knee amputation. LAB AND X-RAY: CBC shows a white count of 9740, hemoglobin 12.9, platelet count 466,000. Creatinine is 0.7, GFR is greater than 60. ASSESSMENT AND PLAN: The patient has Staph bacteremia, be treating him with Ancef for a total of 2 weeks and then put him on 500 mg of p.o. Keflex every 8 hours for 4 weeks to complete a 6-week treatment course. Following the 6-week course the patient will be put on Keflex 500 mg p.o. every 12 hours indefinitely. The reason for this is that the patient may have hematogenously infected the metal in his right arm. The patient will be treated for 10 to 14 days with Levaquin for his sinusitis. COMORBIDITIES: IV drug abuse, diabetes mellitus, schizophrenia, and medical noncompliance. cc: Ravin Artis MD
[2019-08-16] MEDS: TYLENOL PO PRN (23:07)
[2019-08-17] MEDS: NS 1,000 ML IV SCH ×2 (06:33→16:30)
[2019-08-17] MEDS: HUMALOG SUBQ SCH ×3 (06:33→17:41)
[2019-08-17] MEDS: LEVAQUIN PO SCH (09:54)
[2019-08-17] MEDS: XANAX PO SCH ×2 (09:54→22:56)
[2019-08-17] MEDS: MIRALAX PO SCH (09:54)
[2019-08-17] MEDS: KEFZOL 2 GM/D5W 2 GM/50 ML IVPB IV SCH ×2 (09:54→16:30)
[2019-08-17] MEDS: THERA M PLUS PO SCH (09:54)
[2019-08-17] MEDS: LYRICA PO SCH ×3 (09:54→17:41)
[2019-08-17] MEDS: VITAMIN B-1 PO SCH (09:57)
--- NOTE | 2019-08-17 16:50 | PROGRESS NOTE ---
DATE: 08/17/2019 SUBJECTIVE: This morning Mr. Polo refers to be doing well. Denies any new complaints. OBJECTIVE: Vital signs: Blood pressure is 125/67, pulse of 65, respirations 18, temperature is 98.0 degrees. General: Mr. Polo is a 64-year-old gentleman. He is in bed, no distress. HEENT: Mucosa is pink and moist. Anicteric. Acyanotic. Neck: Supple. Chest: Clear to auscultation. Cardiovascular: Regular rate and rhythm. Abdomen: Soft. Extremities: No pedal edema. There is an old left BKA noted. LABS: No new labs for today. Glucose is 115. ASSESSMENT: 1. Unresponsiveness on presentation secondary to drug-induced encephalopathy. 2. Methicillin-sensitive Staphylococcus aureus bacteremia, presumably from intravenous drug use. Repeat blood cultures have been negative. The patient is on 14 days of treatment with cefazolin; today is day 5. He is left with 9 more days. 3. History of methadone and Xanax use and abuse. Patient has been counseled. 4. History of major depressive disorder and generalized anxiety disorder. Patient has been evaluated in the past by Dr. Reza. 5. Hypotension on presentation due to drug-induced and sepsis, improved. 6. Disposition. Still pending Social Work and Case Management arrangements. cc: Carlos Monsivais MD
[2019-08-18] MEDS: MIRALAX PO SCH ×3 (00:26→21:21)
[2019-08-18] MEDS: HUMALOG SUBQ SCH ×5 (00:26→21:21)
[2019-08-18] MEDS: NS 1,000 ML IV SCH ×4 (00:31→21:21)
[2019-08-18] MEDS: KEFZOL 2 GM/D5W 2 GM/50 ML IVPB IV SCH ×4 (00:31→23:07)
[2019-08-18 07:25] LABS: HEMATOCRIT 41.5 % (42.0-52.0); HEMOGLOBIN 13.7 g/dL (14.0-18.0); MCH 31.7 PG (27-31); MCV 96.1 FL (81-99); MPV 10.5 FL (7.4-10.4); RBC 4.32 XMIL (4.7-6.1); RDW 15.9 % (11.5-14.5); WBC 13.12 X1000 (4.8-10.8)
[2019-08-18 07:43] LABS: AGAP 11; ALBUMIN 3.3 g/dL (3.5-5.0); BUN 9 mg/dL (8-22); CHLORIDE 106 mmol/L (98-107); COSMO 283; CREATININE 0.7 mg/dL (0.7-1.2); ESTIMATED GFR > 60; GLUCOSE 111 mg/dL (70-104); PHOSPHORUS 3.5 mg/dL (2.7-4.5); POTASSIUM 4.5 mmol/L (3.5-5.1); SODIUM 142 mmol/L (136-145); TCO2 25 mmol/L (25-35)
[2019-08-18] MEDS: XANAX PO SCH ×2 (10:12→21:19)
[2019-08-18] MEDS: LYRICA PO SCH ×3 (10:13→18:45)
[2019-08-18] MEDS: THERA M PLUS PO SCH (10:13)
[2019-08-18] MEDS: LEVAQUIN PO SCH (10:13)
[2019-08-18] MEDS: VITAMIN B-1 PO SCH (10:13)
--- NOTE | 2019-08-18 16:16 | PROGRESS NOTE ---
DATE: 08/18/2019 SUBJECTIVE: Today Mr. Polo refers to be doing well. No new complaints. We are still waiting on arrangements for his discharge. OBJECTIVE: Vital signs: Blood pressure is 108/60, pulse of 81, respirations 17, temperature 97.9 degrees. General: Mr. Polo is a 64-year-old gentleman. He is in bed no distress. HEENT: Mucosa is pink and moist. Anicteric. Acyanotic. Neck: Supple. Chest: Clear to auscultation. Cardiovascular: Regular rate and rhythm. Abdomen: Soft, nontender. Bowel sounds present. Extremities: There is a left BKA noted. 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 LABORATORY DATA: CBC is reviewed. WBC is 13.12. Rest of CBC is unremarkable. Chemistry is within normal range. Glucose is 111. ASSESSMENT: 1. Unresponsiveness on presentation secondary to drug and sepsis induced encephalopathy. 2. Methicillin sensitive staphylococcus aureus bacteremia due to IV drug use. Repeat blood cultures negative patient is on cefazolin. Today is day 6 for a total of 14 days treatment. 3. History of methadone and Xanax use and abuse. Patient has been counseled. 4. History of major depressive disorder and generalized anxiety disorder. Patient was evaluated one time by Dr. Reza. 5. Hypotension on presentation presumably due to combination of drug-induced and sepsis, improved. DISPOSITION: Still pending antibiotic arrangement and home health care for discharge. cc: Carlos Monsivais MD
[2019-08-18 16:31] LABS: PROTIME 13.3 Seconds (11.0-16.0)
--- NOTE | 2019-08-18 17:09 | INFECTIOUS DISEASE PROGRESS NO ---
DATE: 08/18/2019 PRESENT ILLNESS: The patient has a Staph bacteremia. He also has sinusitis. MEDICATIONS: This is day 6 of treatment with antibiotics for the patient's Staph bacteremia and sinusitis. Day 1 of treatment will be the first day that the patient's repeat blood cultures are negative. PHYSICAL EXAMINATION: Vital Signs: Temperature is 97.9 degrees, pulse 81, respirations 17, blood pressure 108/60. General: This is a chronically ill-appearing middle-aged male. He is in no acute distress. Head, eyes, ears, nose, and throat: Can hear my spoken words and see near objects. He does not have any white coating on his tongue. Neck: No pain with movement. Lungs: Clear to auscultation. Cardiovascular: Heart rate is regular. No murmur was heard. Abdomen: Soft and nontender. Neurologic: The patient is alert. He can ambulate. There is no tremor. Extremities: The patient has a left above the knee amputation. LAB AND X-RAY: There is no new radiographic study. CBC today shows a white count of 13,120, hemoglobin 13.7, and platelet count 454,000. Creatinine is 0.7, GFR is greater than 60. ASSESSMENT AND PLAN: The patient has Staph bacteremia. He has had now a total of 6 days of antibiotics with day 1 being the first day that the repeat blood culture was negative. He will require 8 more days to complete the 2 week course. Then, after that, the patient will be put on Keflex 500 mg every 8 hours for 4 weeks to complete a 6-week treatment course. The reason for the 6-week treatment course is that the patient has metal in his right arm which may have become hematogenously infected. The reason for the Levaquin is to treat the patient's sinusitis. COMORBIDITIES: IV drug abuse, diabetes mellitus, schizophrenia, and medical noncompliance. cc: Ravin Artis MD
[2019-08-18] MEDS: TYLENOL PO PRN (21:20)
[2019-08-19] MEDS: HUMALOG SUBQ SCH (06:26)
[2019-08-19] MEDS: NS 1,000 ML IV SCH (06:35)
[2019-08-19] MEDS ORDERED: NS 250 ML ONE (08:24)
[2019-08-19] MEDS: XANAX PO SCH (08:43)
[2019-08-19] MEDS: THERA M PLUS PO SCH (08:43)
[2019-08-19] MEDS: LEVAQUIN PO SCH (08:43)
[2019-08-19] MEDS: KEFZOL 2 GM/D5W 2 GM/50 ML IVPB IV SCH (08:43)
[2019-08-19] MEDS: LYRICA PO SCH (08:43)
[2019-08-19] MEDS: VITAMIN B-1 PO SCH (08:43)
[2019-08-19] MEDS: MIRALAX PO SCH (08:44)
--- NOTE | 2019-08-19 11:24 | PROGRESS NOTE ---
DATE: 08/19/2019 SUBJECTIVE: This morning, Mr. Polo referred to be doing well. We are still pending a home health agency that will pick him up for the antibiotics therapy. OBJECTIVE: Vital Signs: Stable. Blood pressure 119/65, pulse of 63, respirations are 16, temperature is 97.8 degrees. The patient is saturating well. Physical examination is unremarkable. Mr. Polo is a 64-year-old, male. He is in bed. No distress. HEENT: Mucosa is pink and moist. Anicteric. Acyanotic. Neck: Supple. Chest: Clear to auscultation. Cardiovascular: Regular rate and rhythm. No murmurs, no rubs, no gallops. GI: Abdomen is soft. Extremities: No pedal edema. There is a left AKA noted. Laboratory Data: None for today. Patient's glucose was 146. ASSESSMENT: 1. Unresponsiveness on presentation secondary to drug-induced encephalopathy and sepsis-induced encephalopathy. 2. Methicillin-sensitive Staphylococcus aureus bacteremia due to intravenous drug use. Blood cultures have been negative. Patient is on cefazolin. Today is day 7 of a total of 14 days. He has a peripherally inserted central catheter line. He is pending approval from a home health agency so he can be discharged. 3. History of methadone and Xanax use and abuse. Patient has been counseled. 4. Hypotension on presentation, likely due to a combination of drug side effects and sepsis, improved. 5. History of major depressive disorder and generalized anxiety disorder. Patient was evaluated at one time by Dr. Reza. PLAN: In general, Mr. Polo is doing well. He is 7 days of 14 days treatment with IV antibiotics. We pending arrangement from the [facility]. cc: Carlos Monsivais MD
[2019-08-19 14:43] VITALS: BP 128/64
--- NOTE | 2019-08-19 23:10 | DISCHARGE SUMMARY ---
ADMISSION DATE: 08/10/2019 DISCHARGE DATE: 08/19/2019 INVASIVE PROCEDURES: None during this admission. DIAGNOSTIC DATA: Imaging studies of significance: 1. A chest x-ray showed linear atelectasis versus scarring. 2. A CT scan of the head on 08/09/2019 showed sinusitis. No acute disease. 3. A chest x-ray done on 08/09/2019 showed placement of a central line. No pneumothorax. 4. A CT scan of the chest shows small right pleural effusion with trace associated atelectasis, patchy peripheral fibrotic changes bilaterally. No pulmonary artery defects. 5. Echocardiogram did not show any abnormalities, effusions, mass or thrombus. Ejection fraction was 55%. PRESENTING COMPLAINT: Overdose. ADMISSION DIAGNOSES: 1. Drug overdose with Xanax and methadone. 2. Sepsis. 3. Hypotension. 4. Hypoxemia. 5. Polysubstance abuse. DISCHARGE DIAGNOSES: 1. Altered mental status with unresponsiveness on presentation secondary to drug-induced and sepsis-induced encephalopathy. 2. Methicillin-sensitive Staphylococcus aureus bacteremia due to intravenous drug use. 3. History of methadone and Xanax use and abuse. 4. Septic shock on presentation. 5. Hypotension likely due to a combination of sepsis and drug side effects. 6. History of major depressive disorder and generalized anxiety disorder. The patient was evaluated at one time by Dr. Reza. DISCHARGE MEDICATIONS: 1. Alprazolam 2 mg p.o. b.i.d. 2. Lyrica 75 mg p.o. daily. 3. Levaquin 500 p.o. daily. 4. Thiamine 100 mg p.o. daily. 5. Multivitamin. 6. Ancef per ID recommendations. HISTORY OF PRESENTING COMPLAINT: Mr. Pool is a 64-year-old male who presented to the emergency department because he was found with altered mentation and hypotension. He was brought to the emergency department. A head CT scan was negative. The patient did respond briefly to Narcan, so he was admitted to the ICU on Narcan drip. He was also placed on Levophed for hypotension and started on broad-spectrum antibiotics. HOSPITAL COURSE: Mr. Polo responded to initial management. He continued on antibiotics, Narcan drip for 24 hours. This was subsequently weaned off and his blood pressures got better on Levophed, and also fluid resuscitation. During the hospital course he improved, and he was transferred from the ICU to the medical floor. His blood cultures came back positive for Staphylococcus epidermidis, which was MSSA, so his antibiotics were all changed to Ancef, with which he did improve. Mr. Polo also had some previous orthopedic hardware in his bones, so ID recommends a more protracted period of antimicrobial therapy. He has been fairly stable during the hospital course. His blood pressures have normalized. His mentation has improved. He is doing pretty well. The only issue was that because of his drug abuse we are having difficulty getting him home with other health providers. Eventually a PICC line was placed in, and he signed to be responsible for the PICC line, not to use it for any other purposes. [facility] has evaluated him and they will supply him with his Ancef, and I understand [facility] has also agreed to see and follow him up. Mr. Polo is therefore being discharged in stable condition. He will follow up with Dr. Artis as an outpatient. We have obviously stressed the need for him to avoid any recreational drug use and also avoid the use of methadone and Xanax, especially if this is not prescribed. Time spent for discharge is 35 minutes. cc: MD Kath Minaya Unknown Dr. Artis
== END 2019-08-19 19:37 | disposition home health service (06) | DRG 917 ==
LOC: SUPCPDRO → ED 22:50 → ICU 22:50 → OBSVTOIN 08-10 03:41 → SUATTDRO 08-10 03:41 → 3N 08-10 20:32
PROVIDERS: ATTEND Internal Medicine

== ENCOUNTER 2019-10-15 13:42 | Inpatient (IN) ==
[2019-10-15] MEDS ORDERED: FLU VACCINE IM ONE (17:06)
[2019-10-15] MEDS ORDERED: TUBERSOL ID ONE ×2 (17:10→17:15)
[2019-10-15] MEDS ORDERED: D5W 1,000 ML IV PRN (17:15)
[2019-10-15] MEDS ORDERED: NICODERM PATCH TD PRN (17:15)
[2019-10-15] MEDS ORDERED: DESYREL PO PRN (17:15)
[2019-10-15] MEDS ORDERED: ZOFRAN ODT PO PRN (17:15)
[2019-10-15] MEDS ORDERED: IMODIUM PO PRN ×2 (17:15)
[2019-10-15] MEDS ORDERED: SENOKOT PO PRN (17:15)
[2019-10-15] MEDS ORDERED: ZOFRAN IM PRN (17:15)
[2019-10-15] MEDS ORDERED: ZOFRAN IV PRN (17:15)
[2019-10-15] MEDS ORDERED: DULCOLAX PR PRN (17:15)
[2019-10-15] MEDS ORDERED: MOTRIN PO PRN (17:15)
[2019-10-15] MEDS ORDERED: PHENOBARBITAL IV PRN (17:15)
[2019-10-15] MEDS ORDERED: NICOTINE GUM BUCCAL PRN (17:15)
[2019-10-15] MEDS ORDERED: MAALOX PLUS LIQUID PO PRN (17:15)
[2019-10-15 17:38] LABS: AMYLASE 50 U/L (20-200); LIPASE 31 U/L (13-60)
[2019-10-15 17:39] LABS: URINE SOURCE CLEAN CATCH
[2019-10-15] MEDS ORDERED: BENTYL PO PRN (17:40)
[2019-10-15] MEDS ORDERED: SALINE LOCK IV FLUID XX ONE (17:40)
[2019-10-15 17:43] LABS: BILIRUBIN URINE NEGATIVE (NEGATIVE); BLOOD URINE NEGATIVE (NEGATIVE); COLOR YELLOW; GLUCOSE URINE 200 mg/dL (NEGATIVE); KETONE URINE NEGATIVE (NEGATIVE); LEUKOCYTES URINE NEGATIVE (NEGATIVE); NITRITE URINE NEGATIVE (NEGATIVE); PH URINE 5.5; PROTEIN URINE TRACE mg/dL (NEGATIVE); SP GRAVITY URINE 1.023; TURBIDITY URINE CLEAR (CLEAR); UROBILINOGEN URINE NORMAL (NORMAL)
[2019-10-15 17:44] LABS: UR EPITHELIAL CELLS <10 /HPF (<10); URINE BACTERIA NEGATIVE /HPF; URINE RBC <10 /HPF (<10); URINE WBC <10 /HPF (<10)
[2019-10-15 17:54] LABS: UR AMPHETAMINES QUAL NONE DETECTED (NONE DETECT); UR BARBITUATES QUAL NONE DETECTED (NONE DETECT); UR BENZODIAZEPIN QUAL PRESUMPTIVE POSITIVE (NONE DETECT); UR CANNABINOIDS QUAL NONE DETECTED (NONE DETECT); UR COCAINE QUAL NONE DETECTED (NONE DETECT); UR METHADONE QUAL NONE DETECTED (NONE DETECT); UR METHAMPHETAMINE QUAL NONE DETECTED (NONE DETECT); UR OPIATES QUAL NONE DETECTED (NONE DETECT); UR OXYCODONE QUAL NONE DETECTED (NONE DETECT); UR PCP QUAL NONE DETECTED (NONE DETECT); UR PROPOXYPHENE QUAL NONE DETECTED (NONE DETECT); UR TCA QUAL NONE DETECTED (NONE DETECT)
[2019-10-15] MEDS: LIBRIUM PO SCH (17:55)
[2019-10-15] MEDS ORDERED: PNEUMOVAX 23 IM ONE (18:00)
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
[2019-10-15] MEDS: TYLENOL PO PRN (19:28)
[2019-10-15] MEDS: ROBAXIN PO PRN (19:28)
[2019-10-16] MEDS: LIBRIUM PO SCH ×5 (00:04→23:09)
[2019-10-16] MEDS: PROTONIX PO SCH (06:25)
[2019-10-16] MEDS: THERA M PLUS PO SCH (08:01)
[2019-10-16] MEDS: FOLIC ACID PO SCH (08:01)
[2019-10-16] MEDS: VITAMIN B-1 PO SCH (08:01)
[2019-10-16] MEDS: M.V.I.-12 10 ML, FOLIC ACID 1 MG, MAGNESIUM SULFATE 1 GM, THIAMINE 100 MG in NS 1,000 ML IV ONE ×2 (09:41→09:57)
[2019-10-16] MEDS: TYLENOL PO PRN (12:08)
[2019-10-16] MEDS: ROBAXIN PO PRN (12:08)
--- NOTE | 2019-10-16 18:02 | PROGRESS NOTE ---
DATE: 10/16/2019 SUBJECTIVE: Patient with no complaints. He is sleeping comfortably and easily arousable. OBJECTIVE: Vital signs reviewed. He is awake. He is easily awakened from his sleep.HEENT: Normocephalic. Neck supple. Cardiovascular: Regular rate. Chest clear. Abdomen soft. Extremities: Moves all extremities. ASSESSMENT: 1. Nausea and vomiting. 2. Abdominal pain. 3. Myalgias. 4. Tremors. 5. Paresthesias. 6. Alcohol abuse, withdrawal and stabilization. PLAN: We are going to continue the patient in the hospital. Continue counseling. Further orders as needed. cc: Maynor Jasso MD
[2019-10-16] MEDS: ATARAX PO PRN (19:27)
[2019-10-16] MEDS: SEROQUEL PO PRN (20:08)
[2019-10-17] MEDS: LIBRIUM PO SCH ×4 (05:04→23:05)
[2019-10-17] MEDS: PROTONIX PO SCH (06:08)
[2019-10-17] MEDS: THERA M PLUS PO SCH (09:33)
[2019-10-17] MEDS: FOLIC ACID PO SCH (09:33)
[2019-10-17] MEDS: VITAMIN B-1 PO SCH (09:33)
[2019-10-17] MEDS: TYLENOL PO PRN ×2 (11:58→18:17)
--- NOTE | 2019-10-17 14:59 | PROGRESS NOTE ---
DATE: 10/17/2019 SUBJECTIVE: The patient notes that he feels very anxious and jittery this morning. He feels shaky inside, but denies any true tremors, myalgias. Notes his sweating has improved. He did sleep better last night. PHYSICAL EXAMINATION: Vital Signs: Reviewed. Temperature 97 degrees, pulse 62, respiratory rate 18, BP 108/71. General: He is awake, alert. He is in no respiratory distress. The patient is pleasant. He is sitting in the chair. HEENT: Normocephalic. Neck: Supple. Cardiovascular: Regular rate. Chest: Clear. Abdomen: Soft. Extremities: Moves all extremities. Neurologic: No changes. ASSESSMENT: 1. Nausea and vomiting. 2. Abdominal pain. 3. Myalgias. 4. Tremors. 5. Paresthesias. 6. Paroxysmal sweating. 7. Acute anxiety. 8. Alcohol abuse withdrawal and stabilization. PLAN: We are actually going to increase the Librium back to 50 every 6 hours today as opposed to decreasing it to 25 every 6 hours, and will follow. Continue counseling and education. Further orders as needed. cc: Maynor Jasso MD
[2019-10-17] MEDS: ATARAX PO PRN (18:17)
[2019-10-17] MEDS: SEROQUEL PO PRN (23:05)
[2019-10-18] MEDS: LIBRIUM PO SCH ×4 (05:12→22:09)
[2019-10-18 05:41] LABS: HEMATOCRIT 43.3 % (42.0-52.0); MCH 30.2 PG (27-31); MCHC 32.3 g/dL (33-37); MCV 93.3 FL (81-99); MPV 10.8 FL (7.4-10.4); RBC 4.64 XMIL (4.7-6.1); RDW 14.9 % (11.5-14.5); WBC 8.94 X1000 (4.8-10.8)
[2019-10-18] MEDS: PROTONIX PO SCH (06:06)
[2019-10-18 06:20] LABS: AGAP 10; ALBUMIN 3.5 g/dL (3.5-5.0); ALKALINE PHOSPHATASE 109 U/L (32-122); BUN 9 mg/dL (8-22); CALCIUM 8.7 mg/dL (8.8-10.2); CHLORIDE 105 mmol/L (98-107); COSMO 281; CREATININE 0.6 mg/dL (0.7-1.2); ESTIMATED GFR > 60; GLUCOSE 178 mg/dL (70-104); GOT 282 U/L (10-34); GPT 651 U/L (10-44); MAGNESIUM 1.6 mg/dL (1.5-2.7); POTASSIUM 3.8 mmol/L (3.5-5.1); SODIUM 139 mmol/L (136-145); TCO2 24 mmol/L (25-35); TOTAL PROTEIN 6.3 g/dL (6.3-8.3)
[2019-10-18] MEDS: THERA M PLUS PO SCH (10:55)
[2019-10-18] MEDS: VITAMIN B-1 PO SCH (10:55)
[2019-10-18] MEDS: FOLIC ACID PO SCH (10:55)
[2019-10-18] MEDS: ATARAX PO PRN (19:45)
--- NOTE | 2019-10-18 22:08 | PROGRESS NOTE ---
DATE: 10/18/2019 SUBJECTIVE: Patient notes he is feeling a little bit better today. Denies any fevers or chills. PHYSICAL: Temperature 97.7, pulse 62, respiratory 18, BP 103/71.General: Patient is awake, he is in no distress. HEENT: Normocephalic. Neck: Supple. CV: Regular rate. Chest: Clear. Abdomen: Soft. Extremities: Moves all extremities. ASSESSMENT: 1. Nausea, vomiting. 2. Abdominal pain. 3. Myalgias. 4. Paresthesias. 5. Paroxysmal sweating. 6. Tremors. 7. Alcohol abuse withdrawal and stabilization. 8. Chronic anxiety, depression. 9. Left above-knee amputation. PLAN: Will continue patient in the hospital, continue Librium although will decrease to 25 q.6, continue counseling, further orders as needed. cc: Maynor Jasso MD
[2019-10-18] MEDS: SEROQUEL PO PRN (22:09)
[2019-10-19] MEDS: LIBRIUM PO SCH ×4 (04:02→17:49)
[2019-10-19] MEDS: PROTONIX PO SCH (06:23)
[2019-10-19] MEDS: VITAMIN B-1 PO SCH (10:48)
[2019-10-19] MEDS: FOLIC ACID PO SCH (10:48)
[2019-10-19] MEDS: THERA M PLUS PO SCH (10:48)
[2019-10-19] MEDS: REVIA PO SCH (11:30)
[2019-10-19 13:55] LABS: HEPATITIS PROFILE ACUTE SEE COMMENTS
--- NOTE | 2019-10-19 17:16 | PROGRESS NOTE ---
DATE: 10/19/2019 SUBJECTIVE: The patient notes that he is anxious and nervous. Denies any chest pain or palpitations. Denies any tremors, fevers or chills. OBJECTIVE: Vital signs reviewed. He is awake, alert. He is in no distress. HEENT: Normocephalic. Neck supple. Cardiovascular: Regular rate. Chest clear. Abdomen soft.Extremities: Moves all extremities. ASSESSMENT: 1. Nausea and vomiting. 2. Abdominal pain. 3. Myalgias. 4. Tremors. 5. Paresthesias. 6. Paroxysmal sweating. 7. Alcohol abuse, withdrawal and stabilization. PLAN: We are going to continue the patient in the hospital. Continue to wean Librium down to 25 q.8 today and will follow. Hopefully he can discharge home over the next 1-2 days. cc: Maynor Jasso MD
[2019-10-19] MEDS: ATARAX PO PRN (20:29)
[2019-10-19] MEDS: SEROQUEL PO PRN (20:29)
[2019-10-20 05:40] VITALS: BP 136/65
[2019-10-20] MEDS: PROTONIX PO SCH (06:15)
[2019-10-20] MEDS ORDERED: CELEXA PO SCH (09:00)
[2019-10-20] MEDS ORDERED: LIBRIUM PO SCH (09:00)
[2019-10-20] MEDS: REVIA PO SCH (10:13)
[2019-10-20] MEDS: FOLIC ACID PO SCH (10:14)
[2019-10-20] MEDS: THERA M PLUS PO SCH (10:14)
[2019-10-20] MEDS: VITAMIN B-1 PO SCH (10:14)
--- NOTE | 2019-10-20 15:25 | DISCHARGE SUMMARY ---
ADMISSION DATE: 10/15/2019 DISCHARGE DATE: 10/20/2019 DISCHARGE DIAGNOSES: 1. Hepatitis C. New diagnosis, patient is aware and plans for followup as an outpatient with GI. 2. Nausea and vomiting, resolved. 3. Abdominal pain, resolved. 4. Tremors, resolved. 5. Myalgias, resolved. 6. Paresthesias, resolved. 7. Alcohol abuse, withdrawal and stabilization. 8. Chronic anxiety and depression. CONSULTATIONS: None. PROCEDURES: None. BRIEF HOSPITAL COURSE: The patient is a 64-year-old male who presented to [facility] secondary to alcohol abuse withdrawal and admitted for stabilization. He is having withdrawal symptoms as noted in the HPI. Thankfully on discharge he is markedly improved. He is feeling better. He is able to ambulate in a wheelchair without much difficulty. States that he is feeling better and would like to go home. DISPOSITION: Patient will be discharged home. He certainly needs to follow up as outpatient with treatment facility of choice, as well as counseling and life counseling. We would prefer him to go to further inpatient counseling, but that unfortunately is not available at the moment. We will continue him on Celexa and naltrexone, both of which were started in the hospital. 32 minutes was spent in total care. cc: Maynor Jasso MD MTDD
[2019-10-22 12:08] LABS: HCV BY PCR SEE COMMENTS
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
== END 2019-10-20 12:50 | disposition home or self-care (01) ==
LOC: P.ED 13:42 → P.MEDSURG 16:27
PROVIDERS: ADMIT Family Medicine; ATTEND Family Medicine

== ENCOUNTER 2019-10-25 01:14 | Inpatient (IN) ==
[2019-10-25 02:13] LABS: UR AMPHETAMINES QUAL NONE DETECTED (NONE DETECT)
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
[2019-10-25 02:14] LABS: UR BARBITUATES QUAL NONE DETECTED (NONE DETECT); UR BENZODIAZEPIN QUAL PRESUMPTIVE POSITIVE (NONE DETECT); UR CANNABINOIDS QUAL NONE DETECTED (NONE DETECT); UR COCAINE QUAL NONE DETECTED (NONE DETECT); UR METHADONE QUAL NONE DETECTED (NONE DETECT); UR METHAMPHETAMINE QUAL NONE DETECTED (NONE DETECT); UR OPIATES QUAL PRESUMPTIVE POSITIVE (NONE DETECT); UR OXYCODONE QUAL NONE DETECTED (NONE DETECT); UR PCP QUAL NONE DETECTED (NONE DETECT); UR PROPOXYPHENE QUAL NONE DETECTED (NONE DETECT); UR TCA QUAL NONE DETECTED (NONE DETECT)
[2019-10-25] MEDS ORDERED: ATIVAN IV ONE (02:32)
[2019-10-25] MEDS ORDERED: THIAMINE 100 MG in NS 50 ML IV ONE (02:32)
[2019-10-25 02:42] LABS: BASO# 0.04 X1000 (0.0-0.2); BASO% 0.3 % (0.0-0.8); EOS# 0.03 X1000 (0.0-0.7); EOS% 0.2 % (0.0-10.0); HEMATOCRIT 41.3 % (42.0-52.0); HEMOGLOBIN 13.7 g/dL (14.0-18.0); IMM GRAN# 0.04 X1000 (0.0-0.04); IMM GRAN% 0.3 % (0.0-0.5); LYMPH# 1.24 X1000 (1.2-3.4); LYMPH% 8.8 % (20.5-51.1); MCH 30.5 PG (27-31); MCHC 33.2 g/dL (33-37); MONO# 1.07 X1000 (0.11-0.59); MONO% 7.6 % (1.7-9.3); MPV 11.5 FL (7.4-10.4); NEUT# 11.68 X1000 (1.4-6.5); NEUT% 82.8 % (42.2-75.2); PLT 365 X1000 (130-400); RBC 4.49 XMIL (4.7-6.1); RDW 15.2 % (11.5-14.5)
[2019-10-25 02:43] LABS: ACETAMINOPHEN < 1.2 ug/mL (10-30); SALICYLATES < 3.00 mg/dL (3-10)
[2019-10-25 02:52] LABS: AGAP 13; ALKALINE PHOSPHATASE 132 U/L (32-122); BUN 11 mg/dL (8-22); CHLORIDE 99 mmol/L (98-107); COSMO 274; CREATININE 0.6 mg/dL (0.7-1.2); ESTIMATED GFR > 60; GLUCOSE 142 mg/dL (70-104); GOT 374 U/L (10-34); POTASSIUM 3.8 mmol/L (3.5-5.1); SODIUM 136 mmol/L (136-145); TCO2 24 mmol/L (25-35); TOTAL PROTEIN 6.8 g/dL (6.3-8.3)
[2019-10-25] MEDS ORDERED: NS 1,000 ML IV ONE (03:09)
[2019-10-25 03:18] LABS: GPT 930 U/L (10-44)
[2019-10-25 05:16] LABS: URINE SOURCE CLEAN CATCH
[2019-10-25 05:19] LABS: BILIRUBIN URINE NEGATIVE (NEGATIVE); BLOOD URINE NEGATIVE (NEGATIVE); COLOR YELLOW; GLUCOSE URINE 500 mg/dL (NEGATIVE); KETONE URINE NEGATIVE (NEGATIVE); LEUKOCYTES URINE NEGATIVE (NEGATIVE); NITRITE URINE NEGATIVE (NEGATIVE); PH URINE 5.5; PROTEIN URINE NEGATIVE (NEGATIVE); SP GRAVITY URINE 1.018; TURBIDITY URINE CLEAR (CLEAR); UROBILINOGEN URINE NORMAL (NORMAL)
--- NOTE | 2019-10-25 05:22 | EKG Report ---
Test Performed on : 10/25/2019 04:00:19 AM Test Reason : pain Blood Pressure : / mmHG Vent. Rate : 099 BPM Atrial Rate : 099 BPM P-R Int : 136 ms QRS Dur : 078 ms QT Int : 342 ms P-R-T Axes : 043 024 027 degrees QTc Int : 438 ms Normal sinus rhythm. Normal ECG When compared with ECG of 02-OCT-2019 04:50, (Unconfirmed) No significant change was found Unconfirmed Result
[2019-10-25 05:44] LABS: UR EPITHELIAL CELLS <10 /HPF (<10); URINE BACTERIA 2+ /HPF; URINE RBC <10 /HPF (<10); URINE WBC <10 /HPF (<10)
[2019-10-25] MEDS ORDERED: BENTYL PO PRN (08:37)
[2019-10-25] MEDS ORDERED: LIBRIUM PO SCH (09:00)
[2019-10-25] MEDS ORDERED: M.V.I.-12 10 ML, FOLIC ACID 1 MG, MAGNESIUM SULFATE 1 GM, THIAMINE 100 MG in NS 1,000 ML IV ONE (09:30)
[2019-10-25] MEDS: NS 1,000 ML IV SCH ×2 (09:31→21:29)
[2019-10-25] MEDS: LIBRIUM PO SCH ×3 (09:33→21:27)
[2019-10-25] MEDS: ATARAX PO PRN ×2 (09:36→17:30)
[2019-10-25] MEDS: ROBAXIN PO PRN ×2 (09:37→17:32)
[2019-10-25 09:42] LABS: HEMOGLOBIN A1C 6.9 % (4.8-6.0)
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
[2019-10-25] MEDS: HUMALOG (PARKWAY) SUBQ SCH ×3 (11:00→21:16)
[2019-10-25] MEDS: ATIVAN IV PRN ×2 (17:31→21:35)
[2019-10-25] MEDS ORDERED: BENADRYL CREAM TOP PRN (18:18)
[2019-10-25] MEDS: NICODERM PATCH TD SCH (21:26)
[2019-10-25] MEDS: THIAMINE 500 MG in NS 50 ML IV SCH (21:27)
[2019-10-25 21:28] LABS: INR 1.15; PROTIME 14.9 Seconds (11.0-16.0)
[2019-10-25] MEDS: LYRICA PO SCH (21:28)
[2019-10-25] MEDS: PROTONIX IV SCH (21:28)
[2019-10-25] MEDS: SODIUM CHLORIDE 0.9% INJ SCH (21:28)
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
[2019-10-26] MEDS: ATIVAN IV PRN ×5 (03:12→20:32)
[2019-10-26] MEDS: LIBRIUM PO SCH ×4 (03:12→20:37)
[2019-10-26] MEDS: THIAMINE 500 MG in NS 50 ML IV SCH ×3 (05:02→23:16)
[2019-10-26] MEDS: HUMULIN R SUBQ SCH ×4 (06:31→21:11)
--- NOTE | 2019-10-26 07:19 | Diag Imaging Result Doc PS360 ---
EXAM: CHEST-1 VIEW INDICATION: dyspnea TECHNIQUE: One view COMPARISON: 10/02/2019 FINDINGS: There is mild subsegmental atelectasis at the left lung base and right midlung zone. There are mild increased interstitial markings bilaterally suggesting mild edema. There is chronic blunting of the left costophrenic angle suggesting fibrosis. There is no discrete pleural fluid collection or pneumothorax. There is no cardiomegaly. Central vasculature is mildly prominent suggesting mild pulmonary venous congestion. IMPRESSION: Suggestion of mild pulmonary venous congestion and interstitial edema. Electronically signed by Matt Lopez 10/26/2019 7:17 AM
[2019-10-26 07:24] LABS: AGAP 12; ALBUMIN 2.7 g/dL (3.5-5.0); ALKALINE PHOSPHATASE 90 U/L (32-122); BUN 9 mg/dL (8-22); CALCIUM 7.8 mg/dL (8.8-10.2); CHLORIDE 106 mmol/L (98-107); COSMO 275; CREATININE 0.6 mg/dL (0.7-1.2); ESTIMATED GFR > 60; GLUCOSE 85 mg/dL (70-104); GOT 246 U/L (10-34); GPT 696 U/L (10-44); MAGNESIUM 2.2 mg/dL (1.5-2.7); PHOSPHORUS 2.4 mg/dL (2.7-4.5); POTASSIUM 4.2 mmol/L (3.5-5.1); SODIUM 139 mmol/L (136-145); TCO2 21 mmol/L (25-35); TOTAL PROTEIN 5.5 g/dL (6.3-8.3)
[2019-10-26] MEDS ORDERED: M.V.I.-12 10 ML, FOLIC ACID 1 MG, MAGNESIUM SULFATE 1 GM, THIAMINE 100 MG in NS 1,000 ML IV SCH (09:00)
[2019-10-26] MEDS: M.V.I.-12 10 ML, FOLIC ACID 1 MG, MAGNESIUM SULFATE 1 GM, THIAMINE 100 MG in NS 1,000 ML IV SCH (09:16)
[2019-10-26] MEDS: LYRICA PO SCH ×2 (09:16→20:32)
[2019-10-26] MEDS: NICODERM PATCH TD SCH (09:16)
[2019-10-26] MEDS ORDERED: ULTRAM PO PRN (12:08)
[2019-10-26] MEDS: NS 1,000 ML IV SCH ×2 (14:17→23:15)
[2019-10-26] MEDS ORDERED: DILAUDID IV PRN (15:09)
[2019-10-26] MEDS: SODIUM CHLORIDE 0.9% INJ SCH (18:53)
[2019-10-26] MEDS: PROTONIX IV SCH (20:31)
[2019-10-26] MEDS: LOVENOX SUBQ SCH (21:41)
[2019-10-26] MEDS: ZOLOFT PO SCH (21:41)
--- NOTE | 2019-10-26 22:56 | PROGRESS NOTE ---
DATE: 10/26/2019 SUBJECTIVE: The patient states that he does not feel well today. OBJECTIVE: Vital Signs: Temperature 98.4 degrees, blood pressure 110/73, heart rate 77, respirations 18, O2 saturations 100% on 2 L nasal cannula. General: This is a chronically ill- appearing elderly male lying in bed. Heart: S1, S2 normal. Regular rate and rhythm. Lungs: Equal air entry bilaterally. No wheezing. No rales. Abdomen: Positive bowel sounds. Soft, nontender, nondistended. Extremities: The patient has a left AKA. No edema noted in the right lower extremity. Neurologic: The patient is alert and oriented x3. LABS: Sodium 139, potassium 4.2, chloride 106, CO2 21, BUN 9, creatinine 0.6, glucose 85, magnesium 2.2, calcium 7.8. AST 246, ALT 696. ASSESSMENT AND PLAN: 1. Alcohol withdrawal. The patient is more awake and alert today. He is currently on Librium. The patient states that he is interested in getting substance abuse help. 2. Heroin abuse and dependence. Aware. The patient is interested in possibly going to [facility] at [place]. We will consult with Construction Carpenter. 3. Tobacco dependence. The patient has been counseled about smoking cessation. 4. Diabetes mellitus type 2. This is a new diagnosis for the patient. His hemoglobin A1c is 6.9. We will continue with sliding scale insulin at this time. 5. Transaminitis. The patient has known hepatitis C. He states that he has not been treated for his hepatitis C. The liver function tests are improving. We will continue to monitor closely. We will plan to refer the patient to Gastroenterology as outpatient for further discussion on treatment for the hepatitis C. 6. Chronic back pain. We will start the patient on tramadol. 7. Deep vein thrombosis prophylaxis. We will start the patient on Lovenox. 8. Disposition. The patient is stable for transfer to the medical floor on telemetry. We will also consult Physical therapy and Construction Carpenter for discharge planning. cc: Becki Law MD
[2019-10-27] MEDS: LIBRIUM PO SCH ×4 (03:25→20:18)
[2019-10-27] MEDS: ATIVAN IV PRN ×3 (03:28→20:16)
[2019-10-27] MEDS: HUMULIN R SUBQ SCH ×3 (06:31→23:52)
[2019-10-27] MEDS: THIAMINE 500 MG in NS 50 ML IV SCH ×2 (06:51→14:39)
[2019-10-27 08:24] LABS: AGAP 10; ALB/GLOB RATIO 1.1; ALBUMIN 3.2 g/dL (3.5-5.0); ALKALINE PHOSPHATASE 99 U/L (32-122); BUN 7 mg/dL (8-22); CALCIUM 8.1 mg/dL (8.8-10.2); CHLORIDE 105 mmol/L (98-107); COSMO 279; CREATININE 0.7 mg/dL (0.7-1.2); ESTIMATED GFR > 60; GLUCOSE 125 mg/dL (70-104); GOT 229 U/L (10-34); GPT 721 U/L (10-44); PHOSPHORUS 2.6 mg/dL (2.7-4.5); POTASSIUM 3.5 mmol/L (3.5-5.1); SODIUM 140 mmol/L (136-145); TCO2 25 mmol/L (25-35); TOTAL BILIRUBIN 0.25 mg/dL (0.20-1.00); TOTAL PROTEIN 6.2 g/dL (6.3-8.3)
[2019-10-27] MEDS ORDERED: ATIVAN IV ONE (09:39)
[2019-10-27] MEDS: M.V.I.-12 10 ML, FOLIC ACID 1 MG, MAGNESIUM SULFATE 1 GM, THIAMINE 100 MG in NS 1,000 ML IV SCH (09:59)
[2019-10-27] MEDS: LYRICA PO SCH ×2 (09:59→20:17)
[2019-10-27] MEDS ORDERED: POTASSIUM PHOSPHATE 20 MMOL in NS 250 ML IV ONE (10:00)
[2019-10-27] MEDS: NICODERM PATCH TD SCH (10:01)
--- NOTE | 2019-10-27 12:42 | PROGRESS NOTE ---
DATE: 10/27/2019 SUBJECTIVE: The patient states that he initially wanted to leave AGAINST MEDICAL ADVICE, but has decided to stay in the hospital. He states that he is depressed and feeling anxious. OBJECTIVE: Vital Signs: Temperature 98.4 degrees, blood pressure 138/93, heart rate 91, respirations 15, O2 saturation is 100% on 2 L nasal cannula. General: This is a chronically ill- appearing, elderly male, lying in bed in no acute. Heart: S1, S2 normal. Regular rate and rhythm. Lungs: Equal air entry bilaterally. No wheezing. No rales. Abdomen: Positive bowel sounds. Soft, nontender, nondistended. Extremities: The patient has a left AKA. No edema noted in the right leg. Neurologic: The patient is alert and oriented x4. LABORATORY DATA: Sodium 140, potassium 3.5, chloride 105, CO2 of 25, BUN 7, creatinine 0.7, glucose 125, calcium 8.1. Phosphorus 2.6. AST 229, ALT 721, alkaline phosphatase 99. ASSESSMENT AND PLAN: 1. Alcohol withdrawal. Continue on the Librium taper. 2. Heroin abuse and dependence. Aware. Will consult Double Surface Operator for assistance with inpatient drug rehab placement. The patient has been seen at the [facility] [place] during a prior admission. 3. Tobacco dependence. The patient has been counseled about smoking cessation. 4. Diabetes mellitus type 2. Continue on metformin. 5. Elevated liver function tests. Will order an abdominal ultrasound. The patient does have hepatitis C. Will check for secondary causes for the patient's elevated liver function tests. Will also consult with Gastroenterology. 6. Hypophosphatemia. Will replace the patient's potassium. 7. Depression. Continue on Zoloft. 8. Insomnia. Will start the patient on Ambien. 9. Chronic back pain. Continue on tramadol. 10. Deep vein thrombosis prophylaxis. Continue on Lovenox. 11. Disposition. Double Surface Operator has been consulted for assistance with inpatient drug rehab placement. cc: Becki Law MD
--- NOTE | 2019-10-27 17:20 | Diag Imaging Result Doc PS360 ---
EXAM: US ABDOMEN-COMPLETE INDICATION: elevated liver function COMPARISON: 06/07/2015 FINDINGS: There has been a prior cholecystectomy. The common bile duct is mildly prominent measuring up to 8 mm in diameter, likely compensatory related to postcholecystectomy status. The liver is grossly unremarkable. No discrete hepatic mass is identified. Portal venous flow is hepatopetal. The pancreas is obscured. The aorta is also obscured. The IVC is unremarkable. There has been a prior splenectomy. The kidneys are grossly unremarkable. IMPRESSION: Mildly prominent common bile duct that is probably compensatory related to postcholecystectomy status. Essentially unremarkable, otherwise. Electronically signed by Matt Lopez 10/27/2019 5:18 PM
[2019-10-27] MEDS: PROTONIX IV SCH (20:15)
[2019-10-27] MEDS: ZOLOFT PO SCH (20:17)
[2019-10-27] MEDS: GLUCOPHAGE PO SCH (20:17)
[2019-10-27] MEDS: LOVENOX SUBQ SCH (20:18)
[2019-10-27] MEDS: REMERON PO SCH (20:18)
[2019-10-27] MEDS: AMBIEN PO SCH (23:56)
[2019-10-28] MEDS: HUMULIN R SUBQ SCH ×5 (06:06→22:23)
[2019-10-28] MEDS: ATIVAN IV PRN ×3 (06:15→22:27)
[2019-10-28] MEDS: LIBRIUM PO SCH (06:16)
[2019-10-28 07:19] LABS: HEMATOCRIT 41.8 % (42.0-52.0); HEMOGLOBIN 13.7 g/dL (14.0-18.0); MCH 31.1 PG (27-31); MCHC 32.8 g/dL (33-37); MCV 94.8 FL (81-99); MPV 11.9 FL (7.4-10.4); RBC 4.41 XMIL (4.7-6.1); RDW 15.7 % (11.5-14.5); WBC 8.99 X1000 (4.8-10.8)
[2019-10-28 07:42] LABS: AGAP 11; ALB/GLOB RATIO 0.9; ALKALINE PHOSPHATASE 99 U/L (32-122); BUN 8 mg/dL (8-22); CALCIUM 8.2 mg/dL (8.8-10.2); CHLORIDE 106 mmol/L (98-107); COSMO 285; CREATININE 0.7 mg/dL (0.7-1.2); ESTIMATED GFR > 60; GLUCOSE 164 mg/dL (70-104); GOT 146 U/L (10-34); GPT 641 U/L (10-44); PHOSPHORUS 3.1 mg/dL (2.7-4.5); SODIUM 142 mmol/L (136-145); TCO2 25 mmol/L (25-35); TOTAL BILIRUBIN < 0.15 mg/dL (0.20-1.00); TOTAL PROTEIN 6.2 g/dL (6.3-8.3)
[2019-10-28] MEDS: GLUCOPHAGE PO SCH ×2 (08:31→17:51)
[2019-10-28] MEDS: NICODERM PATCH TD SCH (08:32)
[2019-10-28] MEDS: LYRICA PO SCH ×2 (08:32→22:29)
[2019-10-28] MEDS: M.V.I.-12 10 ML, FOLIC ACID 1 MG, MAGNESIUM SULFATE 1 GM, THIAMINE 100 MG in NS 1,000 ML IV SCH (08:32)
[2019-10-28 12:02] LABS: HEPATITIS PROFILE ACUTE SEE COMMENTS
[2019-10-28] MEDS: PROTONIX IV SCH (17:52)
[2019-10-28] MEDS: SODIUM CHLORIDE 0.9% INJ SCH (17:52)
--- NOTE | 2019-10-28 21:57 | PROGRESS NOTE ---
DATE: 10/28/2019 SUBJECTIVE: The patient is resting in bed. He has no complaints. No acute events noted overnight. OBJECTIVE: Vital signs: Temperature 99.6 degrees, blood pressure 132/87, heart rate 87, respirations 24, O2 saturations 100% on room air. General: He is an elderly male lying in bed in no acute distress. Heart: S1, S2 normal. Regular rate and rhythm. Lungs: Clear to auscultation bilaterally. Abdomen: Positive bowel sounds, soft, nontender, nondistended. Extremities: No edema, no cyanosis. Neurological: The patient is alert and oriented x3. LABORATORY DATA: Sodium 142, potassium 4, chloride 106, CO2 25, BUN 8, creatinine 0.7, glucose 164, AST 146, ALT 641, alkaline phosphatase 99, albumin 3. ASSESSMENT AND PLAN: 1. Alcohol withdrawal. Resolved. The patient is currently receiving Ativan as needed for anxiety. 2. Heroin abuse with dependence. Aware. The patient has been given a list of outpatient drug rehab options. 3. Tobacco dependence. The patient has been counseled about smoking cessation. 4. Diabetes mellitus type 2. Continue on metformin. The patient was seen by the dietitian and given dietary recommendations for him to use once he leaves the hospital. 5. Transaminitis. Slowly improving. We will arrange for the patient to follow up with GI as outpatient for further evaluation. 6. Hepatitis C. Aware. The patient will follow up with GI as outpatient. 7. Chronic back pain. Continue on tramadol. 8. Depression. Continue on Zoloft. DISPOSITION: We will plan to discharge the patient home tomorrow. cc: Becki Law MD
[2019-10-28] MEDS: ZOLOFT PO SCH (22:28)
[2019-10-28] MEDS: LOVENOX SUBQ SCH (22:29)
[2019-10-28] MEDS: REMERON PO SCH (22:29)
[2019-10-28] MEDS: AMBIEN PO SCH (22:29)
[2019-10-29] MEDS: HUMULIN R SUBQ SCH ×2 (06:14→11:37)
[2019-10-29] MEDS: ATIVAN IV PRN ×2 (06:49→11:45)
[2019-10-29 07:59] LABS: AGAP 12; ALBUMIN 3.6 g/dL (3.5-5.0); ALKALINE PHOSPHATASE 115 U/L (32-122); BUN 9 mg/dL (8-22); CALCIUM 9.1 mg/dL (8.8-10.2); CHLORIDE 105 mmol/L (98-107); COSMO 287; CREATININE 0.8 mg/dL (0.7-1.2); ESTIMATED GFR > 60; GLUCOSE 133 mg/dL (70-104); GOT 117 U/L (10-34); GPT 624 U/L (10-44); POTASSIUM 4.6 mmol/L (3.5-5.1); SODIUM 144 mmol/L (136-145); TCO2 27 mmol/L (25-35); TOTAL BILIRUBIN 0.16 mg/dL (0.20-1.00); TOTAL PROTEIN 7.1 g/dL (6.3-8.3)
[2019-10-29] MEDS: GLUCOPHAGE PO SCH (08:27)
[2019-10-29] MEDS: NICODERM PATCH TD SCH (08:27)
[2019-10-29] MEDS: LYRICA PO SCH (08:27)
[2019-10-29 11:24] VITALS: BP 125/79
--- NOTE | 2019-10-30 16:34 | DISCHARGE SUMMARY ---
ADMISSION DATE: 10/27/2019 DISCHARGE DATE: 10/29/2019 FINAL DISCHARGE DIAGNOSES: 1. Alcohol withdrawal. 2. Heroin abuse. 3. Tobacco dependence. 4. Diabetes mellitus type 2. 5. Transaminitis. 6. Hepatitis C. 7. Chronic back pain. 8. Depression. HOSPITAL COURSE: Mr. Polo is a 64-year-old male with a history of heroin abuse, alcohol abuse, and tobacco dependence who presented to the E.R. with alcohol withdrawal. The patient was initially treated in the ICU and improved and was transferred to the medical floor. The patient stated that he was interested in treatment for his substance abuse. Event Designer was consulted to assist with placement. The patient was noted to be diabetic which is a new diagnosis for the patient. He was started on metformin during this hospital stay. His hemoglobin A1c was noted to be 6.9. The patient's states that he has known hepatitis C but has never received treatment for it. The patient was noted to have elevated LFTs that were noted to be improving over the course of the hospital stay. The patient continued to improve clinically and was ultimately cleared for discharged home on 10/29/2019. The patient stated that he was going to start going to AA meetings on a regular basis and would be staying with his daughter until he was able to get into an inpatient rehab facility for his substance abuse. DISCHARGE MEDICATIONS: 1. Metformin 500 mg oral twice a day. 2. Ativan 1 mg oral every 6 hours p.r.n. for anxiety. 3. Zoloft 25 mg oral at bedtime. 4. Lyrica 75 mg oral twice a day. DISCHARGE DIET: 1800 ADA diet. ACTIVITY: As tolerated. FOLLOW UP INSTRUCTIONS: The patient will need to follow up with Dr. Kapadia in 2 weeks for discussion about possible treatment for his hepatitis C. The patient will need to follow up with Dr. Guerrero in 1 week. cc: Becki Law MD
[2019-11-01 11:52] LABS: HCV BY PCR SEE COMMENTS
== END 2019-10-29 14:46 | disposition home or self-care (01) | DRG 897 ==
LOC: P.EDIPHOLD 01:14 → P.ED 01:14 → SUATTDRO 05:28 → ICU 17:38 → 3N 10-26 15:19
PROVIDERS: ATTEND Internal Medicine

== ENCOUNTER 2019-10-30 12:34 | Inpatient (IN) ==
[~2019-10-30 12:34] MED LIST: NARCAN ONE
[2019-10-30] MEDS ORDERED: NS 1,000 ML ONE (12:47)
[2019-10-30] MEDS ORDERED: NARCAN IV ONE (12:47)
[2019-10-30] MEDS ORDERED: NS 1,000 ML IV ONE ×5 (12:51→14:52)
[2019-10-30] MEDS ORDERED: NARCAN 4 MG in NS 250 ML IV SCH (13:00)
[2019-10-30 13:01] LABS: URINE SOURCE CATH
[2019-10-30 13:07] LABS: BILIRUBIN URINE NEGATIVE (NEGATIVE); BLOOD URINE NEGATIVE (NEGATIVE); COLOR YELLOW; GLUCOSE URINE NEGATIVE (NEGATIVE); KETONE URINE NEGATIVE (NEGATIVE); LEUKOCYTES URINE NEGATIVE (NEGATIVE); NITRITE URINE NEGATIVE (NEGATIVE); PH URINE 5.5; PROTEIN URINE NEGATIVE (NEGATIVE); SP GRAVITY URINE 1.013; TURBIDITY URINE CLEAR (CLEAR); UROBILINOGEN URINE NORMAL (NORMAL)
[2019-10-30 13:08] LABS: UR EPITHELIAL CELLS <10 /HPF (<10); URINE BACTERIA NEGATIVE /HPF; URINE RBC <10 /HPF (<10); URINE WBC <10 /HPF (<10)
[2019-10-30 13:10] LABS: BASO% 0.4 % (0.0-0.8); HEMATOCRIT 47.9 % (42.0-52.0); HEMOGLOBIN 15.2 g/dL (14.0-18.0); IMM GRAN# 0.46 X1000 (0.0-0.04); LYMPH# 2.33 X1000 (1.2-3.4); LYMPH% 9.9 % (20.5-51.1); MCH 31.1 PG (27-31); MCHC 31.7 g/dL (33-37); MCV 98.2 FL (81-99); MONO# 3.11 X1000 (0.11-0.59); MONO% 13.3 % (1.7-9.3); MPV 11.3 FL (7.4-10.4); NEUT# 17.43 X1000 (1.4-6.5); NEUT% 74.4 % (42.2-75.2); PLT 405 X1000 (130-400); RBC 4.88 XMIL (4.7-6.1); RDW 16.3 % (11.5-14.5); WBC 23.43 X1000 (4.8-10.8)
[2019-10-30 13:22] LABS: UR AMPHETAMINES QUAL NONE DETECTED (NONE DETECT); UR BARBITUATES QUAL NONE DETECTED (NONE DETECT); UR BENZODIAZEPIN QUAL PRESUMPTIVE POSITIVE (NONE DETECT); UR CANNABINOIDS QUAL NONE DETECTED (NONE DETECT); UR COCAINE QUAL NONE DETECTED (NONE DETECT); UR METHADONE QUAL NONE DETECTED (NONE DETECT); UR METHAMPHETAMINE QUAL NONE DETECTED (NONE DETECT); UR OPIATES QUAL NONE DETECTED (NONE DETECT); UR OXYCODONE QUAL NONE DETECTED (NONE DETECT); UR PCP QUAL NONE DETECTED (NONE DETECT); UR PROPOXYPHENE QUAL NONE DETECTED (NONE DETECT); UR TCA QUAL NONE DETECTED (NONE DETECT)
[2019-10-30] MEDS ORDERED: NS 500 ML IV ONE (13:32)
[2019-10-30] MEDS ORDERED: MAXIPIME 1 GM in NS 50 ML IV ONE (13:33)
[2019-10-30 13:39] LABS: ACETAMINOPHEN < 1.2 ug/mL (10-30); AGAP 29; ALBUMIN 3.9 g/dL (3.5-5.0); ALKALINE PHOSPHATASE 266 U/L (32-122); BUN 19 mg/dL (8-22); CALCIUM 9.1 mg/dL (8.8-10.2); CHLORIDE 96 mmol/L (98-107); COSMO 289; CREATININE 2.3 mg/dL (0.7-1.2); ESTIMATED GFR 29; GLUCOSE 156 mg/dL (70-104); GOT 211 U/L (10-34); GPT 597 U/L (10-44); SALICYLATES < 3.00 mg/dL (3-10); SODIUM 142 mmol/L (136-145); TCO2 18 mmol/L (25-35); TOTAL PROTEIN 7.8 g/dL (6.3-8.3)
[2019-10-30 13:45] LABS: BE -13.7 mmoll (-3.0-3.0); BLOOD TYPE ARTERIAL; HCO3-(ACT) 14.1 mmoll (20.0-26.0); METHB 0.9 % (0.0-1.5); O2(CT) 20.7 mL/dL (15.0-23.0); O2HB 92.5 % (95.0-99.0); PCO2(98.6) 39 mmHg (35-45); PO2(98.6) 69 mmHg (60-100); SAMPLE BLOOD; SAO2 95.3 % (95.0-100.0); THB 15.9 g/dL (11.5-17.4)
[2019-10-30 13:48] LABS: MODALITY CANNULA; pH(98.6) 7.17 (7.35-7.45)
[2019-10-30 13:49] LABS: LYMPHS 20 % (21-51); MONO 10 % (1-9); SEGS 80 % (42-75)
[2019-10-30 13:49] LABS: ALLEN TEST YES
[2019-10-30] MEDS ORDERED: VANCOMYCIN 1 GM/NS 1 GM/250 ML IVPB IV ONE (14:18)
[2019-10-30] MEDS ORDERED: QUELICIN IV ONE ×2 (14:26)
[2019-10-30] MEDS ORDERED: AMIDATE IV ONE (14:26)
[2019-10-30] MEDS: LEVOPHED 8 MG in D5 1/2 NS 250 ML IV SCH ×2 (14:35→14:52)
[2019-10-30] MEDS ORDERED: LEVOPHED 8 MG in D5 1/2 NS 250 ML IV SCH ×2 (15:15→17:00)
--- NOTE | 2019-10-30 15:20 | Diag Imaging Result Doc PS360 ---
EXAM: CHEST-1 VIEW INDICATION: OD TECHNIQUE: One view COMPARISON: 10/26/2019 FINDINGS: There is a newly placed ET tube. The tip projects over the trachea and above the leonora at about the T3 level. Inspiration is suboptimal. There is platelike atelectasis in the mid lung zones bilaterally. There is no discrete pleural fluid collection or pneumothorax. Low lung volumes are causing mild central vascular crowding. There could be a component of pulmonary venous congestion. Cardiac silhouette is stable. IMPRESSION: 1.Interval placement of ET tube as described. 2.Subsegmental atelectasis at the mid lung zones bilaterally. 3.Central vascular crowding and/or mild pulmonary venous congestion. Electronically signed by Matt Lopez 10/30/2019 3:18 PM
[2019-10-30] MEDS ORDERED: ZOFRAN IV PRN ×2 (15:26→17:03)
[2019-10-30] MEDS ORDERED: DIPRIVAN 1% 1,000 MG/100 ML BOTTLE IV SCH ×2 (15:30→15:45)
[2019-10-30] MEDS ORDERED: ATIVAN IV ONE (15:51)
--- NOTE | 2019-10-30 15:57 | EKG Report ---
Test Performed on : 10/30/2019 1:02:27 PM Test Reason : OD Blood Pressure : / mmHG Vent. Rate : 100 BPM Atrial Rate : 100 BPM P-R Int : 148 ms QRS Dur : 088 ms QT Int : 356 ms P-R-T Axes : 061 045 -08 degrees QTc Int : 459 ms Normal sinus rhythm. Normal ECG When compared with ECG of 25-OCT-2019 04:00, (Unconfirmed) Inverted T waves have replaced nonspecific T wave abnormality in Inferior leads Unconfirmed Result
[2019-10-30 17:17] LABS: ALLEN TEST YES; BE -14.7 mmoll (-3.0-3.0); BLOOD TYPE ARTERIAL; HCO3-(ACT) 13.5 mmoll (20.0-26.0); METHB 0.7 % (0.0-1.5); O2(CT) 23.2 mL/dL (15.0-23.0); O2HB 98.4 % (95.0-99.0); PCO2(98.6) 37 mmHg (35-45); PO2(98.6) 287 mmHg (60-100); SAMPLE BLOOD; SAO2 100.3 % (95.0-100.0); SRATE 16 BPM; THB 16.3 g/dL (11.5-17.4); TVOL 550 mL
[2019-10-30 17:18] LABS: MODALITY VENTILATOR; pH(98.6) 7.16 (7.35-7.45)
[2019-10-30] MEDS: ZYVOX 600 MG/D5W 600 MG/300 ML IVPB IV SCH (17:56)
--- NOTE | 2019-10-30 18:01 | Diag Imaging Result Doc PS360 ---
EXAM: CT HEAD W/O CONTRAST INDICATION: ALOC TECHNIQUE: This exam was performed using automated exposure control, adjustment of mA or kV according to patient size, and/or use of iterative reconstruction technique. COMPARISON: 08/10/2019 FINDINGS: There is no definite acute infarct given the limited sensitivity of CT versus MRI. There is no discrete intracranial mass, mass effect, or intracranial hemorrhage. The surrounding soft tissues and bony structures are essentially unremarkable. IMPRESSION: No evidence of acute intracranial pathology. Electronically signed by Matt Lopez 10/30/2019 5:59 PM
--- NOTE | 2019-10-30 18:22 | Diag Imaging Result Doc PS360 ---
EXAM: CT THORAX/ABD/PELVIS W/O CON INDICATION: septic shock with unclear source. ? aspiration TECHNIQUE: This exam was performed using automated exposure control, adjustment of mA or kV according to patient size, and/or use of iterative reconstruction technique. COMPARISON: CT chest dated 08/11/[address] abdomen and pelvis dated 07/08/2019 FINDINGS: CHEST: There is bilateral dependent atelectasis with a basilar predominance. Although it is largely atelectasis, superimposed mild infiltrate is possible. There is no significant pleural effusion and no pneumothorax. There are a few calcified granulomata in the right lung. There are a few small calcified mediastinal and right hilar lymph nodes indicating prior granulomatous disease. An ET tube is in place. An NG tube is in place with the tip in the lumen of the stomach. ABDOMEN/PELVIS: The spleen is absent, likely having been resected. There has been a prior cholecystectomy. There is inflammatory stranding in the upper abdomen that appears to be emanating from the proximal duodenum. Consider duodenitis or duodenal ulcer. The pancreas is adjacent to this, although pancreatitis is possible, but appears less likely on these images. There is a small amount of free fluid around the liver. No extraluminal gas is identified. The adrenal glands and kidneys are essentially unremarkable. A Cheng catheter is in the urinary bladder and the bladder is nondistended. No colonic wall thickening is appreciated. There is no evidence of appendicitis. No small bowel wall thickening or bowel obstruction is appreciated. IMPRESSION: 1.Inflammatory stranding in the upper abdomen that appears to be emanating from the proximal duodenum. Consider duodenitis or a duodenal ulcer. The pancreas is adjacent to this, pancreatitis as a less likely consideration. 2.Small volume of fluid tracking around the liver. 3.Bilateral dependent atelectasis. Superimposed pneumonia is less likely but possible. 4.Other incidental/nonacute findings detailed above. Electronically signed by Matt Lopez 10/30/2019 6:20 PM
[2019-10-30 19:27] LABS: AMYLASE 731 U/L (20-200)
[2019-10-30 19:30] LABS: LIPASE 367 U/L (13-60)
[2019-10-30] MEDS ORDERED: SODIUM BICARBONATE 8.4% 50 MEQ in D5 1/2 NS 1,000 ML IV SCH (20:00)
[2019-10-30] MEDS: DIPRIVAN 1% 1,000 MG/100 ML BOTTLE IV SCH ×2 (20:29→21:57)
[2019-10-30] MEDS: SODIUM BICARBONATE IV SCH (20:30)
[2019-10-30] MEDS: 1/2 NS IV SCH (20:30)
[2019-10-30] MEDS: D5 IV SCH (20:30)
[2019-10-30] MEDS ORDERED: TYLENOL PR PRN (22:02)
--- NOTE | 2019-10-30 22:51 | HISTORY AND PHYSICAL ---
ADDENDUM: Patient seen and examined by myself. Full note dictated and discussed with nurse practitioner. Patient is a 64-year-old male who unfortunately has been struggling with drug use and abuse recently. He has been in the hospital twice secondary to such. He presented today obtunded. He currently is intubated. CT is pending. Will admit him to the hospital and place him on antibiotics. He certainly could be septic and will follow. cc: Maynor Jasso MD
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
[2019-10-30] MEDS: DUONEB (A & A) INH PRN (23:24)
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
[2019-10-31] MEDS: MAXIPIME 1 GM in NS 50 ML IV SCH ×2 (02:48→13:16)
[2019-10-31] MEDS: DUONEB (A & A) INH PRN ×6 (03:24→23:06)
[2019-10-31 05:09] LABS: ALLEN TEST YES; BE -8.2 mmoll (-3.0-3.0); BLOOD TYPE ARTERIAL; HCO3-(ACT) 18.4 mmoll (20.0-26.0); METHB 1.1 % (0.0-1.5); O2(CT) 21.2 mL/dL (15.0-23.0); O2HB 93.8 % (95.0-99.0); PCO2(98.6) 24 mmHg (35-45); PO2(98.6) 67 mmHg (60-100); SAMPLE BLOOD; SAO2 95.7 % (95.0-100.0); SRATE 24 BPM; THB 16.1 g/dL (11.5-17.4); TVOL 650 mL; pH(98.6) 7.39 (7.35-7.45)
[2019-10-31 05:11] LABS: MODALITY VENTILATOR
[2019-10-31] MEDS: D5 IV SCH ×3 (05:32→22:42)
[2019-10-31] MEDS: SODIUM BICARBONATE IV SCH ×3 (05:32→22:42)
[2019-10-31] MEDS: 1/2 NS IV SCH ×3 (05:32→22:42)
[2019-10-31] MEDS: ZYVOX 600 MG/D5W 600 MG/300 ML IVPB IV SCH ×2 (06:32→17:50)
[2019-10-31] MEDS: DIPRIVAN 1% 1,000 MG/100 ML BOTTLE IV SCH ×4 (06:35→22:42)
[2019-10-31 06:39] LABS: BASO# 0.02 X1000 (0.0-0.2); BASO% 0.2 % (0.0-0.8); HEMATOCRIT 33.2 % (42.0-52.0); HEMOGLOBIN 9.7 g/dL (14.0-18.0); IMM GRAN# 0.03 X1000 (0.0-0.04); IMM GRAN% 0.3 % (0.0-0.5); LYMPH# 1.68 X1000 (1.2-3.4); LYMPH% 14.2 % (20.5-51.1); MCHC 29.2 g/dL (33-37); MCV 102.8 FL (81-99); MONO# 1.57 X1000 (0.11-0.59); MONO% 13.3 % (1.7-9.3); MPV 11.8 FL (7.4-10.4); NEUT# 8.54 X1000 (1.4-6.5); PLT 235 X1000 (130-400); RBC 3.23 XMIL (4.7-6.1); RDW 16.8 % (11.5-14.5); WBC 11.84 X1000 (4.8-10.8)
--- NOTE | 2019-10-31 07:44 | Diag Imaging Result Doc PS360 ---
EXAM: CHEST-PORTABLE HISTORY: respiratory failure TECHNIQUE: Single view COMPARISON: 10/30/2019 FINDINGS: No change in the endotracheal tube. There is a nasogastric tube overlying the esophagus and stomach. Increased interstitial markings in both lungs. No cardiomegaly. Questionable tiny pleural effusions. IMPRESSION: Stable chest Electronically signed by Abdullahi Ortega 10/31/2019 7:42 AM
[2019-10-31 08:27] LABS: AMYLASE 376 U/L (20-200)
[2019-10-31 08:42] LABS: ALB/GLOB RATIO 1.1; ALBUMIN 2.8 g/dL (3.5-5.0); CK TOTAL 2565 U/L (24-204); CREATININE 1.8 mg/dL (0.7-1.2); MAGNESIUM 1.5 mg/dL (1.5-2.7); TOTAL BILIRUBIN 0.25 mg/dL (0.20-1.00); TOTAL PROTEIN 5.3 g/dL (6.3-8.3)
[2019-10-31 08:51] LABS: POTASSIUM 5.1 mmol/L (3.5-5.1)
[2019-10-31 08:52] LABS: CALCIUM 6.7 mg/dL (8.8-10.2)
[2019-10-31] MEDS ORDERED: CALCIUM GLUCONATE 2 GM in NS 100 ML IV ONE (09:31)
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
[2019-10-31 13:44] LABS: HEMATOCRIT 44.2 % (42.0-52.0); HEMOGLOBIN 14.8 g/dL (14.0-18.0)
[2019-10-31 13:46] LABS: CK INDEX 2.8 (0.0-2.5); CK-MB 12.58 ng/mL (0.0-5.0)
--- NOTE | 2019-10-31 16:28 | PULMONOLOGY PROGRESS NOTE ---
DATE: 10/31/2019 SUBJECTIVE: The patient is sedated. He remains on mechanical ventilation. OBJECTIVE: Vital Signs: Maximum temperature in the last 24 hours is 101.5 degrees, blood pressure 92/64 on vasopressors, heart rate 109, oxygen saturation 94%. HEENT: Pupils are equal and reactive. Oropharynx appears clear but dry. Neck: Supple. Chest: Reveals good air entry bilaterally with occasional rhonchi. Cardiac: S1-S2. Abdomen: Soft and without hepatosplenomegaly. No bowel sounds present. Extremities: Reveal trace peripheral edema. LABORATORIES: Influenza screen was negative. Urine culture reveals no growth. Sputum culture currently revealing normal nikky. Blood cultures are pending. White blood count 11.84, hemoglobin 9.7, platelet count 235,000. Arterial blood gas reveals a pH 7.39, pCO2 of 24, PO2 of 67 with a lactate of 4.0. Sodium 137, potassium 5.1, chloride 103, bicarbonate 15, anion gap 19, BUN 32, creatinine 1.8, glucose 292, calcium 67. IMPRESSION: A 64-year-old with 1. Acute hypoxemic respiratory failure. 2. Systemic inflammatory response syndrome/septic shock. 3. Altered mental status. 4. Acute renal failure. 5. Pancreatitis. 6. Duodenitis. 7. Transaminitis/hepatitis. 8. Remote history of splenectomy. 9. Nicotine addiction with ongoing tobacco use. DISCUSSION: A 64-year-old with problems outlined above. His lactic acidosis on serology has decreased to 3 this morning. His white blood count is improving. He remains critically ill. PLAN: 1. Continue full ventilatory support. 2. Continue current fluid resuscitation. 3. Continue current antibiotic regimen. 4. Discussed smoking cessation when he has clinically improved. 5. Additional recommendations pending hospital course. Time spent in critical care management: 40 minutes cc: Jun Negron MD [facility]
--- NOTE | 2019-10-31 18:37 | PROGRESS NOTE ---
DATE: 10/31/2019 INTERVAL HISTORY: The patient remains on Levophed although at a lower dose. He remains intubated and sedated. Did have some fevers overnight up to 101.5. No other acute events. REVIEW OF SYSTEMS: Unable to obtain secondary to patient mental status. LABS: WBC 11.8, hemoglobin 14.8, hematocrit 44.2, platelets 235,000. ABG with pH 7.39, pCO2 of 24, PO2 of 67 on ventilator. Sodium 137, potassium 5.1, bicarbonate 15, BUN 32, creatinine 1.8, glucose 292, calcium 6.7, AST 134, ALT 402, alkaline phosphatase 125. CK 2565. Troponin 451, essentially unchanged from original. Albumin 2.8, repeat lactate 3.8, still elevated. Blood and urine cultures, no growth so far. Influenza screen negative. IMAGING: CT chest abdomen and pelvis with inflammatory stranding in upper abdomen that appears to be from the proximal duodenum, possibly duodenitis or duodenal ulcer, less likely pancreatitis. Small volume of fluid around the liver. Bilateral atelectasis in the lungs. Pneumonia not impossible but unlikely. No other acute findings. Chest x-ray this morning, essentially unchanged from previous with increased interstitial markings. Otherwise, no acute process. Not really any change from previous. VITALS: T-max 101.5 degrees, pulse 90, respirations 24, blood pressure 119/77, O2 saturations 96% on 40% FiO2 via vent. PHYSICAL EXAMINATION: General: No acute distress, intubated and sedated. HEENT: Normocephalic, atraumatic. ET tube in place. Mucous membranes a little dry. Cardiovascular: Regular rate and rhythm. No murmurs noted. Pulmonary: A few scattered rhonchi but largely clear to auscultation bilaterally. Abdomen: Soft. No bowel sounds present. Difficult to assess tenderness with him being sedated, but does grimace to deep palpation in his abdomen fairly diffusely. Extremities: Trace bilateral lower extremity pitting edema. No clubbing or cyanosis. Peripheral pulses intact. Stable left above-knee amputation. Neurologic: Limited by sedation, but grimaces to noxious stimuli. Pupils equal, round, and reactive to light. No facial asymmetry. PSYCHIATRIC: Sedated. ASSESSMENT AND PLAN: 1. Septic shock. The patient remains on Levophed. Remains on antibiotics with cefepime and Zyvox. Intubated largely for airway protection. Initially on normal saline with transition to bicarb drip by Pulmonology this morning. Initially had severely low pH 7.16 and markedly elevated lactate 7.6. Both of those have improved. PH significantly better at 7.39. Still with an elevated lactate at 3.8. Continue fluids and antibiotics and pressors as needed. We have been able to wean the Levophed down some. His source of sepsis was not immediately apparent. Initial concern was actually for overdose as the patient has a significant drug history, but UDS showed only benzodiazepines. He had little response to Narcan. Initial CT showed duodenitis, which may be the source of infection. Did not show any clear evidence of lung infection, but there was concern for aspiration, so he remains on antibiotics to cover that as well with cefepime and Zyvox as above. Remains intubated and sedated, but weaning oxygen fairly quickly. If he will wake up a little more on weaning trials, I suspect to be able to be extubated fairly soon. Because of duodenitis as a possible source of sepsis, GI has been consulted. Will see what they say. Abdomen is not tense at all. He does have bowel sounds, so low suspicion for peritonitis at this point but will certainly keep it in mind if his clinical picture changes. 2. Acute kidney injury, likely due to septic shock. It is improving fairly quickly with fluids and antibiotics. Creatinine 2.3 on admission down to 1.8 today. 3. Diabetes. The patient on metformin alone at home, but fairly significant hyperglycemia this morning at 292. May be partially stress response. The patient is started on sliding scale insulin. A1c pending. 4. Likely rhabdomyolysis. CK is actually trending up today likely in response to sepsis picture as above. Continuing fluids and monitoring kidney function closely. 5. Hypocalcemia. Replete and monitoring. Checked phosphorus and magnesium which were within normal limits. 6. History of alcohol and multiple other substance abuses. Once he is extubated, we will need to monitor for alcohol withdrawal.
[2019-10-31] MEDS: HUMALOG SUBQ SCH (21:42)
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
[2019-11-01] MEDS: MAXIPIME 1 GM in NS 50 ML IV SCH ×2 (03:00→15:18)
[2019-11-01] MEDS: SODIUM BICARBONATE IV SCH ×3 (03:29→13:14)
[2019-11-01] MEDS: 1/2 NS IV SCH ×3 (03:29→13:14)
[2019-11-01] MEDS: DIPRIVAN 1% 1,000 MG/100 ML BOTTLE IV SCH ×2 (03:29→06:20)
[2019-11-01] MEDS: D5 IV SCH ×3 (03:29→13:14)
[2019-11-01 04:50] LABS: ALLEN TEST YES; BE 2.7 mmoll (-3.0-3.0); BLOOD TYPE ARTERIAL; HCO3-(ACT) 26.9 mmoll (20.0-26.0); METHB 1.1 % (0.0-1.5); O2(CT) 21.9 mL/dL (15.0-23.0); O2HB 94.2 % (95.0-99.0); PCO2(98.6) 27 mmHg (35-45); PO2(98.6) 68 mmHg (60-100); SAMPLE BLOOD; SAO2 95.9 % (95.0-100.0); SRATE 24 BPM; THB 16.6 g/dL (11.5-17.4); TVOL 650 mL; pH(98.6) 7.55 (7.35-7.45)
[2019-11-01 04:51] LABS: MODALITY VENTILATOR
[2019-11-01 04:56] LABS: HEMOGLOBIN A1C 6.9 % (4.8-6.0)
[2019-11-01 05:25] LABS: AGAP 14; ALBUMIN 2.3 g/dL (3.5-5.0); ALKALINE PHOSPHATASE 90 U/L (32-122); BUN 14 mg/dL (8-22); CALCIUM 6.9 mg/dL (8.8-10.2); CHLORIDE 105 mmol/L (98-107); COSMO 285; ESTIMATED GFR > 60; GLUCOSE 164 mg/dL (70-104); GOT 85 U/L (10-34); GPT 282 U/L (10-44); POTASSIUM 3.3 mmol/L (3.5-5.1); SODIUM 141 mmol/L (136-145); TCO2 22 mmol/L (25-35); TOTAL BILIRUBIN 0.29 mg/dL (0.20-1.00); TOTAL PROTEIN 4.5 g/dL (6.3-8.3)
[2019-11-01 05:41] LABS: BASO# 0.02 X1000 (0.0-0.2); BASO% 0.1 % (0.0-0.8); EOS# 0.01 X1000 (0.0-0.7); EOS% 0.1 % (0.0-10.0); HEMATOCRIT 38.4 % (42.0-52.0); HEMOGLOBIN 13.2 g/dL (14.0-18.0); IMM GRAN# 0.06 X1000 (0.0-0.04); IMM GRAN% 0.3 % (0.0-0.5); LYMPH# 3.53 X1000 (1.2-3.4); LYMPH% 18.5 % (20.5-51.1); MCH 30.6 PG (27-31); MCHC 34.4 g/dL (33-37); MCV 88.9 FL (81-99); MONO# 2.64 X1000 (0.11-0.59); MONO% 13.9 % (1.7-9.3); MPV 12.2 FL (7.4-10.4); NEUT# 12.77 X1000 (1.4-6.5); NEUT% 67.1 % (42.2-75.2); PLT 287 X1000 (130-400); RBC 4.32 XMIL (4.7-6.1); RDW 15.4 % (11.5-14.5); WBC 19.03 X1000 (4.8-10.8)
[2019-11-01] MEDS: ZYVOX 600 MG/D5W 600 MG/300 ML IVPB IV SCH ×2 (06:20→18:36)
[2019-11-01] MEDS: HUMALOG SUBQ SCH ×4 (06:21→21:03)
[2019-11-01 06:30] LABS: LYMPHS 19 % (21-51); MONO 11 % (1-9); SEGS 70 % (42-75)
--- NOTE | 2019-11-01 07:14 | Diag Imaging Result Doc PS360 ---
EXAM: CHEST-PORTABLE 11/01/2019 HISTORY: respiratory failure TECHNIQUE: AP portable at 0508 COMMENT: There is an endotracheal tube with its tip well above the leonora and an NG tube coiled in the fundus of the stomach. There are bilateral pleural effusions more so on the right than the left. There is hazy opacity in both lung bases consistent with pulmonary edema. Some platelike atelectasis is present in the lingula. IMPRESSION: Pulmonary edema and atelectasis. Bilateral pleural effusions. Electronically signed by Marcio Gamble 11/01/2019 7:12 AM
[2019-11-01] MEDS: PROTONIX IV SCH ×2 (11:10→21:03)
[2019-11-01] MEDS: SODIUM CHLORIDE 0.9% INJ SCH ×2 (11:11→21:03)
[2019-11-01] MEDS: DUONEB (A & A) INH PRN (11:23)
--- NOTE | 2019-11-01 11:40 | ECHO REPORT ---
ORDER DATE: 10/31/2019 INTERPRETING PHYSICIAN: Dr. Brian Awad. ECHOCARDIOGRAPHIC MEASUREMENTS: 1. Interventricular septum 0.9. 2. Left ventricular posterior wall 1.0. 3. Diastolic diameter 4.1. 4. Left atrium 3. 5. Aorta 3.3. SUMMARY OF THE 2-DIMENSIONAL IMAGING: Limited Study to Evaluate EF 1. Technically suboptimal study. Poor acoustic window. The patient is intubated. 2. Aortic valve leaflets are trileaflet. 3. Mitral valve was normal. 4. Normal left ventricular cavity size. Estimated ejection fraction of 40% to 45%. 5. Doppler could not be obtained. 6. There is no pericardial effusion. cc: MD EVI Arias
[2019-11-01] MEDS ORDERED: CALCIUM GLUCONATE 4.65 MEQ in NS 50 ML IV ONE (11:55)
[2019-11-01 12:04] LABS: ALLEN TEST YES; BE 2.7 mmoll (-3.0-3.0); BLOOD TYPE ARTERIAL; METHB 0.8 % (0.0-1.5); O2(CT) 19.4 mL/dL (15.0-23.0); O2HB 96.7 % (95.0-99.0); PCO2(98.6) 36 mmHg (35-45); PO2(98.6) 100 mmHg (60-100); SAMPLE BLOOD; SAO2 98.7 % (95.0-100.0); THB 14.2 g/dL (11.5-17.4); pH(98.6) 7.47 (7.35-7.45)
[2019-11-01 12:05] LABS: MODALITY VENTILATOR
--- NOTE | 2019-11-01 12:16 | PROGRESS NOTE ---
DATE: 11/01/2019 SUBJECTIVE: The patient has no major complaints. He is in the process of going through a spontaneous breathing trial. He is still a bit groggy, but his breathing is okay. OBJECTIVE: Vital Signs: Blood pressure 104/64, heart rate 98, respiratory rate 20, and temperature was 99.3 degrees. Cardiovascular: Regular rate and rhythm. Pulmonary: Bilateral breath sounds, clear to auscultation. Gastrointestinal: Soft, nontender, nondistended. Bowel sounds are positive. LABORATORY DATA: White count is 19, hemoglobin and hematocrit of 13 and 38, platelets 287,000. A pH of 7.55, pCO2 of 27, PaO2 of 68. A 4 lactate on the ventilator. Potassium 3.3, creatinine is down to 1, calcium is 6.9. AST and ALT down to 85 and 282. PROBLEM LIST: 1. Septic shock. He is off Levophed. He is on cefepime and Zyvox. Presumably the source is pneumonia versus drug effect. We will continue to monitor. He is off pressors. 2. Duodenitis. We will continue PPI. He may require an endoscopy. Dr. Jacobs has been consulted. He is on Protonix every 12 hours. 3. Acute kidney injury. These are also he is back to baseline and stable. 4. Diabetes. Appears to be stable. Blood sugars are improved. May be able to start metformin back when he is tolerating p.o. 5. Acute respiratory failure. We will continue to monitor. Most likely we will progress to extubation today, so we will continue to monitor. 6. Disposition. Extubation and we will continue to follow and see how we do. cc: Fredis Valiente MD
[2019-11-01] MEDS ORDERED: LASIX IV ONE (13:05)
[2019-11-01] MEDS: POTASSIUM CHLORIDE 20 MEQ/SWI 20 MEQ/100 ML IVPB IV SCH ×2 (13:13→15:13)
--- NOTE | 2019-11-01 13:52 | GASTROENTEROLOGY PROGRESS NOTE ---
DATE: 11/01/2019 SUBJECTIVE: Mr. Polo is a 64-year-old male. He is resting in bed, intubated and sedated, unable to assess patient. His daughters were at bedside. OBJECTIVE: Vital Signs: Temperature 99 degrees, pulse 113, respirations 33, blood pressure 140/80, oxygen saturation 98% on mechanical ventilator. The patient's weight is 167 pounds. BMI is 22.2 kg/m2. General: The patient is on ventilator, sedated. HEENT: Pale conjunctivae. No icterus. PERRL. Neck: Supple. Lungs: Clear to auscultation. Cardiovascular: The patient is tachycardic and tachypneic . Abdomen: Soft, mildly distended. Hypoactive bowel sounds in all 4 quadrants. Extremities: 1+ pitting edema right lower extremity and 1+ pedal plus in the right lower extremity. Patient has owsot-gbf-pruj amputation on the left extremity. Neurologic: He is sedated and on mechanical ventilator. LABORATORY STUDIES: WBC are 19.03, RBC 4.32, hemoglobin 13.2, hematocrit is 38.4, platelet count is 287,000. Sodium 141, potassium 3.3, chloride 105, carbon dioxide 22, anion gap 14, BUN 14, creatinine 1.0, glucose is 167, calcium is 6.9, total bilirubin is 0.29, AST 85, ALT is 282, alkaline phosphatase is 90. Albumin is 2.3. Plasma lactate is 3.6. The patient's chest x-ray today showed pulmonary edema and atelectasis, bilateral pleural effusion. IMPRESSION AND PLAN: 1. Duodenitis. 2. Septic shock. 3. Chronic obstructive pulmonary disease. 4. Diabetes. 5. Alcohol abuse 6. Tobacco abuse 7. Drug abuse-h/o IV drug abuse PLAN: Mr. Polo is a 64-year-old male with a history of alcohol abuse, tobacco abuse, and IV drug abuse. The patient is currently on a mechanical ventilator and sedated. GI has been following him for his duodenitis and ulcers. We have started the patient on Protonix 40 mg IV twice a day. The patient is currently receiving Maxipime and Zyvox antibiotics for his spetic shock. The patient's potassium is 3.3 and his calcium is 6.9. The patient is receiving IV potassium chloride 20 mEq at 50 mL/h and calcium gluconate 4.6 mEq at 120 mL/h per PCP. We plan to do an EGD once the patient's condition is stable . This plan was discussed with Dr. Kapadia. Please call us for any further questions or concerns. Dictated by MARILYN Chandler for Burton Kapadia MD cc: Burton Kapadia MD I have seen and examined the patient myself and I agree with the above plan of care. I have discussed the above plan of care with the patient's family at bedside and all questions were answered. Please call us with any further questions. MTDD
[2019-11-01] MEDS: TYLENOL PO PRN ×2 (15:10→22:42)
--- NOTE | 2019-11-01 15:17 | PULMONOLOGY PROGRESS NOTE ---
DATE: 11/01/2019 SUBJECTIVE: The patient is arousable off sedation. He will follow commands. OBJECTIVE: Vital Signs: The patient has been afebrile for the last 24 hours. Blood pressure 100/62, heart rate 100, respiratory rate 24, oxygen saturation 94%. HEENT: Pupils are equal and reactive. Oropharynx appears clear. Neck: Supple. Chest: Reveals rhonchi bilaterally. Cardiac: S1 and S2. Abdomen: Soft with diminished bowel sounds. Extremities: Reveal 1+ edema in the hands and feet. LABORATORIES: Chest x-ray reveals bilateral effusions, right greater than left. White blood count 19.03, hemoglobin 13.2, platelet count 287,000. Sputum is growing a gram-negative yosef. Arterial blood gas reveals a pH of 7.55, pCO2 of 27, pO2 of 68, with a lactate of 4. Echocardiogram reveals mild LV dysfunction with an EF of 40% to 45%, but no other significant abnormality listed. IMPRESSION: A 64-year-old with: 1. Acute hypoxic respiratory failure. 2. Pancreatitis. 3. Duodenitis. 4. Septic shock. 5. Altered mental status with improvement. 6. Remote history of splenectomy. 7. Nicotine addiction with ongoing tobacco use. DISCUSSION: A 64-year-old with problems outlined above. He has been successfully weaned off vasopressors. Blood pressure is improving, although he does have an ongoing mild to moderate lactic acidosis. He is awake, alert, and conversant. His inspiratory capacity on the ventilator is approaching 700 mL. RECOMMENDATIONS: 1. Continue current antibiotic regimen pending results of sputum culture. 2. Initiate spontaneous breathing trial to evaluate for extubation. 3. Encourage smoking cessation. TIME SPENT: The time spent in critical care management was 35 minutes. cc: Jun Negron MD
--- NOTE | 2019-11-01 15:24 | Diag Imaging Result Doc PS360 ---
US ABDOMEN-COMPLETE - 11/01/2019 INDICATION: elevated liver enzymes COMPARISON: CT from 10/30/2019 FINDINGS: The gallbladder is absent. The spleen is absent. The pancreas is obscured. The liver, and both kidneys are normal. No significant ascites. Common bile duct measures 5 mm. Aorta and IVC are mostly obscured. Main portal vein is patent. IMPRESSION: No significant abnormality. Electronically signed by Howie Hdz 11/01/2019 3:22 PM
[2019-11-01] MEDS: MORPHINE IV PRN ×2 (18:36→23:49)
[2019-11-02] MEDS: MAXIPIME 1 GM in NS 50 ML IV SCH ×2 (01:12→13:58)
[2019-11-02] MEDS: 1/2 NS IV SCH (03:10)
[2019-11-02] MEDS: D5 IV SCH (03:10)
[2019-11-02] MEDS: SODIUM BICARBONATE IV SCH (03:10)
[2019-11-02] MEDS: MORPHINE IV PRN ×2 (04:38→09:57)
[2019-11-02 05:22] LABS: ALLEN TEST YES; BE 6.6 mmoll (-3.0-3.0); BLOOD TYPE ARTERIAL; METHB 0.6 % (0.0-1.5); O2(CT) 18.6 mL/dL (15.0-23.0); O2HB 96.2 % (95.0-99.0); PCO2(98.6) 44 mmHg (35-45); PO2(98.6) 88 mmHg (60-100); SAMPLE BLOOD; SAO2 98.3 % (95.0-100.0); THB 13.7 g/dL (11.5-17.4); pH(98.6) 7.46 (7.35-7.45)
[2019-11-02 05:27] LABS: MODALITY CANNULA
[2019-11-02] MEDS: ZYVOX 600 MG/D5W 600 MG/300 ML IVPB IV SCH ×2 (06:00→18:42)
[2019-11-02] MEDS: HUMALOG SUBQ SCH ×4 (06:00→20:27)
[2019-11-02 06:46] LABS: BASO# 0.04 X1000 (0.0-0.2); BASO% 0.2 % (0.0-0.8); EOS# 0.12 X1000 (0.0-0.7); EOS% 0.6 % (0.0-10.0); HEMATOCRIT 39.6 % (42.0-52.0); HEMOGLOBIN 12.9 g/dL (14.0-18.0); IMM GRAN# 0.08 X1000 (0.0-0.04); IMM GRAN% 0.4 % (0.0-0.5); LYMPH# 4.26 X1000 (1.2-3.4); LYMPH% 22.2 % (20.5-51.1); MCH 30.1 PG (27-31); MCHC 32.6 g/dL (33-37); MCV 92.3 FL (81-99); MONO# 2.75 X1000 (0.11-0.59); MONO% 14.3 % (1.7-9.3); MPV 12.6 FL (7.4-10.4); NEUT# 11.98 X1000 (1.4-6.5); NEUT% 62.3 % (42.2-75.2); PLT 288 X1000 (130-400); RBC 4.29 XMIL (4.7-6.1); RDW 15.7 % (11.5-14.5); WBC 19.23 X1000 (4.8-10.8)
[2019-11-02 07:29] LABS: AGAP 10; ALB/GLOB RATIO 0.8; ALBUMIN 2.5 g/dL (3.5-5.0); ALKALINE PHOSPHATASE 108 U/L (32-122); BUN 10 mg/dL (8-22); CALCIUM 7.7 mg/dL (8.8-10.2); CHLORIDE 102 mmol/L (98-107); COSMO 278; CREATININE 0.8 mg/dL (0.7-1.2); ESTIMATED GFR > 60; GLUCOSE 96 mg/dL (70-104); GOT 62 U/L (10-34); GPT 232 U/L (10-44); POTASSIUM 3.7 mmol/L (3.5-5.1); SODIUM 140 mmol/L (136-145); TCO2 28 mmol/L (25-35); TOTAL BILIRUBIN 0.64 mg/dL (0.20-1.00); TOTAL PROTEIN 5.5 g/dL (6.3-8.3)
[2019-11-02 07:36] LABS: BANDS 2 % (0-1); LYMPHS 24 % (21-51); MONO 12 % (1-9); SEGS 60 % (42-75)
--- NOTE | 2019-11-02 07:37 | Diag Imaging Result Doc PS360 ---
EXAM: CHEST-PORTABLE 11/02/2019 HISTORY: respiratory failure TECHNIQUE: AP portable erect at 0538 COMMENT: The inspiration is suboptimal. There is platelike atelectasis in both lung bases. The hazy opacity present in the lung bases at the time the previous study of 11/01/2019 has improved. The endotracheal tube has been removed. IMPRESSION: Improved pulmonary edema. Bibasilar atelectasis. Electronically signed by Marcio Gamble 11/02/2019 7:34 AM
[2019-11-02] MEDS: PROTONIX IV SCH ×2 (11:00→21:43)
--- NOTE | 2019-11-02 12:27 | PROGRESS NOTE ---
DATE: 11/02/2019 SUBJECTIVE: He is definitely more awake and alert. OBJECTIVE: Vital Signs: Blood pressure 100/61, heart rate of 84, respiratory rate of 24, and temperature 100.1 degrees. Cardiovascular: Regular rate and rhythm. Pulmonary: Bilateral breath sounds diminished at the bases. GI: Soft, nontender, and nondistended. Bowel sounds are positive. LABORATORY DATA: White count still 19, hemoglobin and hematocrit 12 and 39, and platelets 288,000. A pH 7.46, pCO2 44, and PaO2 88. Basic was normal. PROBLEM LIST: 1. Acute hypoxic respiratory failure due to pneumonia overdose. He is off the vent. He seems to be doing okay. We are going to wean O2 as tolerated. 2. Septic shock associated with pneumonia and drug effect. He is off Levophed. Blood pressure is stable. Continue to monitor. 3. Duodenitis. He is on a proton pump inhibitor. Probably change that to p.o. soon. GI has been consulted. 4. Acute kidney injury that is also resolved. 5. Type 2 diabetes. We will continue to monitor his blood sugars. Resume his metformin. 6. Pneumonia. This will be day 2 of cefepime, and day 3 of linezolid. Continue to monitor. 7. IV drug use. We will get social work assistance with him. He does not claim to be suicidal, although his family describes that he is depressed so we will offer him rehab help if available. We had a discussion that at his age IV heroin use is a lethal combination, and we will continue to help him work through these issues. cc: Fredis Valiente MD
[2019-11-02] MEDS: NUBAIN IV PRN (19:33)
--- NOTE | 2019-11-02 22:44 | PULMONOLOGY PROGRESS NOTE ---
DATE: 11/02/2019 SUBJECTIVE: The patient is awake, alert and conversant. He is tolerating some p.o. intake. OBJECTIVE: Vital Signs: Maximum temperature in the last 24 hours is 100.1 degrees, blood pressure 114/59, heart rate 92, respiratory rate 28, oxygen saturation 96% on nasal cannula. HEENT: Pupils are equal and reactive. Oropharynx appears clear. Neck: Supple. Chest: Reveals rhonchi bilaterally. Cardiac: S1, S2. Abdomen: Soft. Extremities: Without edema. IMAGING: Chest x-ray reveals bibasilar infiltrates with decreased pulmonary edema. LABORATORY DATA: White blood count 19.23, hemoglobin 12.9, platelet count 288,000. Arterial blood gas reveals a pH of 7.46, pCO2 of 44, PO2 of 88. Sodium 140, potassium 3.7, chloride 102, bicarbonate 28, BUN 10, creatinine 0.8. MICROBIOLOGY: Reveals no new data. IMPRESSION: A 64-year-old with: 1. Acute hypoxemic respiratory failure. 2. Pancreatitis. 3. Duodenitis. 4. Septic shock. 5. Altered mental status. 6. Remote history of splenectomy. 7. Nicotine addiction with ongoing tobacco use. DISCUSSION: A 64-year-old with the problems outlined above. The patient is doing well off mechanical ventilation. His lactic acidosis has resolved. RECOMMENDATIONS: 1. Continue current antibiotic regimen. 2. Wean oxygen as tolerated. 3. Begin to mobilize as tolerated. 4. Anticipate transfer to the floor. cc: Jun Negron MD
--- NOTE | 2019-11-02 23:34 | PROVIDER PROGRESS NOTE ---
Progress Note S: O: Last Vital Signs Temp 97.8 F 11/02/19 22:59 Pulse 84 11/02/19 23:00 Resp 22 11/02/19 23:00 BP 103/59 11/02/19 22:59 Pulse Ox 96 11/02/19 23:00 Height 6 ft 1 in Weight 167 lb LABS: 11/02/19 11/02/19 11/02/19 04:40 04:50 04:50 WBC 19.23 H Hgb 12.9 L Plt Count 288 pH 7.46 H pCO2 44 pO2 88 Sodium 140 Potassium 3.7 Chloride 102 Carbon Dioxide 28 Anion Gap 10 BUN 10 Creatinine 0.8 Calcium 7.7 L Total Bilirubin 0.64 AST 62 H ALT 232 H Alkaline Phosphatase 108 Total Protein 5.5 L Albumin 2.5 L US ABDOMEN-COMPLETE - 11/01/2019 INDICATION: elevated liver enzymes COMPARISON: CT from 10/30/2019 FINDINGS: The gallbladder is absent. The spleen is absent. The pancreas is obscured. The liver, and both kidneys are normal. No significant ascites. Common bile duct measures 5 mm. Aorta and IVC are mostly obscured. Main portal vein is patent. IMPRESSION: No significant abnormality.
[2019-11-03] MEDS: NUBAIN IV PRN ×2 (00:27→05:48)
[2019-11-03] MEDS: MAXIPIME 1 GM in NS 50 ML IV SCH ×2 (02:28→13:42)
[2019-11-03 05:09] LABS: BASO# 0.11 X1000 (0.0-0.2); BASO% 0.6 % (0.0-0.8); EOS# 0.37 X1000 (0.0-0.7); EOS% 1.9 % (0.0-10.0); HEMATOCRIT 39.8 % (42.0-52.0); HEMOGLOBIN 13.1 g/dL (14.0-18.0); IMM GRAN# 0.08 X1000 (0.0-0.04); IMM GRAN% 0.4 % (0.0-0.5); LYMPH# 3.03 X1000 (1.2-3.4); LYMPH% 15.6 % (20.5-51.1); MCH 30.6 PG (27-31); MCHC 32.9 g/dL (33-37); MONO# 2.73 X1000 (0.11-0.59); MONO% 14.1 % (1.7-9.3); MPV 11.2 FL (7.4-10.4); NEUT# 13.05 X1000 (1.4-6.5); NEUT% 67.4 % (42.2-75.2); PLT 339 X1000 (130-400); RBC 4.28 XMIL (4.7-6.1); RDW 15.2 % (11.5-14.5); WBC 19.37 X1000 (4.8-10.8)
[2019-11-03 05:21] LABS: AGAP 8; ALB/GLOB RATIO 0.7; ALBUMIN 2.3 g/dL (3.5-5.0); ALKALINE PHOSPHATASE 95 U/L (32-122); BUN 10 mg/dL (8-22); CALCIUM 7.8 mg/dL (8.8-10.2); CHLORIDE 103 mmol/L (98-107); COSMO 275; CREATININE 0.7 mg/dL (0.7-1.2); ESTIMATED GFR > 60; GLUCOSE 129 mg/dL (70-104); GOT 37 U/L (10-34); GPT 180 U/L (10-44); POTASSIUM 3.9 mmol/L (3.5-5.1); SODIUM 137 mmol/L (136-145); TCO2 26 mmol/L (25-35); TOTAL BILIRUBIN 0.36 mg/dL (0.20-1.00); TOTAL PROTEIN 5.8 g/dL (6.3-8.3)
[2019-11-03] MEDS: ZYVOX 600 MG/D5W 600 MG/300 ML IVPB IV SCH ×2 (05:49→17:52)
[2019-11-03] MEDS: HUMALOG SUBQ SCH ×4 (07:12→20:31)
--- NOTE | 2019-11-03 07:33 | Diag Imaging Result Doc PS360 ---
EXAM: CHEST-PORTABLE INDICATION: respiratory failure TECHNIQUE: One view COMPARISON: 11/02/2019 FINDINGS: Lung volumes are low similar to the previous study. Bibasilar platelike atelectasis is approximately stable. There are likely bilateral small effusions that are approximately stable. No new consolidation is identified. Cardiac silhouette is stable. IMPRESSION: Essentially stable chest. Electronically signed by Matt Lopez 11/03/2019 7:31 AM
[2019-11-03] MEDS: SODIUM CHLORIDE 0.9% INJ SCH ×2 (09:14→20:30)
[2019-11-03] MEDS: PROTONIX IV SCH ×3 (09:14→21:46)
[2019-11-03] MEDS: DUONEB (A & A) INH PRN (11:26)
[2019-11-03] MEDS: TYLENOL PO PRN (11:36)
--- NOTE | 2019-11-03 11:45 | GASTROENTEROLOGY PROGRESS NOTE ---
DATE: 11/03/2019 SUBJECTIVE: Mr. Polo is a 64-year-old male. The patient is currently on 5 liters nasal cannula. He is sitting in bed having his breakfast and complained that he was not able to tolerate his breakfast well. OBJECTIVE: Vital Signs: Temperature 97.2 degrees, pulse is 78, respirations 18, blood pressure 107/61, oxygen saturation 96% on 5 L nasal cannula. Patient weight is 167 pounds. BMI is 22.0 kg/m. General: He is alert and oriented x2 and in no acute distress. HEENT: Pale conjunctivae. No icterus. PERRL. Neck: Supple. Lungs: Clear to auscultation. Cardiovascular: Regular rate and rhythm. Abdomen: Mildly distended, firm. Generalized tenderness noted. Hypoactive bowel sounds heard in all 4 quadrants. Extremities: The patient has a left [id number] amputation. Right extremity has 1+ pitting edema. Neurologic: Alert and oriented x2. LABORATORY DATA: WBCs are 19.37, RBC 4.28, hemoglobin 13.1, hematocrit 39.8, platelet count is 339,000. Sodium is 137, potassium 3.9, chloride 103, carbon dioxide 26, anion gap is 8, BUN is 10, creatinine is 0.7, glucose 129, calcium 7.8, total bilirubin is 0.36, AST is 37, ALT is 180, alkaline phosphatase is 95. IMAGING: Patient's chest x-ray today has shown stable chest. His abdominal ultrasound on 11/01/2019 showed no significant abnormality. IMPRESSION AND PLAN: - Abdominal pain - Duodenitis - Hypoxic respiratory failure - improving - Constipation - Septic shock - resolved - COPD - Polysubstance abuse PLAN: Mr. Polo is a 64-year-old male with a history of alcohol, tobacco, and IV drug abuse. GI has been following him for his duodenitis and ulcers. The patient is currently on Protonix 40 mg IV twice a day. The plan is to do an EGD tomorrow. We have discussed the risks, benefits, and alternatives of the procedure to the patient. The patient has acknowledged understanding of the plan of care. Further plan of care will be based on the EGD findings. This plan was discussed with Dr. Sidhu. Please call us for any further questions or concerns. Dictated by MARILYN Chandler for Herbert Sidhu MD Physician Attestation I have seen and examined the patient. I have discussed and reviewed the note by Sol SANDERS and agree with findings and plan as documented. EVI
[2019-11-03] MEDS: STADOL IV PRN ×2 (16:47→21:42)
--- NOTE | 2019-11-03 20:47 | PROGRESS NOTE ---
DATE: 11/03/2019 SUBJECTIVE: The patient has no major complaints. He is breathing a little bit better, although still looks very puny and weak. OBJECTIVE: Vital signs: Blood pressure is 114/70, heart rate of 88, respiratory rate of 28, temperature 98.4 degrees, 95% on 3.5 L. Cardiovascular: Regular rate and rhythm. Pulmonary: Bilateral breath sounds clear to auscultation. Gastrointestinal: Soft, nontender, nondistended. Bowel sounds are positive. LABORATORY DATA: White count 19, hemoglobin and hematocrit 13 and 39, platelets 339,000. PROBLEM LIST: 1. Acute hypoxic respiratory failure is stable off the ventilator. Continue to follow. Wean O2. 2. Septic shock. He seems to be doing okay off pressors. 3. Duodenitis. We will continue PPI. GI plans to scope tomorrow. 4. Acute kidney injury, seems to be doing okay from that standpoint. 5. Pneumonia. Day 3 of cefepime, day 4 of linezolid. Continue work on pulmonary toilet. 6. History of heroin abuse. We will provide some outpatient resources for him. DISPOSITION: Possibly discharge soon pending his improvement in his clinical status. cc: Fredis Valiente MD
[2019-11-03] MEDS ORDERED: LASIX IV ONE (23:20)
[2019-11-04] MEDS: STADOL IV PRN ×5 (02:52→20:23)
[2019-11-04] MEDS: MAXIPIME 1 GM in NS 50 ML IV SCH (02:52)
[2019-11-04] MEDS: ZYVOX 600 MG/D5W 600 MG/300 ML IVPB IV SCH ×2 (05:52→17:39)
[2019-11-04] MEDS: HUMALOG SUBQ SCH ×4 (06:15→20:25)
--- NOTE | 2019-11-04 06:56 | Diag Imaging Result Doc PS360 ---
CHEST-PORTABLE - 11/04/2019 INDICATION: respiratory failure COMPARISON: 11/03/2019 FINDINGS: Lung volumes remain severely low. Stable hazy infiltrates or atelectasis in the lung bases, nonspecific. Heart size remains normal. No significant pleural effusion. IMPRESSION: No change from prior. Electronically signed by Howie Hdz 11/04/2019 6:54 AM
--- NOTE | 2019-11-04 07:13 | PULMONOLOGY PROGRESS NOTE ---
DATE: 11/03/2019 SUBJECTIVE: The patient is awake, alert and conversant. He reports he feels better. OBJECTIVE: Vital Signs: The patient has been afebrile for the last 24 hours. Blood pressure 138/83, heart rate 79, respiratory rate 18, oxygen saturation 98%. HEENT: Pupils are equal and reactive. Oropharynx appears clear. Neck: Supple. Chest: Reveals crackles in the lung bases. Cardiac: S1, S2. Abdomen: Soft. Extremities: Without edema. LABORATORY DATA: Chest x-ray reveals shallow inspiration with probable small basilar effusions. IMPRESSION: A 64-year-old with: 1. Acute hypoxemic respiratory failure. 2. Duodenitis. 3. Pancreatitis. 4. Septic shock with resolution. 5. Altered mental status with resolution. 6. Remote history of splenectomy. 7. Nicotine addiction with ongoing tobacco use. 8. Heroin use. PLAN: 1. Continue current antibiotic regimen. 2. Small diuretic trial. 3. Anticipate EGD tomorrow. cc: Jun Negron MD
[2019-11-04 07:15] LABS: BASO# 0.09 X1000 (0.0-0.2); BASO% 0.4 % (0.0-0.8); EOS# 0.48 X1000 (0.0-0.7); EOS% 2.3 % (0.0-10.0); HEMATOCRIT 42.8 % (42.0-52.0); IMM GRAN# 0.13 X1000 (0.0-0.04); IMM GRAN% 0.6 % (0.0-0.5); LYMPH# 3.23 X1000 (1.2-3.4); LYMPH% 15.5 % (20.5-51.1); MCH 30.2 PG (27-31); MCHC 32.7 g/dL (33-37); MCV 92.4 FL (81-99); MONO# 2.49 X1000 (0.11-0.59); MONO% 11.9 % (1.7-9.3); MPV 11.5 FL (7.4-10.4); NEUT# 14.45 X1000 (1.4-6.5); NEUT% 69.3 % (42.2-75.2); PLT 444 X1000 (130-400); RBC 4.63 XMIL (4.7-6.1); RDW 14.9 % (11.5-14.5); WBC 20.87 X1000 (4.8-10.8)
[2019-11-04] MEDS ORDERED: DIPRIVAN 1% ONE (07:35)
[2019-11-04 07:36] LABS: AGAP 11; BUN 11 mg/dL (8-22); CALCIUM 8.9 mg/dL (8.8-10.2); CHLORIDE 100 mmol/L (98-107); COSMO 281; CREATININE 0.7 mg/dL (0.7-1.2); ESTIMATED GFR > 60; GLUCOSE 143 mg/dL (70-104); POTASSIUM 3.6 mmol/L (3.5-5.1); SODIUM 140 mmol/L (136-145); TCO2 29 mmol/L (25-35)
[2019-11-04] MEDS ORDERED: XYLOCAINE-MPF 2% ONE (07:36)
[2019-11-04 07:39] LABS: ALB/GLOB RATIO 0.9; ALBUMIN 2.9 g/dL (3.5-5.0); DIRECT BILIRUBIN 0.2 mg/dL (0.00-0.20); TOTAL BILIRUBIN 0.36 mg/dL (0.20-1.00); TOTAL PROTEIN 6.1 g/dL (6.3-8.3)
[2019-11-04] MEDS: DUONEB (A & A) INH PRN (07:47)
[2019-11-04 07:52] LABS: EOS 4 % (1-10); LYMPHS 8 % (21-51); MONO 14 % (1-9); SEGS 70 % (42-75)
--- NOTE | 2019-11-04 08:35 | ENDOSCOPY OPERATIVE NOTE ---
[facility] ENDOSCOPY OPERATIVE NOTE , EGD PROCEDURE REPORT EXAM DATE: 11/04/2019 PATIENT NAME: Maynor Polo MR#: [id number] BIRTHDATE: 1955 ATTENDING: Burton Kapadia MD STATUS: inpatient MAILROOM ASSISTANT: Kimberley Arrington and Justino Cash INDICATIONS: The patient is a 64 yr old male here for an EGD due to Abnormal CT scan showing Duodeni tis, H/o PUD, Sepsis, IVDA, alcohol and tobacco abuse. PROCEDURE PERFORMED: EGD, diagnostic MEDICATIONS: Per Anesthesia ESTIMATED BLOOD LOSS: None CONSENT: The patient understands the risks and benefits of the procedure and understands that these r isks include, but are not limited to: sedation, allergic reaction, infection, perforation and/or bleeding. Alternative means of evaluation and treatment include, among others: physical exam, x-rays, and/or surgical intervention. The patient elects to proceed with this endoscopic procedure. DESCRIPTION OF PROCEDURE: During pre-op preparation period all mechanical and medical equipment was c hecked for proper function. Hand hygiene and appropriate measures for infection prevention was taken. After the risks, benefits and alternatives of the procedure were thoroughly explained, Informed consent was verified, confirmed and timeout was successfully executed by the treatment team. The patient was anesthetized with topical anesthesia and the [id number] ([id number]) endoscope was introduced through the mouth and advanced to the third portion of the duodenu m. Retroflexion was performed in the stomach and revealed no abnormalities. The gastroscope was then slowly withdraw n and removed. The patient's toleration of the procedure was good. ESOPHAGUS: The mucosa of the esophagus appeared normal. Z line at 44 cms. STOMACH: Acute gastritis (inflammation) was found in the gastric antrum. Retained food in the stoma ch was noted. DUODENUM: Mild duodenal inflammation was found in the duodenal bulb. The duodenal mucosa showed no abnormalities in the 2nd part of the duodenum and 3rd part duodenum. ADVERSE EVENTS: There were no complications. IMPRESSIONS: 1. The mucosa of the esophagus appeared normal 2. Z line at 44 cms 3. Acute gastritis (inflammation) was found in the gastric antrum 4. Retained food in the stomach was noted 5. Duodenal inflammation was found in the duodenal bulb 6. The duodenal mucosa showed no abnormalities in the 2nd part of the duodenum and 3rd part duodenum RECOMMENDATIONS: 1. Resume regular diet 2. Start anti-reflux diet. 3. PPI once daily for 90 days. Quit IV Drugs, Alcohol and tobacco REPEAT EXAM: Burton Kapadia MD eSigned: Burton Kapadia MD 11/04/2019 8:34 AM CC: CPT CODES: 33065 Upper gastrointestinal endoscopy including esophagus, stomach, and either the du odenum and/or jejunum as appropriate; diagnostic, with or without collection of specimen(s) by brushing or washing (separate procedure) ICD CODES: The ICD and CPT codes recommended by this software are interpretations from the data that the [facility] staff has captured with the software. The verification of the translation of this report to the ICD and CPT co joyce and modifiers is the sole responsibility of the health care institution and practicing physician where this report was generated. [employer] will not be held responsible for the validity of the ICD and CPT codes i ncluded on this report. AMA assumes no liability for data contained or not contained herein. CPT is a registered tra demark of the [employer] [place] [employer]. PATIENT NAME: Maynor Polo MR#: [id number]
[2019-11-04] MEDS: SODIUM CHLORIDE 0.9% INJ SCH ×2 (10:42→23:23)
[2019-11-04] MEDS: PROTONIX IV SCH ×2 (10:42→23:23)
[2019-11-04] MEDS ORDERED: MAXIPIME ONE (12:07)
--- NOTE | 2019-11-04 14:55 | PROGRESS NOTE ---
DATE: 11/04/2019 SUBJECTIVE: Patient has no major complaints. OBJECTIVE: Vital Signs: Blood pressure is 120/74, heart rate of 87, respiratory 15, temperature 98 degrees, satting 96% on 3 L. Cardiovascular: Regular rate and rhythm. Pulmonary: Occasional rhonchi. No rales, no wheezing. GI: Soft, nontender, nondistended. Bowel sounds are positive. PROBLEM LIST: 1. Acute respiratory failure due to pneumonia. He seems to be doing okay, overall improving. Still has a very high white count, which I do not have a great explanation for. We will continue breathing treatments, pulmonary toilet and follow. He still seems fairly puny and weak, debilitated. 2. Septic shock is resolved. 3. Duodenitis. Esophagogastroduodenoscopy showed gastritis, duodenitis, retained food. He is on a proton pump inhibitor. We will continue that for now, possibly change him to oral soon. 4. Acute kidney injury is resolved. 5. Pneumonia, lower lobes bilateral. He is on day 4 of cefepime, but I am going to increase it to 2 g q. 12 hours because his kidney functions intact and linezolid, and we will follow. 6. History of heroin abuse. We will continue to monitor. DISPOSITION: We need to start mobilizing him. Take out his Cheng, start walking. I got PT involved. We will see how he does and due for chest x-ray tomorrow. cc: Fredis Valiente MD
[2019-11-04] MEDS: DUONEB (A & A) INH SCH ×2 (15:57→22:02)
[2019-11-04] MEDS: MAXIPIME 2 GM/NS 2 GM/100 ML IVPB IV SCH (17:39)
[2019-11-05] MEDS: STADOL IV PRN ×6 (00:57→21:36)
--- NOTE | 2019-11-05 01:03 | PULMONOLOGY PROGRESS NOTE ---
DATE: 11/04/2019 SUBJECTIVE: No complaints. OBJECTIVE: Vital signs are stable. Afebrile. HEENT: Pupils equal and reactive. Oropharynx is clear. Chest slightly shallow breath sounds but clear to auscultation and percussion. Abdomen: Soft, good bowel sounds all 4 quadrants Extremities: Without edema LABORATORIES: Chest x-ray reveals shallow lung boggs with faint atelectasis in the bases. Endoscopy revealed acute gastritis, duodenitis. White blood count 20,000, hemoglobin 14.0 thousand, platelet count 444,000. IMPRESSION: 1. A 64-year-old with acute hypoxemic respiratory failure. He is doing well on 2 L per nasal cannula. 2. Duodenitis. 3. Pancreatitis. 4. Septic shock and altered mental status on presentation with subsequent resolutions. 5. Remote history of splenectomy. This likely partially responsible for his leukocytosis. 6. Nicotine addiction. 7. Heroin use. PLAN: 1. Continue current antibiotic regimen. 2. Wean oxygen as tolerated. 3. No additional recommendations. Pulmonary will sign off but will be available if needed. cc: Jun Negron MD MTDD
[2019-11-05] MEDS: ZYVOX 600 MG/D5W 600 MG/300 ML IVPB IV SCH (05:29)
[2019-11-05] MEDS: MAXIPIME 2 GM/NS 2 GM/100 ML IVPB IV SCH (05:29)
[2019-11-05 06:06] LABS: BASO% 0.5 % (0.0-0.8); EOS# 0.32 X1000 (0.0-0.7); EOS% 1.5 % (0.0-10.0); HEMATOCRIT 41.7 % (42.0-52.0); HEMOGLOBIN 13.7 g/dL (14.0-18.0); IMM GRAN# 0.22 X1000 (0.0-0.04); LYMPH# 3.81 X1000 (1.2-3.4); LYMPH% 17.6 % (20.5-51.1); MCHC 32.9 g/dL (33-37); MCV 91.4 FL (81-99); MONO# 3.08 X1000 (0.11-0.59); MONO% 14.2 % (1.7-9.3); MPV 10.9 FL (7.4-10.4); NEUT# 14.12 X1000 (1.4-6.5); NEUT% 65.2 % (42.2-75.2); PLT 486 X1000 (130-400); RBC 4.56 XMIL (4.7-6.1); RDW 14.5 % (11.5-14.5); WBC 21.65 X1000 (4.8-10.8)
--- NOTE | 2019-11-05 06:29 | Diag Imaging Result Doc PS360 ---
EXAM: CHEST-PORTABLE HISTORY: respiratory failure TECHNIQUE: Single view COMPARISON: 11/04/2019 FINDINGS: Poor inspiratory effort. There are increased interstitial markings believed to be a combination of atelectasis and mild pulmonary edema. No cardiomegaly. Tiny left effusion. IMPRESSION: No interval improvement Electronically signed by Abdullahi Ortega 11/05/2019 6:27 AM
[2019-11-05 06:32] LABS: AGAP 10; BUN 12 mg/dL (8-22); CALCIUM 8.9 mg/dL (8.8-10.2); CHLORIDE 99 mmol/L (98-107); COSMO 281; CREATININE 0.7 mg/dL (0.7-1.2); ESTIMATED GFR > 60; GLUCOSE 162 mg/dL (70-104); POTASSIUM 3.8 mmol/L (3.5-5.1); SODIUM 139 mmol/L (136-145); TCO2 30 mmol/L (25-35)
[2019-11-05] MEDS: HUMALOG SUBQ SCH ×4 (06:34→21:38)
[2019-11-05 07:39] LABS: BASO 1 % (0-1); EOS 1 % (1-10); LYMPHS 18 % (21-51); MONO 7 % (1-9); NRBC 1 % (0-0); SEGS 73 % (42-75)
[2019-11-05] MEDS: DUONEB (A & A) INH SCH ×3 (09:04→22:56)
[2019-11-05] MEDS ORDERED: XANAX PO PRN (11:10)
[2019-11-05] MEDS: CELEXA PO SCH (11:49)
[2019-11-05] MEDS: PROTONIX IV SCH ×2 (11:50→22:31)
--- NOTE | 2019-11-05 13:21 | Diag Imaging Result Doc PS360 ---
EXAM: CT ABD/PELVIS W/PO AND IV CON 11/05/2019 HISTORY: leukocytosis TECHNIQUE: This exam was performed using automated exposure control, adjustment of mA or kV according to patient size, and/or use of iterative reconstruction technique. COMMENT: The current study is compared with the previous examination of 10/30/2019. There are atelectatic changes present in both lung bases similar in appearance to the previous study. There is a small amount of pleural fluid bilaterally more so on the right than the left. The ascites which was present previously particularly in the right subphrenic space has resolved. There is an abnormal phlegmonous-appearing fluid collection present anterior to the body and head of the pancreas and adjacent to the lesser curvature of the stomach. This is somewhat larger in extent and more circumscribed than on the previous examination. The NG tube has been removed. There is still some mucosal thickening and fluid surrounding the second portion of the duodenum. There are prominent mesenteric nodes. The aorta is not distended. The possibility of necrosis in the portions of the pancreas directly adjacent to the fluid collection particularly around image 52 of the portal venous series cannot be entirely excluded, however the remainder of the pancreas does not appear to be necrotic. The adrenal glands are within normal limits. The spleen has apparently been previously resected. The kidneys are without evidence of hydronephrosis or mass. There is no evidence of bowel obstruction. Pelvis: The appendix is normal in appearance. There is a fairly large amount of stool in the rectosigmoid colon. The urinary bladder is not distended. There is no evidence of free fluid. There is a bone island in the ischium on the right. There is no evidence of acute bony abnormality. IMPRESSION: 1. Bibasilar atelectasis. 2. Improved ascites. Small bilateral pleural effusions. 3. Organizing peripancreatic fluid collection (pseudocyst.) This is presumably a sequela of acute pancreatitis. 4. Constipation. Electronically signed by Marcio Gamble 11/05/2019 1:18 PM
--- NOTE | 2019-11-05 13:42 | GASTROENTEROLOGY PROGRESS NOTE ---
DATE: 11/05/2019 SUBJECTIVE: Mr. Polo is a 64-year-old male. He is sitting on the chair. The patient has denied any nausea or vomiting, but he is complaining of abdominal pain in the epigastric area. OBJECTIVE: Vital Signs: Temperature 98.2, pulse 96, respirations 18, blood pressure 1/34, and oxygen saturation 96% on room air. The patient's weight is 166 pounds. BMI is 21.4 kg/meter sq. General: He is alert and oriented x3 and in no acute distress. HEENT: Pale conjunctivae. No icterus. BESS. Lungs: Clear to auscultation. Cardiovascular: Patient is tachycardic. Abdomen: Mildly distended and firm. Abdominal tenderness in the upper quadrant. Hypoactive bowel sounds heard in all four quadrants. Extremities: Patient has a left vrpur-vpm-[id number] amputation. Right extremity has 1+ pitting edema. Neurologic: Alert and oriented x3. LABORATORY DATA: WBCs 21.65, RBC is 4.56, hemoglobin 13.7, hematocrit 41.7, and platelet count is 486,000. Sodium 139, potassium 3.8, chloride 99, carbon dioxide 13, anion gap 10, BUN 12, creatinine 0.7, and glucose 162. Calcium is 8.9. Lipase is 84. The patient's chest x-ray has shown no interval improvement. IMPRESSION AND PLAN: Abdominal pain Duodenitis Hypoxic respiratory failure - improving Gastritis Septic shock - resolved COPD Polysubstance abuse PLAN: Mr. Polo is a 64-year-old male with a history of alcohol abuse, tobacco abuse, and IV drug abuse. GI is following him for his duodenitis and ulcers. We did an EGD yesterday, and the findings showed mucosa of the esophagus was normal. Acute gastritis was found in the gastric antrum. Retained food in the stomach. Duodenal inflammation in the duodenal bulb. The patient has been advised to have an anti-reflux diet. We will continue his PPIs twice a day and then continue for 3 months. The patient has been counseled on giving up alcohol, IV drug use, and tobacco use. The patient has acknowledged an understanding of the instructions. We will continue to monitor the patient, and follow the plan of care per PCP. This plan was discussed with Dr. Sidhu. Please call us for any further questions or concerns. Dictated by MARILYN Chandler for Herbert Sidhu MD [facility] HOSPITALAvani
[2019-11-05] MEDS ORDERED: VANCOMYCIN IV PER PHARMACY MISC SCH (13:45)
[2019-11-05] MEDS: MERREM 1 GM in NS 50 ML IV SCH ×2 (13:48→21:37)
[2019-11-05] MEDS: MIRALAX PO SCH (14:32)
[2019-11-05] MEDS: LACTULOSE PO SCH ×2 (14:32→21:37)
[2019-11-05] MEDS ORDERED: VANCOMYCIN 2,000 MG in NS 500 ML IV ONE (16:00)
--- NOTE | 2019-11-05 18:34 | PROGRESS NOTE ---
DATE: 11/05/2019 SUBJECTIVE: The patient is complaining of abdominal pain. OBJECTIVE: Vital signs: Blood pressure 134/78, heart rate 96, respiratory 18, temperature 98.2 degrees, 96%on room air. Cardiovascular: Regular rate and rhythm. Pulmonary: Bilateral breath sounds. Clear to auscultation. GI: Soft, nontender, and nondistended. Bowel sounds are positive. LABORATORY DATA: White count is still very high at 21,000, hemoglobin and hematocrit 13 and 41, platelets 46,000. Basic was normal. Lipase is up a hair at 84, but improved. PROBLEM LIST: 1. Acute respiratory failure due to Escherichia coli pneumonia. He is improving. He is on room air, seems to be doing okay from that standpoint. 2. Duodenitis. He is on a proton pump inhibitor. We will continue to follow. 3. Acute pancreatitis. I think perhaps that is getting better, but I am also concerned that it may be contributing to his white count. CT today shows a fairly large area that is organizing into a pseudocyst. I do not know if this will need to be drained. Typically, too soon in the order of treatment for a pseudocyst, but with his persistently high white count, I am not sure if it may be infected. I have changed his antibiotics. He has a history of intravenous drug use, but his blood cultures have been clear, so it is unlikely that he is bacteremic, but I will appreciate getting GI's opinion on that. 4. Leukocytosis. Again, unclear source, perhaps pancreatitis. His pneumonia is resolved. It grew out Escherichia coli per sputum and he has completed a course for that, so his white count should be coming down, but in any case we will continue to follow. DISPOSITION: Pending clinical status. I think he is stable for the floor. We will look at rehab planning. cc: Fredis Valiente MD
[2019-11-05] MEDS: XANAX PO PRN (21:37)
[2019-11-05] MEDS: LYRICA PO SCH (21:37)
[2019-11-05] MEDS: SODIUM CHLORIDE 0.9% INJ SCH (22:31)
[2019-11-06] MEDS: VANCOMYCIN 1,600 MG in NS 250 ML IV SCH ×2 (03:57→17:29)
[2019-11-06] MEDS: STADOL IV PRN ×4 (05:52→22:24)
[2019-11-06] MEDS: MERREM 1 GM in NS 50 ML IV SCH ×3 (05:53→22:25)
[2019-11-06] MEDS: HUMALOG SUBQ SCH ×4 (06:15→20:45)
[2019-11-06 07:22] LABS: BASO# 0.09 X1000 (0.0-0.2); BASO% 0.5 % (0.0-0.8); EOS# 0.57 X1000 (0.0-0.7); EOS% 3.1 % (0.0-10.0); HEMATOCRIT 40.9 % (42.0-52.0); HEMOGLOBIN 13.2 g/dL (14.0-18.0); IMM GRAN# 0.29 X1000 (0.0-0.04); IMM GRAN% 1.6 % (0.0-0.5); LYMPH# 3.56 X1000 (1.2-3.4); LYMPH% 19.6 % (20.5-51.1); MCH 29.7 PG (27-31); MCHC 32.3 g/dL (33-37); MCV 92.1 FL (81-99); MONO# 3.31 X1000 (0.11-0.59); MONO% 18.2 % (1.7-9.3); NEUT# 10.34 X1000 (1.4-6.5); PLT 530 X1000 (130-400); RBC 4.44 XMIL (4.7-6.1); RDW 14.7 % (11.5-14.5); WBC 18.16 X1000 (4.8-10.8)
--- NOTE | 2019-11-06 07:36 | Diag Imaging Result Doc PS360 ---
EXAM: CHEST-PORTABLE 11/06/2019 HISTORY: respiratory failure TECHNIQUE: Erect AP portable at 0629 COMMENT: There are platelike atelectatic opacities present particularly in the left upper lobe. This has diminished since 11/05/2018. IMPRESSION: Improved atelectasis. Electronically signed by Marcio Gamble 11/06/2019 7:34 AM
[2019-11-06 07:40] LABS: AGAP 10; BUN 10 mg/dL (8-22); CALCIUM 8.6 mg/dL (8.8-10.2); CHLORIDE 99 mmol/L (98-107); COSMO 275; CREATININE 0.5 mg/dL (0.7-1.2); ESTIMATED GFR > 60; GLUCOSE 109 mg/dL (70-104); SODIUM 138 mmol/L (136-145); TCO2 29 mmol/L (25-35)
[2019-11-06] MEDS: DUONEB (A & A) INH SCH ×4 (08:30→23:26)
[2019-11-06] MEDS: LACTULOSE PO SCH ×2 (09:45→20:45)
[2019-11-06] MEDS: CELEXA PO SCH (09:45)
[2019-11-06] MEDS: MIRALAX PO SCH (09:45)
[2019-11-06] MEDS: LYRICA PO SCH ×2 (09:45→20:45)
[2019-11-06] MEDS: XANAX PO PRN ×2 (12:28→22:28)
[2019-11-06] MEDS: REVIA PO SCH (12:30)
[2019-11-06] MEDS: PROTONIX IV SCH ×2 (14:36→22:25)
--- NOTE | 2019-11-06 16:03 | PROGRESS NOTE ---
DATE: 11/06/2019 SUBJECTIVE: The patient has no complaints. He looks a little more sedated than usual. OBJECTIVE: Blood pressure 126/71, heart rate 96, respiratory rate 18, temperature 97.2 degrees, 96% on room air.Cardiovascular: Regular rate and rhythm. Pulmonary: Bilateral breath sounds clear to auscultation. GI: Soft, nontender, nondistended. Bowel sounds are positive. LABORATORY DATA: White count is 18, hemoglobin and hematocrit 13 and 40, platelets 530,000. Basic was normal today. Chest x-ray shows some atelectasis. PROBLEM LIST: 1. Acute respiratory failure. He seems to be doing okay. He is on room air, doing well. 2. Duodenitis, which may be secondary to his pancreatitis. He is on a proton pump inhibitor. 3. Acute pancreatitis due to alcohol. He has no gallbladder. He reports drinking up to 8 beers a day prior to admission. He has not had any withdrawal but he was on the ventilator. He has a, to me, fairly sizable pseudocyst that is organizing but his pancreatitis was just diagnosed on the and we got a repeat scan yesterday because his white count was not coming down and it looks like he does have a pseudocyst. 4. Leukocytosis pneumonia. He is on meropenem and he seems to be improving. Again, typically pseudocysts are not infectious or not infected, but I really do not know. This thing measures about 4.9 cm maybe and so it is still not large enough to drain, but I do not know if it does not explain his white count. So, I will probably get an ID consult tomorrow, although his white count is coming down. He is on again meropenem just to cover for gut and vancomycin. He has a history of MRSA in his blood but his blood cultures have been negative here so I do not think that is an active issue, so we will see how things look. cc: Fredis Valiente MD
--- NOTE | 2019-11-06 18:38 | GASTROENTEROLOGY PROGRESS NOTE ---
DATE: 11/06/2019 Dr. Valiente. SUBJECTIVE: Patient resting in bed. He is feeling better. He has some abdominal pain which is improving. He denies any nausea, vomiting. He denies any blood in the stools. He had 1 bowel movement yesterday. VITALS: Temperature of 97.2 degrees, pulse of 96, respiratory 18, blood pressure 126/71, saturating 96 room air, body weight of 167 pounds, BMI 22 kg m. General appearance: Patient lying in bed in no acute distress. HEENT: No pallor, no icterus. Pupils equal, reactive to light. Neck: Supple. Abdomen: Discomfort in the epigastrium. No rebound, no guarding. Extremities: No cyanosis, clubbing. Neuro: Alert, awake, oriented X3. LABS: Hemoglobin and hematocrit is 13.2 and 40.9, white count of 18.1, platelet count 530,000. Sodium 130, potassium 4, chloride 99, bicarb 29, anion 10, BUN of 10, creatinine glucose of 109, calcium 8.6 and his lipase was 84 yesterday. His chest x-ray done today showed improved atelectasis. There are platelike atelectatic opacities in the left upper lobe, this has diminished since 11/05/2018. Impression and Plan 1. Abdominal pain improving. 2. Hypoxic respiratory failure improving. 3. Left upper lobe atelectatic opacities improving. 4. Duodenitis. 5. Gastritis. 6. Septic shock resolved. 7. Chronic obstructive pulmonary disease. 8. Polysubstance abuse. 9. Pancreatic pseudocyst seen on CT scan. 10. Constipation. RECOMMENDATIONS: 1. The patient was counseled to quit using alcohol completely, this is likely the cause of patient's pancreatitis and pancreatic pseudocyst. He will continue to drink plenty of fluids, he will continue low-fat diet. He will come back in [address] scan to evaluate for resolution of pancreatic pseudocyst. Patient has constipation based on recent CT scan. He will continue lactulose 30 mL p.o. b.i.d., MiraLAX once daily, patient continue Protonix twice daily for gastritis duodenitis. 2. The patient did have some retained food in the stomach which could be in the setting of recent pancreatitis, hopefully with improvement he will regain his gastric motility back. 3. Diabetes control with Humalog sliding scale. 4. Chronic obstructive pulmonary disease management with albuterol ipratropium inhaler nebulizer treatment. 5. Patient also counseled to quit tobacco and IV drug abuse. The patient follows in the clinic in 3 months of discharge. That time will plan to do a repeat CT scan to document resolution of the pancreatic pseudocyst. The above plans with the patient and all questions answered. We will sign off at this time. Please call with any further questions. cc: Fredis Valiente MD MTDD
[2019-11-06] MEDS: SODIUM CHLORIDE 0.9% INJ SCH (22:25)
[2019-11-07] MEDS: VANCOMYCIN 1,600 MG in NS 250 ML IV SCH ×2 (03:42→16:21)
[2019-11-07] MEDS: STADOL IV PRN ×5 (03:46→22:35)
[2019-11-07] MEDS: MERREM 1 GM in NS 50 ML IV SCH ×3 (05:59→21:06)
[2019-11-07] MEDS: HUMALOG SUBQ SCH ×4 (06:01→21:08)
[2019-11-07 06:51] LABS: AGAP 10; BUN 8 mg/dL (8-22); CALCIUM 8.5 mg/dL (8.8-10.2); CHLORIDE 100 mmol/L (98-107); COSMO 275; CREATININE 0.6 mg/dL (0.7-1.2); ESTIMATED GFR > 60; GLUCOSE 113 mg/dL (70-104); POTASSIUM 3.8 mmol/L (3.5-5.1); SODIUM 138 mmol/L (136-145); TCO2 28 mmol/L (25-35)
[2019-11-07 06:52] LABS: ALB/GLOB RATIO 0.8; ALBUMIN 2.8 g/dL (3.5-5.0); DIRECT BILIRUBIN 0.1 mg/dL (0.00-0.20); TOTAL BILIRUBIN 0.27 mg/dL (0.20-1.00); TOTAL PROTEIN 6.3 g/dL (6.3-8.3)
[2019-11-07 07:28] LABS: BASO# 0.16 X1000 (0.0-0.2); BASO% 1.1 % (0.0-0.8); EOS% 3.5 % (0.0-10.0); HEMATOCRIT 40.3 % (42.0-52.0); HEMOGLOBIN 13.1 g/dL (14.0-18.0); IMM GRAN# 0.17 X1000 (0.0-0.04); IMM GRAN% 1.2 % (0.0-0.5); LYMPH# 4.05 X1000 (1.2-3.4); LYMPH% 28.1 % (20.5-51.1); MCHC 32.5 g/dL (33-37); MCV 92.2 FL (81-99); MONO# 2.23 X1000 (0.11-0.59); MONO% 15.5 % (1.7-9.3); MPV 10.7 FL (7.4-10.4); NEUT# 7.28 X1000 (1.4-6.5); NEUT% 50.6 % (42.2-75.2); PLT 563 X1000 (130-400); RBC 4.37 XMIL (4.7-6.1); RDW 14.8 % (11.5-14.5); WBC 14.39 X1000 (4.8-10.8)
--- NOTE | 2019-11-07 07:34 | Diag Imaging Result Doc PS360 ---
EXAM: CHEST-PORTABLE 11/07/2019 HISTORY: respiratory failure TECHNIQUE: Erect AP portable at 0613 COMMENT: There are platelike atelectatic changes present in the mid and lower left lung. There is some fluid in the minor fissure on the right. The latter finding is more prominently present than on 11/06/2019. There is also slightly worsened atelectasis in the left lower lobe. The right lower lobe is somewhat clearer however. IMPRESSION: Waxing and waning atelectatic changes. Small right pleural effusion. Electronically signed by Marcio aGmble 11/07/2019 7:31 AM
[2019-11-07] MEDS: LYRICA PO SCH ×2 (08:57→22:44)
[2019-11-07] MEDS: REVIA PO SCH (08:58)
[2019-11-07] MEDS: LACTULOSE PO SCH ×2 (08:58→21:07)
[2019-11-07] MEDS: CELEXA PO SCH (08:58)
[2019-11-07] MEDS: MIRALAX PO SCH (08:58)
[2019-11-07 09:07] LABS: ATYPICAL LYMPH 2 %; LYMPHS 34 % (21-51); MONO 10 % (1-9); SEGS 54 % (42-75)
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
[2019-11-07] MEDS: DUONEB (A & A) INH SCH ×4 (10:00→22:48)
[2019-11-07] MEDS: XANAX PO PRN ×2 (10:04→21:06)
[2019-11-07] MEDS: PROTONIX IV SCH ×2 (13:29→22:45)
--- NOTE | 2019-11-07 16:48 | PROGRESS NOTE ---
DATE: 11/07/2019 SUBJECTIVE: The patient is still having difficulty eating. We discussed he has pancreatitis and he has an organizing pseudocyst related to the alcohol use previously. We are going to go ahead and advance his diet a bit. He is tolerating clears. OBJECTIVE: Vital signs: Blood pressure 122/73, heart rate of 81, respiratory rate 18, temperature 98 degrees, 93% on room air. Cardiovascular: Regular rate and rhythm. Pulmonary: Bilateral breath sounds. Clear to auscultation. GI: Soft, nontender, nondistended. Bowel sounds are positive. LABORATORY DATA: White count 14, hemoglobin and hematocrit 13 and 40, platelets 563,000. Basic was normal. Lipase is down to 66. PROBLEM LIST: 1. Acute respiratory failure due to overdose and aspiration event. He seems to be doing okay. 2. Duodenitis. He is on PPI. 3. Acute pancreatitis due to alcohol with an organizing pseudocyst. It looks like it is about 4 cm, so it is not quite large enough to drain. He seems to be doing better though. I am going to go ahead and advance his diet. Dr. Kapadia's note from yesterday says he will need to get a repeat CT scan in 3 months. 4. Leukocytosis. That seems to be improving. Dr. Artis has evaluated the patient and feels like we can probably switch him to oral antibiotics. He is on meropenem and vancomycin and will change him to Levaquin at discharge. So, I greatly appreciate his input there. DISPOSITION: I think he should be ready to go soon. He wants to look at rehab options, as in inpatient rehab options. I am not sure where we are with that process. cc: Fredis Valiente MD
[2019-11-08] MEDS: STADOL IV PRN ×4 (03:17→17:18)
[2019-11-08] MEDS: VANCOMYCIN 1,600 MG in NS 250 ML IV SCH ×2 (03:19→17:19)
[2019-11-08] MEDS: MERREM 1 GM in NS 50 ML IV SCH ×3 (06:15→22:38)
[2019-11-08] MEDS: HUMALOG SUBQ SCH ×4 (06:28→20:24)
--- NOTE | 2019-11-08 06:28 | Diag Imaging Result Doc PS360 ---
CHEST-PORTABLE - 11/08/2019 INDICATION: respiratory failure COMPARISON: 11/07/2019 FINDINGS: Stable multifocal linear atelectasis bilaterally. Stable blunting of the left lateral costophrenic angle. Heart size and pulmonary vascularity remain normal. No new infiltrates. IMPRESSION: No change from prior. Electronically signed by Howie Hdz 11/08/2019 6:25 AM
--- NOTE | 2019-11-08 06:32 | INFECTIOUS DISEASE PROGRESS NO ---
DATE: 11/08/2019 PRESENT ILLNESS: The patient has an infected pancreatic pseudocyst, which I think is causing his leukocytosis. MEDICATIONS: The patient is on vancomycin and meropenem now for 3 days. PHYSICAL EXAMINATION: Vital Signs: Temperature 98.2 degrees, pulse 77, respirations 18, and blood pressure 126/81. General: This is a chronically ill-appearing middle- aged male. He is in no acute distress at this time. Head/eyes/ears/nose/throat: He can hear my spoken words and see near objects. There is no white coating of the tongue. Neck: No pain with movement. Lungs: Clear to auscultation. Cardiovascular: Heart rate at times was irregular, and at other times it appeared to be regular. Abdomen: Soft and nontender. Neurologic: Patient is alert. He can move his extremities. There is no tremor. He carries on a conversation coherently. LABORATORY AND X-RAY: CBC, BMP, and lipase have been ordered for this morning, but they are not yet back. Chest x-ray shows bibasilar atelectasis. ASSESSMENT AND PLAN: The patient has an infected pseudocyst causing his leukocytosis. My plan would be when the patient is discharged to switch him over to Levaquin. Some of the side effects of the antibiotic including rash, diarrhea, seizures, and tendon rupture have been explained to the patient who agrees with treatment. As regarding seizures, the patient told me years ago one day after he had a drug overdose he had some seizures that day. Ever since that time, he is on meropenem, which has been associated with seizures also, and he is tolerating it well. I think when he is on Levaquin he should also tolerate it well from the point of view of not having seizures. COMORBIDITIES: Patient is a diabetic. He has drug abuse. He also is listed as having schizophrenia. cc: Ravin Artis MD MTDD
[2019-11-08 07:06] LABS: BASO# 0.12 X1000 (0.0-0.2); BASO% 0.9 % (0.0-0.8); EOS# 0.38 X1000 (0.0-0.7); EOS% 2.8 % (0.0-10.0); IMM GRAN# 0.22 X1000 (0.0-0.04); IMM GRAN% 1.6 % (0.0-0.5); LYMPH# 4.04 X1000 (1.2-3.4); LYMPH% 29.3 % (20.5-51.1); MCHC 32.5 g/dL (33-37); MCV 92.4 FL (81-99); MONO# 2.12 X1000 (0.11-0.59); MONO% 15.4 % (1.7-9.3); MPV 10.6 FL (7.4-10.4); NEUT# 6.89 X1000 (1.4-6.5); PLT 630 X1000 (130-400); RBC 4.33 XMIL (4.7-6.1); RDW 14.5 % (11.5-14.5); WBC 13.77 X1000 (4.8-10.8)
[2019-11-08 07:59] LABS: AGAP 12; BUN 6 mg/dL (8-22); CALCIUM 8.9 mg/dL (8.8-10.2); CHLORIDE 103 mmol/L (98-107); COSMO 277; CREATININE 0.6 mg/dL (0.7-1.2); ESTIMATED GFR > 60; GLUCOSE 106 mg/dL (70-104); LIPASE 65 U/L (13-60); SODIUM 140 mmol/L (136-145); TCO2 25 mmol/L (25-35)
--- NOTE | 2019-11-08 08:01 | INFECTIOUS DISEASE PROGRESS NO ---
DATE: 11/08/2019 ADDENDUM: The patient's lab and radiographic studies have come back. The lipase is down to 66. The creatinine is 0.6. GFR greater than 60. The white blood cell count is down to 13,770, the hemoglobin is 13, and the platelet count is 630,000. The patient's chest x-ray shows that there is stable multifocal linear atelectasis bilaterally. cc: Ravin Artis MD
[2019-11-08] MEDS: REVIA PO SCH (08:39)
[2019-11-08] MEDS: LYRICA PO SCH ×2 (08:39→20:21)
[2019-11-08] MEDS: CELEXA PO SCH (08:39)
[2019-11-08] MEDS: MIRALAX PO SCH ×2 (08:39→08:45)
[2019-11-08] MEDS: LACTULOSE PO SCH ×2 (08:40→20:21)
[2019-11-08] MEDS: DUONEB (A & A) INH SCH ×3 (09:09→22:56)
[2019-11-08 10:39] LABS: BANDS 2 % (0-1); EOS 2 % (1-10); HYPOCHROM 1+; LYMPHS 34 % (21-51); MONO 6 % (1-9); SEGS 56 % (42-75)
[2019-11-08] MEDS: XANAX PO PRN ×2 (11:29→20:21)
[2019-11-08] MEDS: PROTONIX IV SCH ×2 (11:29→22:39)
--- NOTE | 2019-11-08 14:44 | PROGRESS NOTE ---
DATE: 11/08/2019 SUBJECTIVE: Patient has no major complaints. OBJECTIVE: Vital Signs: Blood pressure is 138/77, heart rate 92, respiratory rate 18, temperature 97.8 degrees, satting 97% on room air. Cardiovascular: Regular rate and rhythm. Pulmonary: Bilateral breath sounds. Clear to auscultation. GI: Soft, nontender, nondistended. Bowel sounds are positive. LABORATORY DATA: White count 13, hemoglobin and hematocrit 13 and 48, platelets 630. Basic was normal. Lipase was down to 65. PROBLEM LIST: 1. Acute respiratory failure aspiration. He seems to be doing okay on current antibiotics. 2. Duodenitis. We will continue proton pump inhibitor and Carafate. 3. Alcoholic acute pancreatitis with organizing pseudocyst. We will continue to monitor. Waiting on Gastroenterology opinion on any other treatment options, but I think they recommended that we would just do a CT scan and follow. DISPOSITION: Anticipate discharge to rehab when bed available. At this point, he is stable for discharge. cc: Fredis Valiente MD
[2019-11-08] MEDS: CARAFATE LIQUID PO SCH ×2 (15:26→20:21)
[2019-11-09] MEDS: CARAFATE LIQUID PO SCH ×4 (02:23→20:04)
[2019-11-09] MEDS: VANCOMYCIN 1,600 MG in NS 250 ML IV SCH ×2 (04:35→17:00)
[2019-11-09] MEDS: STADOL IV PRN ×5 (05:03→23:07)
[2019-11-09 05:14] LABS: BASO# 0.11 X1000 (0.0-0.2); BASO% 0.9 % (0.0-0.8); EOS# 0.34 X1000 (0.0-0.7); EOS% 2.7 % (0.0-10.0); HEMATOCRIT 39.4 % (42.0-52.0); HEMOGLOBIN 12.8 g/dL (14.0-18.0); IMM GRAN% 1.6 % (0.0-0.5); LYMPH# 4.68 X1000 (1.2-3.4); LYMPH% 37.4 % (20.5-51.1); MCH 29.8 PG (27-31); MCHC 32.5 g/dL (33-37); MCV 91.8 FL (81-99); MONO# 1.38 X1000 (0.11-0.59); MPV 10.2 FL (7.4-10.4); NEUT# 5.79 X1000 (1.4-6.5); NEUT% 46.4 % (42.2-75.2); PLT 698 X1000 (130-400); RBC 4.29 XMIL (4.7-6.1); RDW 14.4 % (11.5-14.5)
[2019-11-09 05:30] LABS: AGAP 9; BUN 7 mg/dL (8-22); CALCIUM 8.7 mg/dL (8.8-10.2); CHLORIDE 104 mmol/L (98-107); COSMO 276; CREATININE 0.6 mg/dL (0.7-1.2); ESTIMATED GFR > 60; GLUCOSE 103 mg/dL (70-104); POTASSIUM 3.9 mmol/L (3.5-5.1); SODIUM 139 mmol/L (136-145); TCO2 26 mmol/L (25-35)
[2019-11-09] MEDS: MERREM 1 GM in NS 50 ML IV SCH ×3 (06:06→22:54)
[2019-11-09] MEDS: HUMALOG SUBQ SCH ×4 (06:29→20:06)
--- NOTE | 2019-11-09 07:44 | Diag Imaging Result Doc PS360 ---
EXAM: CHEST-PORTABLE INDICATION: respiratory failure TECHNIQUE: One view COMPARISON: 11/08/2019 FINDINGS: Linear atelectasis at the mid lung zones bilaterally and the left lung base is essentially stable. There is stable blunting of the left costophrenic angle. No new consolidation is identified. Cardiac silhouette is stable. IMPRESSION: Essentially stable chest. Electronically signed by Mtat Lopez 11/09/2019 7:42 AM
[2019-11-09] MEDS: XANAX PO PRN ×2 (08:21→22:55)
[2019-11-09] MEDS: REVIA PO SCH (08:22)
[2019-11-09] MEDS: LACTULOSE PO SCH ×2 (08:22→20:04)
[2019-11-09] MEDS: CELEXA PO SCH (08:22)
[2019-11-09] MEDS: LYRICA PO SCH ×2 (08:22→20:04)
[2019-11-09] MEDS: MIRALAX PO SCH (08:22)
[2019-11-09] MEDS: DUONEB (A & A) INH SCH ×3 (09:38→23:44)
--- NOTE | 2019-11-09 09:43 | INFECTIOUS DISEASE PROGRESS NO ---
DATE: 11/09/2019 PRESENT ILLNESS: The patient has an infected pancreatic pseudocyst. MEDICATIONS: The patient has been on vancomycin and meropenem for 4 days. PHYSICAL EXAMINATION: Vital Signs: Temperature is 98.4 degrees, pulse 59, respirations 17, blood pressure is 126/64. General: This is a chronically ill-appearing, middle-aged male. He is in no acute distress. HEENT: He can hear my spoken words and see near objects. He does not have any white patches in his mouth. Neck: No stiffness. Lungs: Clear to auscultation. Cardiovascular: Heart rate was regular. Abdomen: Soft and nontender to light palpation. Neurologic: The patient is alert. He can move his extremities. There is no tremor. LABORATORY DATA: CBC shows a white count of 12,500, hemoglobin 12.8, platelet count 698,000. Creatinine is 0.6. GFR is greater than 60. Sputum grew Escherichia coli. ASSESSMENT AND PLAN: The patient has an infected pancreatic pseudocyst. The patient, at discharge, is going to be switched to Levaquin. COMORBIDITIES: The patient is a diabetic and he uses illicit drugs. He also has schizophrenia. cc: Ravin Artis MD
[2019-11-09] MEDS: PROTONIX IV SCH (11:30)
--- NOTE | 2019-11-09 15:22 | PROGRESS NOTE ---
DATE: 11/09/2019 SUBJECTIVE: Patient has no major complaints. OBJECTIVE: Blood pressure is 128/67, heart rate is 77, temp is 97.4 degrees, respiratory rate 18, saturation 96% on room air.Cardiovascular: Regular rate and rhythm. Pulmonary: Bilateral breath sounds clear to auscultation. GI: Soft, nontender, nondistended. Bowel sounds are positive. LABORATORY DATA: White count is 12, hemoglobin and hematocrit 12 and 39, platelets 698,000. He seems to be doing much better. PROBLEM LIST: 1. Acute pancreatitis with developing pseudocyst. He seems to be improving. We will continue treatment. He is much improved after the Carafate, which would suggest that this is probably related to his duodenitis more than anything, but he seems better. 2. Duodenitis. We will continue proton pump inhibitor. I think we can probably switch him to p.o. and follow. 3. Pneumonia. He is stable on current antibiotics. We will likely discharge him on oral antibiotics, perhaps Levaquin. He has an Escherichia coli sputum which was sensitive to cefazolin and Levaquin and all that kind of deal. cc: Fredis Valiente MD
[2019-11-10] MEDS: CARAFATE LIQUID PO SCH ×3 (03:34→14:54)
[2019-11-10] MEDS: VANCOMYCIN 1,600 MG in NS 250 ML IV SCH (03:52)
[2019-11-10 05:36] LABS: BASO# 0.24 X1000 (0.0-0.2); BASO% 1.8 % (0.0-0.8); EOS# 0.41 X1000 (0.0-0.7); HEMATOCRIT 39.4 % (42.0-52.0); HEMOGLOBIN 12.9 g/dL (14.0-18.0); IMM GRAN# 0.16 X1000 (0.0-0.04); IMM GRAN% 1.2 % (0.0-0.5); LYMPH% 32.9 % (20.5-51.1); MCH 30.2 PG (27-31); MCHC 32.7 g/dL (33-37); MCV 92.3 FL (81-99); MONO# 1.45 X1000 (0.11-0.59); MONO% 10.6 % (1.7-9.3); MPV 10.2 FL (7.4-10.4); NEUT# 6.92 X1000 (1.4-6.5); NEUT% 50.5 % (42.2-75.2); PLT 707 X1000 (130-400); RBC 4.27 XMIL (4.7-6.1); RDW 14.5 % (11.5-14.5); WBC 13.68 X1000 (4.8-10.8)
[2019-11-10] MEDS: STADOL IV PRN ×2 (05:49→10:25)
[2019-11-10] MEDS: PRILOSEC PO SCH ×2 (05:50→06:01)
[2019-11-10] MEDS: HUMALOG SUBQ SCH (06:00)
[2019-11-10] MEDS: MERREM 1 GM in NS 50 ML IV SCH ×2 (06:04→14:53)
[2019-11-10] MEDS: XANAX PO PRN (06:23)
[2019-11-10 07:32] LABS: EOS 2 % (1-10); LYMPHS 27 % (21-51); MONO 7 % (1-9); SEGS 61 % (42-75)
[2019-11-10] MEDS: CELEXA PO SCH (08:25)
[2019-11-10] MEDS: MIRALAX PO SCH (08:25)
[2019-11-10] MEDS: REVIA PO SCH (08:25)
[2019-11-10] MEDS: LYRICA PO SCH (08:25)
[2019-11-10] MEDS: LACTULOSE PO SCH (08:25)
--- NOTE | 2019-11-10 09:52 | INFECTIOUS DISEASE PROGRESS NO ---
DATE: 11/10/2019 PRESENT ILLNESS: The patient has an infected pancreatic pseudocyst. MEDICATIONS: The patient is on vancomycin and meropenem now for 5 days. PHYSICAL EXAMINATION: Vital Signs: Temperature is 98.9 degrees, pulse 63, respirations 18, blood pressure 113/65. General: This is a chronically ill-appearing, middle-aged male. He is in no acute distress. HEENT: He can hear my spoken words and see near objects. He does not have any white coating of his tongue. Neck: No pain with movement. Lungs: Clear to auscultation. Cardiovascular: Heart rate is regular. Abdomen: Soft and nontender. Neurologic: The patient is alert. He can move his extremities. There is no tremor. IMAGING AND LABORATORY DATA: Chest x-ray shows no consolidation. Creatinine is 0.6. GFR is greater than 60. CBC shows a white count of 13,680, hemoglobin 12.9, and platelet count 707,000. ASSESSMENT AND PLAN: The patient has an infected pancreatic pseudocyst. He does not have pneumonia at this time. My plan is to send him home on Levaquin 500 mg p.o. daily. I have sent a prescription for Levaquin electronically to the patient's pharmacy of choice, which is [facility], for 500 mg daily for 2 weeks. I have requested that the patient have a return appointment at my office in 2 weeks, at which time he will be examined and he will have repeat CBC, creatinine, and possible CT scan of the abdomen to see if his pseudocyst has cleared. Some of the side effects of Levaquin, including rash, diarrhea, seizures, and tendon rupture have been explained to the patient, who agrees with treatment. COMORBIDITIES: Diabetes mellitus, use of illicit drugs, and schizophrenia. cc: Ravin Artis MD
[2019-11-10] MEDS: DUONEB (A & A) INH SCH ×2 (10:47→15:15)
[2019-11-10 11:58] VITALS: BP 128/72
[2019-11-10] MEDS ORDERED: FLU VACCINE IM ONE (13:50)
--- NOTE | 2019-11-11 10:41 | DISCHARGE SUMMARY ---
ADMISSION DATE: 10/30/2019 DISCHARGE DATE: 11/10/2019 DISCHARGE DIAGNOSIS: 1. Intravenous heroin overdose. 2. Acute alcoholic pancreatitis. 3. Duodenitis. 4. Escherichia coli pneumonia with respiratory failure. 5. Acute kidney injury, acute tubular necrosis. 6. Pancreatic pseudocyst. PROCEDURES: Intubations. CONSULTATIONS: 1. Dr. Negron, pulmonary. 2. Infectious Diseases, Dr. Artis. 3. Dr. Toribio, gastroenterology. HOSPITAL COURSE: Briefly, this is a 64-year-old male with history of polysubstance abuse. He apparently injected IV heroin. He drinks about up to 8 beers a day and he was intubated. He was in septic shock on Levophed. He was placed on antibiotics. Pulmonary was consulted. He got a lot of saline. Echo showed an EF of 40 to 45 percent, but other than that was stable. Cardiology was consulted because of abnormal cardiac enzymes, which was felt to be associated with hypotension, sepsis and shock and kidney failure which he had acute kidney injury as well so please add to more things to the 1st problem list. The patient was eventually extubated. Ultrasound was negative. His initial CT showed pancreatitis. Head CT was negative. He progressed pretty well and ended up being extubated. He was maintained on antibiotics because of a sputum culture. I think by the he was extubated. Diet was slowly advanced he was on Maxipime and Zyvox. He had persistent leukocytosis, so I switched his antibiotics to vancomycin and meropenem and Dr. Artis was consulted. His white count started trending down, though after we switched his antibiotics. We continued to progress with PT. The patient is stabilized. He was off oxygen. He underwent an endoscopy on the per Dr. Kapadia because of the duodenitis and he had gastritis in the antrum, retained food and duodenal inflammation in the duodenal bulb. Recommended anti-reflux. Because of his persistent elevated white count, I did repeat his abdominal CT and he did have an organizing fluid collection that was a pseudocyst which I do not really think looking at it was more than 3 to 4 cm and he improved Dr. Artis adjusted his antibiotics and recommended to go home on Levaquin which he has already sent and he will follow up with him in 2 weeks. I think he needs a repeat CT scan in about 6 weeks just to make sure that the pseudocyst has either matured or gone away because he has had fluid collection within a week. DISCHARGE CONDITION: Stable. DISCHARGE MEDICATIONS: 1. Celexa 20. 2. Naltrexone 50. 3. Xanax 1 b.i.d. 4. Levaquin 500 daily for 2 weeks. 5. Lyrica 75 b.i.d. FOLLOWUP: He is going to follow up with his PCP, Dr. Guerrero. We also need to send his stomach medication and we will continue to follow. He will do Prilosec 40 and Carafate slurry 1 g t.i.d. a.c. for 6 weeks. TIME SPENT: 32 minute discharge. He needs a repeat CT in 6 weeks just to evaluate his pseudocyst. cc: MD Antloin Kaur MD Leroy F. Harris, MD
== END 2019-11-10 15:33 | disposition home health service (06) | DRG 871 ==
LOC: P.ED 12:34 → ICU 15:36 → SUATTDRO 15:36 → ICU 16:10 → 2N 11-03 14:52 → 1N 11-05 15:13
PROVIDERS: ATTEND Internal Medicine

== ENCOUNTER 2019-11-25 09:21 | Inpatient (IN) ==
[2019-11-25] MEDS ORDERED: NS 500 ML IV ONE (10:33)
--- NOTE | 2019-11-25 10:47 | Diag Imaging Result Doc PS360 ---
CHEST-PORTABLE - 11/25/2019 INDICATION: ruq pain COMPARISON: 11/09/2019 FINDINGS: There has been significant improvement in the multifocal bilateral linear atelectasis. No new infiltrates. Stable scarring at the left costophrenic angle. Heart size and pulmonary vascularity is normal. IMPRESSION: No acute process. Electronically signed by Howie Hdz 11/25/2019 10:44 AM
[2019-11-25 10:50] LABS: BASO# 0.14 X1000 (0.0-0.2); BASO% 1.2 % (0.0-0.8); EOS# 0.09 X1000 (0.0-0.7); EOS% 0.8 % (0.0-10.0); HEMATOCRIT 43.1 % (42.0-52.0); HEMOGLOBIN 14.7 g/dL (14.0-18.0); IMM GRAN# 0.04 X1000 (0.0-0.04); IMM GRAN% 0.3 % (0.0-0.5); LYMPH# 3.61 X1000 (1.2-3.4); MCH 29.8 PG (27-31); MCHC 34.1 g/dL (33-37); MCV 87.4 FL (81-99); MONO# 1.26 X1000 (0.11-0.59); MONO% 10.8 % (1.7-9.3); MPV 11.2 FL (7.4-10.4); NEUT# 6.52 X1000 (1.4-6.5); NEUT% 55.9 % (42.2-75.2); PLT 521 X1000 (130-400); RBC 4.93 XMIL (4.7-6.1); RDW 15.5 % (11.5-14.5); WBC 11.66 X1000 (4.8-10.8)
[2019-11-25 11:11] LABS: URINE SOURCE CLEAN CATCH
[2019-11-25 11:16] LABS: BILIRUBIN URINE NEGATIVE (NEGATIVE); BLOOD URINE NEGATIVE (NEGATIVE); COLOR YELLOW; GLUCOSE URINE 70 mg/dL (NEGATIVE); KETONE URINE NEGATIVE (NEGATIVE); LEUKOCYTES URINE NEGATIVE (NEGATIVE); NITRITE URINE NEGATIVE (NEGATIVE); PROTEIN URINE NEGATIVE (NEGATIVE); SP GRAVITY URINE 1.007; TURBIDITY URINE CLEAR (CLEAR); UROBILINOGEN URINE NORMAL (NORMAL)
[2019-11-25 11:17] LABS: UR EPITHELIAL CELLS <10 /HPF (<10); URINE BACTERIA NEGATIVE /HPF; URINE RBC <10 /HPF (<10); URINE WBC <10 /HPF (<10)
[2019-11-25 11:17] LABS: AGAP 15; ALB/GLOB RATIO 1.1; ALBUMIN 3.9 g/dL (3.5-5.0); ALKALINE PHOSPHATASE 163 U/L (32-122); BUN 8 mg/dL (8-22); CALCIUM 9.5 mg/dL (8.8-10.2); CHLORIDE 96 mmol/L (98-107); COSMO 271; CREATININE 0.7 mg/dL (0.7-1.2); ESTIMATED GFR > 60; GLUCOSE 172 mg/dL (70-104); GOT 266 U/L (10-34); GPT 685 U/L (10-44); LIPASE 46 U/L (13-60); MAGNESIUM 1.6 mg/dL (1.5-2.7); POTASSIUM 4.6 mmol/L (3.5-5.1); SODIUM 134 mmol/L (136-145); TCO2 23 mmol/L (25-35); TOTAL BILIRUBIN 0.54 mg/dL (0.20-1.00); TOTAL PROTEIN 7.3 g/dL (6.3-8.3)
--- NOTE | 2019-11-25 11:27 | EKG Report ---
Test Performed on : 11/25/2019 11:15:28 AM Test Reason : ruq abd apin Blood Pressure : / mmHG Vent. Rate : 091 BPM Atrial Rate : 091 BPM P-R Int : 144 ms QRS Dur : 082 ms QT Int : 350 ms P-R-T Axes : 039 045 016 degrees QTc Int : 430 ms Normal sinus rhythm. with sinus arrhythmia. Normal ECG When compared with ECG of 30-OCT-2019 13:02, (Unconfirmed) No significant change was found Unconfirmed Result
[2019-11-25 11:31] LABS: INR 0.99; PROTIME 13.2 Seconds (11.0-16.0)
[2019-11-25 11:32] LABS: PTT 31.7 Seconds (22.3-41.8)
[2019-11-25 11:40] LABS: UR AMPHETAMINES QUAL NONE DETECTED (NONE DETECT); UR BARBITUATES QUAL NONE DETECTED (NONE DETECT); UR BENZODIAZEPIN QUAL NONE DETECTED (NONE DETECT); UR CANNABINOIDS QUAL NONE DETECTED (NONE DETECT); UR COCAINE QUAL NONE DETECTED (NONE DETECT); UR METHADONE QUAL NONE DETECTED (NONE DETECT); UR OPIATES QUAL NONE DETECTED (NONE DETECT); UR OXYCODONE QUAL NONE DETECTED (NONE DETECT); UR PCP QUAL NONE DETECTED (NONE DETECT)
[2019-11-25] MEDS ORDERED: NS 1,000 ML IV ONE (11:47)
[2019-11-25] MEDS ORDERED: STADOL IV ONE (11:48)
--- NOTE | 2019-11-25 12:25 | Diag Imaging Result Doc PS360 ---
EXAM: CT ABD/PELVIS W/IV CONT ONLY INDICATION: ruq TECHNIQUE: This exam was performed using automated exposure control, adjustment of mA or kV according to patient size, and/or use of iterative reconstruction technique. COMPARISON: 11/18/2019 FINDINGS: There is subsegmental atelectasis at both lung bases. There has been a prior cholecystectomy. There is suggestion of very mild hepatic steatosis. There is no evidence of biliary dilatation. The peripancreatic fluid collection consistent with a pseudocyst anterior to the neck of the pancreas seen on the previous recent study is again identified. It is probably contiguous with another loculated adjacent fluid collections just inferior to it. This pseudocyst is approximately stable measuring up to 5.5 x 4.1 cm axially (5.3 x 4.1 cm previously, remeasured). Around the multiloculated more inferior collection, there is still mild inflammatory stranding consistent with pancreatitis that is very similar to the previous study. No definite pancreatic necrosis is identified. The spleen is absent. The portal vein is patent. The adrenal glands, kidneys, and urinary bladder are unremarkable. There is mild gaseous distention of the colon beginning at the mid transverse colon and extending to the rectum. There are several mildly prominent loops of small bowel containing gas and fluid. This is most compatible with ileus. There is nothing that would necessarily indicate obstruction. No free abdominal gas is appreciated. The stomach is unremarkable. There is no evidence of acute osseous abnormality. IMPRESSION: 1.Pancreatic pseudocyst that is approximately stable as compared to the previous study and mild inflammatory stranding surrounding the inferior multiloculated portion of the pseudocyst that is also approximately stable. 2.Mild distention of most of the colon and several mildly prominent loops of small bowel with air and fluid most compatible with ileus. 3.No evidence of biliary dilatation. Electronically signed by Matt Lopez 11/25/2019 12:23 PM
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
[2019-11-25] MEDS: NS 1,000 ML IV ONE ×2 (13:32→16:09)
--- NOTE | 2019-11-25 13:32 | Diag Imaging Result Doc PS360 ---
CHEST-PORTABLE - 11/25/2019 1:24 PM INDICATION: ng placement COMPARISON: 10:28 AM FINDINGS: There is a nasogastric tube in good position in the stomach. IMPRESSION: Nasogastric tube in the stomach. Electronically signed by Howie Hdz 11/25/2019 1:29 PM
[2019-11-25] MEDS: PEPCID IV SCH (16:09)
--- NOTE | 2019-11-25 16:57 | Diag Imaging Result Doc PS360 ---
EXAM: US ABDOMEN-COMPLETE - 11/25/2019 HISTORY: elevated LFTs TECHNIQUE: Ultrasound abdomen COMPARISON: 11/25/2019 CT abdomen/pelvis FINDINGS: There are artifacts from bowel gas which limit detail. The gallbladder is surgically absent. The common bile duct is normal caliber at 5 mm. There is a 4 x 4.3 x 3.5 cm cystic structure at the midline which is compatible with the pseudocyst seen on the CT scan. The pancreas otherwise is obscured by bowel gas artifacts. There is no liver lesion identified. The flow direction in the portal vein is ambiguous on Doppler images, is not certain if this is real or technical. The spleen is surgically absent. There is no ascites seen. There are no abnormalities of the bilateral kidneys identified. Abdominal aorta and IVC are obscured by bowel gas artifacts. IMPRESSION: Status post cholecystectomy. Normal caliber common bile duct at 5 mm. 4 x 4.3 x 3.5 cm pancreatic pseudocyst. Ambiguous direction of blood flow signal in the portal vein versus technical artifact. No visible liver lesion. Electronically signed by Troy Sarkar 11/25/2019 4:55 PM
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
[2019-11-25] MEDS: ZOFRAN IV PRN (20:06)
--- NOTE | 2019-11-25 22:58 | GENERAL SURGERY CONSULTATION ---
DATE: 11/25/2019 CHIEF COMPLAINT: Abdominal pain. HISTORY OF PRESENT ILLNESS: This is a gentleman with recurrent admissions for chronic abdominal pain. He has a history of pancreatitis, presumably either drug and alcohol or gallstone mediated. He recently was found to have a pseudocyst. He says the last couple days he has had worsening epigastric abdominal pain, which has really persisted since his last admission, but he has developed some nausea and vomiting. Denies any fevers. No jaundice. Bowel function has otherwise been normal. He denies any recent drug or alcohol use. He came to the ER where CT scan was obtained, and I was consulted. REVIEW OF SYSTEMS: A 10-point review of systems was performed and negative other than what is mentioned in HPI. MEDICAL HISTORY: Includes MRSA bacteremia, history of left above-knee amputation that was traumatic, chronic anxiety, depression and pain, seizure disorder related to drug and alcohol withdrawal, COPD, bronchitis, hepatitis C, history of opiate overdose. SURGICAL HISTORY: Laparoscopic lysis of adhesions, left above knee amputation, cholecystectomy, tonsillectomy, splenectomy and right eye surgery. SOCIAL HISTORY: Lives with family. He is on disability. He does have an extensive drug and alcohol history. MEDICATIONS: List is pending. FAMILY HISTORY: Negative for cancer. PHYSICAL EXAMINATION: General: He is alert, no acute distress. Vital signs: Afebrile, pulse 80, blood pressure 147/85, oxygen saturation 97%. HEENT: There is a nasogastric tube in place not to suction. Cardiovascular: Normal rate. Pulmonary: No increased work of breathing. Abdomen: Soft, nontender, nondistended. Integument: Warm and dry without jaundice. Psychiatric: Appropriate affect. Neurologic: No gross deficits. Lymphatic: No cervical adenopathy. LABORATORY DATA: White count is 11, hematocrit is 43, platelets 521,000, INR 0.99, creatinine 0.7. Bilirubin is normal. AST, ALT, and alkaline phosphatase are mildly elevated. Lipase is normal. Lactate is 1.1. UDS is negative. Urinalysis is clear. IMAGING: I reviewed the CT scan. ASSESSMENT AND PLAN: A 64-year-old with chronic pseudocyst, nausea, vomiting. There is some question of ileus, although I think this is probably an incidental bowel dilation. It is possible that the pseudocyst in the head of the pancreas is compressing the duodenum, and I do think it would be amenable to endoscopic treatment. We will see how he does over the next couple of days. He may warrant ultimate endoscopic drainage of the pseudocyst enterically, but we will see how he does. cc: Ruddy Gabriel MD
[2019-11-25] MEDS: NS 1,000 ML IV SCH (23:03)
[2019-11-26] MEDS: TORADOL IV PRN ×3 (00:16→16:40)
[2019-11-26] MEDS: PEPCID IV SCH ×2 (03:38→14:57)
[2019-11-26] MEDS ORDERED: VANCOMYCIN IV PER PHARMACY MISC SCH (05:45)
[2019-11-26] MEDS ORDERED: VANCOMYCIN 2,200 MG in NS 500 ML IV ONE (07:00)
[2019-11-26 07:52] LABS: BASO# 0.11 X1000 (0.0-0.2); BASO% 1.1 % (0.0-0.8); EOS# 0.41 X1000 (0.0-0.7); EOS% 4.3 % (0.0-10.0); HEMATOCRIT 39.1 % (42.0-52.0); HEMOGLOBIN 13.2 g/dL (14.0-18.0); IMM GRAN# 0.03 X1000 (0.0-0.04); IMM GRAN% 0.3 % (0.0-0.5); LYMPH# 3.34 X1000 (1.2-3.4); LYMPH% 34.7 % (20.5-51.1); MCH 30.4 PG (27-31); MCHC 33.8 g/dL (33-37); MCV 90.1 FL (81-99); MONO# 1.58 X1000 (0.11-0.59); MONO% 16.4 % (1.7-9.3); MPV 11.7 FL (7.4-10.4); NEUT# 4.15 X1000 (1.4-6.5); NEUT% 43.2 % (42.2-75.2); PLT 442 X1000 (130-400); RBC 4.34 XMIL (4.7-6.1); RDW 15.7 % (11.5-14.5); WBC 9.62 X1000 (4.8-10.8)
[2019-11-26] MEDS: ZOFRAN IV PRN ×2 (08:15→16:40)
[2019-11-26 08:18] LABS: AGAP 11; ALB/GLOB RATIO 1.1; ALBUMIN 3.2 g/dL (3.5-5.0); ALKALINE PHOSPHATASE 132 U/L (32-122); BUN 5 mg/dL (8-22); CHLORIDE 104 mmol/L (98-107); COSMO 275; CREATININE 0.6 mg/dL (0.7-1.2); ESTIMATED GFR > 60; GLUCOSE 111 mg/dL (70-104); GOT 152 U/L (10-34); GPT 484 U/L (10-44); MAGNESIUM 1.7 mg/dL (1.5-2.7); POTASSIUM 4.3 mmol/L (3.5-5.1); SODIUM 139 mmol/L (136-145); TCO2 24 mmol/L (25-35); TOTAL PROTEIN 6.1 g/dL (6.3-8.3)
--- NOTE | 2019-11-26 08:53 | PROGRESS NOTE ---
DATE: 11/26/2019 SUBJECTIVE: Patient reports feeling fine. Not able to sleep last night. He reports passing gases. OBJECTIVE: Vital Signs: Temperature 98.2 degrees, heart rate 82, respiratory rate 18, blood pressure 128/75, O2 saturation 97% on room air. General examination: The is a 64-year-old male, lying in bed in no acute distress. Cardiovascular exam: S1, S2 heard. No murmurs, gallops, or rubs. Regular rate and rhythm. Respiratory exam: Clear bilaterally to auscultation. No work of breathing or using accessory muscles. Abdomen: A little bit distended. Mild tenderness to palpation in the right upper quadrant. Bowel sounds present. No organomegaly. No signs of peritoneal irritation. Extremities: No clubbing, cyanosis, or edema. Peripheral pulses present in both legs. Neurological exam: Patient is alert, oriented x3, moves 4 extremities. LABORATORY DATA: Pending at the time of my dictation. Also, there is BMP that is also pending. ASSESSMENT AND PLAN: 1. Ileus. The patient is on bowel rest, nasogastric tube, intravenous fluids and nothing by mouth. Dr. Gabriel from General Surgery is also following this patient. Patient is passing gases. We plan to do KUB on a daily basis. Of course, result is not available yet. We will continue to monitor. 2. Hepatitis C. That is the reason why this patient has an elevation of his liver function tests. Abdominal ultrasound has been ordered which basically showed status post cholecystectomy with normal caliber common bile duct and pancreatic pseudocyst. At this point, we will continue to monitor. 3. History of alcohol abuse, benzodiazepine, opiates and intravenous drug abuse. The patient is not abusing all those substances. Urine drug screen is okay. We will continue to monitor. 4. Chronic insomnia. We will provide Haldol this night to help him sleep. 5. Chronic obstructive pulmonary disease. The patient is not in any exacerbation. We will continue to monitor. 6. Disposition: We will continue to monitor this patient closely. cc: MD Ruddy Bach MD
--- NOTE | 2019-11-26 09:02 | Diag Imaging Result Doc PS360 ---
KUB ABDOMEN - 11/26/2019 INDICATION: illeus COMPARISON: 11/18/2019 FINDINGS: There is a nonobstructive bowel gas pattern. No free air or abdominal calcifications. There is no constipation. IMPRESSION: No acute disease. Electronically signed by Howie Hdz 11/26/2019 9:00 AM
[2019-11-26] MEDS: NS 1,000 ML IV SCH ×2 (12:15→23:24)
[2019-11-26] MEDS: SODIUM CHLORIDE 0.9% INJ SCH (14:57)
[2019-11-26] MEDS: VANCOMYCIN 1,650 MG in NS 250 ML IV SCH (17:33)
--- NOTE | 2019-11-26 19:09 | GENERAL SURGERY PROGRESS NOTE ---
DATE: 11/26/2019 SUBJECTIVE: He is passing gas. Feels better. NG tube output has been modest amount. No fevers. OBJECTIVE: Vital Signs: Pulse 76, blood pressure 141/86. General: He is alert. HEENT: NG tube is in place with gastric drainage. Cardiovascular: Normal rate. Pulmonary: No increased work of breathing. Abdomen: Soft, nontender, nondistended. LABS: White count is 9, hematocrit 39, creatinine 0.6. Bilirubin is normal. AST and ALT and alkaline phosphatase are downtrending. ASSESSMENT AND PLAN: A 64-year-old gentleman with chronic pseudocyst, chronic pancreatitis. He presented with apparent ileus. I suspect that most of the symptoms are related to extrinsic compression related to the pseudocyst, and he would ultimately benefit from endoscopic drainage. I do not think he is obstructed. We will keep his NG tube today and remove it tomorrow, and then I think he needs to go to [place], either [place] or [facility], for endoscopic cyst gastrostomy placement. I did discuss with the patient. cc: Ruddy Gabriel MD
[2019-11-26] MEDS: HALDOL IV SCH (22:01)
[2019-11-27] MEDS: SODIUM CHLORIDE 0.9% INJ SCH ×2 (01:24→22:20)
[2019-11-27] MEDS: PEPCID IV SCH ×3 (01:24→22:20)
[2019-11-27] MEDS: TORADOL IV PRN ×3 (04:08→21:10)
[2019-11-27] MEDS: VANCOMYCIN 1,650 MG in NS 250 ML IV SCH ×2 (05:04→17:10)
[2019-11-27] MEDS: ZOFRAN IV PRN ×4 (06:01→21:10)
[2019-11-27 07:32] LABS: BASO# 0.11 X1000 (0.0-0.2); BASO% 1.3 % (0.0-0.8); EOS# 0.68 X1000 (0.0-0.7); EOS% 8.3 % (0.0-10.0); HEMATOCRIT 39.2 % (42.0-52.0); IMM GRAN# 0.03 X1000 (0.0-0.04); IMM GRAN% 0.4 % (0.0-0.5); LYMPH# 2.92 X1000 (1.2-3.4); LYMPH% 35.8 % (20.5-51.1); MCH 30.2 PG (27-31); MCHC 33.2 g/dL (33-37); MONO# 1.15 X1000 (0.11-0.59); MONO% 14.1 % (1.7-9.3); MPV 11.4 FL (7.4-10.4); NEUT# 3.27 X1000 (1.4-6.5); NEUT% 40.1 % (42.2-75.2); PLT 424 X1000 (130-400); RBC 4.31 XMIL (4.7-6.1); RDW 15.8 % (11.5-14.5); WBC 8.16 X1000 (4.8-10.8)
[2019-11-27] MEDS: NS 1,000 ML IV SCH ×2 (08:25→16:37)
[2019-11-27 08:30] LABS: AGAP 11; BUN 3 mg/dL (8-22); CALCIUM 8.1 mg/dL (8.8-10.2); CHLORIDE 107 mmol/L (98-107); COSMO 280; CREATININE 0.6 mg/dL (0.7-1.2); ESTIMATED GFR > 60; GLUCOSE 131 mg/dL (70-104); POTASSIUM 3.9 mmol/L (3.5-5.1); SODIUM 141 mmol/L (136-145); TCO2 23 mmol/L (25-35)
--- NOTE | 2019-11-27 10:34 | Diag Imaging Result Doc PS360 ---
EXAM: KUB ABDOMEN HISTORY: illeus TECHNIQUE: Single view COMPARISON: 11/26/2019 FINDINGS: The gallbladder has been removed. No bowel obstruction. No organomegaly. There are several pelvic phleboliths. Degenerative changes in the lumbar spine with several mild compression fractures similar to the prior exam. IMPRESSION: No acute abnormality. Electronically signed by Abdullahi Ortega 11/27/2019 10:31 AM
--- NOTE | 2019-11-27 13:31 | PROGRESS NOTE ---
DATE: 11/27/2019 SUBJECTIVE: Patient reports feeling fine. He is still feeling nauseated when he tries to eat a clear liquid diet. No other complaints noted. OBJECTIVE: Vital Signs: Temperature 98.3 degrees, heart rate 64, respiratory 19, blood pressure 116/69, O2 saturation 96% on room air. General: This is a 64-year-old male, lying in bed, in no acute distress. Cardiovascular: S1, S2 heard. No murmurs, gallops, or rubs. Regular rate and rhythm. Respiratory: Clear bilaterally to auscultation. No work of breathing or using accessory muscles. Abdomen: Soft. Mildly distended. Mildly tender to palpation in the epigastric area and right upper quadrant. Bowel sounds present. No organomegaly. No signs of peritoneal irritation. Extremities: No clubbing, cyanosis, or edema. Peripheral pulses present in both legs. Neurological: Patient alert and oriented x3. Moves 4 extremities. LABORATORY DATA: White cell count is okay at 8.16, hemoglobin 13.0, hematocrit 39.2, platelets 424,000. BMP is pending at time of my dictation. ASSESSMENT AND PLAN: 1. Ileus. I think this condition is resolved. We have removed the NG tube yesterday and we started this patient on a clear liquid diet. Apparently, he is still a little bit nauseated. According to General Surgery, this patient is having all those symptoms because the pseudocyst that is causing pressure in the GI tract, so at this point, we are not planning to do any procedure. We will continue with clear liquid diet. We will advance his diet as tolerated. 2. Hepatitis C. That is reason why this patient has elevated liver function tests. 3. History of alcohol abuse, benzodiazepine abuse and IV drugs. UDS at presentation is normal. We will continue to monitor. 4. Chronic insomnia. The patient is receiving Haldol at nighttime. he reports feeling much better. 5. Chronic obstructive pulmonary disease. The patient is not in any exacerbation. We will continue to monitor. 6. Disposition. We will continue to monitor this patient closely. We will continue with clear liquid diet and will advance diet as tolerated. cc: MD Ruddy Bach MD
[2019-11-27] MEDS: HALDOL IV SCH (21:06)
--- NOTE | 2019-11-27 22:17 | GENERAL SURGERY PROGRESS NOTE ---
DATE: 11/27/2019 SUBJECTIVE: The patient says he feels a little better with less abdominal pain. OBJECTIVE: He is afebrile. Vital signs are stable.General: He is awake, alert, oriented x3. No acute distress. Gastrointestinal: Soft, mildly tender. No rebound or guarding. LABORATORY: White blood cell count 8, hemoglobin 13, hematocrit 39. Electrolytes reviewed, unremarkable. IMAGING: Abdominal x-ray this morning shows no acute abnormality. ASSESSMENT AND PLAN: A 64-year-old male with a chronic pancreatic pseudocyst. Symptomatically, he appears to be improved. His abdominal x-ray today does not show any significant small-bowel or gastric dilation. He probably has extrinsic compression of his duodenum and stomach from the pseudocyst and would likely benefit from endoscopic drainage such as a cyst gastrostomy in the future. For now we will let him increase his diet as tolerated but I suspect Dr. Gabriel will pursue a referral to a specialized center in [place] for this procedure in the near future. cc: MD Ruddy Back MD
[2019-11-28] MEDS: NS 1,000 ML IV SCH ×4 (03:01→21:47)
[2019-11-28 04:38] LABS: BASO# 0.11 X1000 (0.0-0.2); BASO% 1.3 % (0.0-0.8); EOS# 0.65 X1000 (0.0-0.7); EOS% 7.8 % (0.0-10.0); HEMATOCRIT 36.9 % (42.0-52.0); HEMOGLOBIN 12.3 g/dL (14.0-18.0); IMM GRAN# 0.02 X1000 (0.0-0.04); IMM GRAN% 0.2 % (0.0-0.5); LYMPH# 3.26 X1000 (1.2-3.4); MCH 30.1 PG (27-31); MCHC 33.3 g/dL (33-37); MCV 90.4 FL (81-99); MONO# 1.26 X1000 (0.11-0.59); MONO% 15.1 % (1.7-9.3); NEUT# 3.05 X1000 (1.4-6.5); NEUT% 36.6 % (42.2-75.2); PLT 395 X1000 (130-400); RBC 4.08 XMIL (4.7-6.1); RDW 15.4 % (11.5-14.5); WBC 8.35 X1000 (4.8-10.8)
[2019-11-28 05:03] LABS: AGAP 9; BUN 2 mg/dL (8-22); CALCIUM 8.2 mg/dL (8.8-10.2); CHLORIDE 110 mmol/L (98-107); COSMO 281; CREATININE 0.6 mg/dL (0.7-1.2); ESTIMATED GFR > 60; GLUCOSE 104 mg/dL (70-104); POTASSIUM 3.8 mmol/L (3.5-5.1); SODIUM 143 mmol/L (136-145); TCO2 24 mmol/L (25-35)
[2019-11-28] MEDS: TORADOL IV PRN ×3 (05:04→21:43)
[2019-11-28] MEDS: ZOFRAN IV PRN ×3 (05:04→21:43)
[2019-11-28] MEDS: VANCOMYCIN 1,650 MG in NS 250 ML IV SCH ×2 (05:53→17:46)
--- NOTE | 2019-11-28 08:23 | Diag Imaging Result Doc PS360 ---
EXAM: KUB ABDOMEN 11/28/2019 HISTORY: illeus TECHNIQUE: KUB COMMENT: There is some stool in the ascending colon. There is no evidence of bowel obstruction organomegaly or mass. Compared to 11/27/2019 there is some decrease in the amount of bowel gas generally. IMPRESSION: Nonspecific abdomen. Electronically signed by Marcio Gamble 11/28/2019 8:21 AM
--- NOTE | 2019-11-28 08:33 | PROGRESS NOTE ---
DATE: 11/28/2019 SUBJECTIVE: Patient reports tolerating a clear liquid diet. He wants to advance his diet. No other complaints noted. OBJECTIVE: Vital Signs: Temperature 98.1 degrees, heart rate 81, respiratory rate 20, blood pressure 111/50, O2 saturation 97% on room air. General Examination: This is a 64-year-old, male lying in bed, in no acute distress. Cardiovascular Examination: S1 and S2 heard. No murmurs, gallops, or rubs. Regular rate and rhythm. Respiratory Examination: Clear bilaterally to auscultation. No work of breathing or using accessory muscles. Abdomen: Soft. Mildly distended. Mildly tender to palpation in the epigastric area. Bowel sounds present. No organomegaly. No signs of peritoneal irritation. Extremities: No clubbing, cyanosis, or edema. Peripheral pulses present in both legs. Neurological Examination: The patient is alert and oriented x3. Moves 4 extremities. Laboratory Data: Pending at the time of my dictation. ASSESSMENT AND PLAN: 1. Ileus. I think that condition is resolved. The patient is tolerating clear liquids very well so we are going to advance his diet to gastrointestinal soft. If he is tolerating the diet tomorrow, I think we can discharge him. Apparently, all those symptoms are related to a pseudocyst that he will need to get referral to a specialized center. 2. Hepatitis C. That is the reason why this patient has elevated liver function tests. We will continue to monitor. 3. Chronic insomnia. Condition is getting better. We will continue Haldol at night. 4. Chronic obstructive pulmonary disease. Patient is not in any exacerbation. We will continue to monitor. 5. Disposition. I think if the patient is able to tolerate a gastrointestinal soft diet, he can be discharged tomorrow. cc: MD Ruddy Bach MD
[2019-11-28] MEDS: PEPCID IV SCH (13:04)
--- NOTE | 2019-11-28 15:07 | GENERAL SURGERY PROGRESS NOTE ---
DATE: 11/28/2019 SUBJECTIVE: The patient says he feels better with less pain. No nausea, vomiting. He is tolerating his clear liquid diet. OBJECTIVE: Vital Signs: He is afebrile. Vital signs are stable. General: He is awake, alert, oriented x3. No acute distress. Gastrointestinal: Abdomen soft, nondistended, mildly tender in the right side of the abdomen and epigastrium. No rebound or guarding. LABORATORY: CBC and metabolic profile reviewed unremarkable. ASSESSMENT AND PLAN: A 64-year-old male with chronic pancreatitis, and pseudocyst. His symptoms have improved. We will advance his diet as tolerated. cc: MD Ruddy Back MD
[2019-11-28] MEDS: HALDOL IV SCH (21:43)
[2019-11-29] MEDS: PEPCID IV SCH (01:23)
[2019-11-29] MEDS: NS 1,000 ML IV SCH (03:04)
[2019-11-29] MEDS: ZOFRAN IV PRN (05:54)
[2019-11-29] MEDS: TORADOL IV PRN (05:54)
[2019-11-29] MEDS: VANCOMYCIN 1,650 MG in NS 250 ML IV SCH (05:54)
[2019-11-29 07:15] VITALS: BP 128/66
[2019-11-29 07:29] LABS: BASO% 1.2 % (0.0-0.8); EOS# 0.57 X1000 (0.0-0.7); EOS% 6.9 % (0.0-10.0); HEMATOCRIT 37.5 % (42.0-52.0); HEMOGLOBIN 12.3 g/dL (14.0-18.0); IMM GRAN# 0.02 X1000 (0.0-0.04); IMM GRAN% 0.2 % (0.0-0.5); LYMPH# 3.09 X1000 (1.2-3.4); LYMPH% 37.5 % (20.5-51.1); MCH 29.8 PG (27-31); MCHC 32.8 g/dL (33-37); MCV 90.8 FL (81-99); MONO# 1.25 X1000 (0.11-0.59); MONO% 15.2 % (1.7-9.3); MPV 11.4 FL (7.4-10.4); NEUT# 3.21 X1000 (1.4-6.5); PLT 384 X1000 (130-400); RBC 4.13 XMIL (4.7-6.1); RDW 15.6 % (11.5-14.5); WBC 8.24 X1000 (4.8-10.8)
[2019-11-29 08:35] LABS: AGAP 12; BUN 5 mg/dL (8-22); CHLORIDE 107 mmol/L (98-107); COSMO 282; CREATININE 0.6 mg/dL (0.7-1.2); ESTIMATED GFR > 60; GLUCOSE 126 mg/dL (70-104); POTASSIUM 3.8 mmol/L (3.5-5.1); SODIUM 142 mmol/L (136-145); TCO2 23 mmol/L (25-35)
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
== END 2019-11-29 11:48 | disposition home or self-care (01) | DRG 440 ==
LOC: SUPCPDRO → ED 09:21 → EDIPHOLD 13:32 → 4N 17:37
PROVIDERS: ADMIT Surgery; ATTEND Internal Medicine

== ENCOUNTER 2020-02-04 15:27 | Inpatient (IN) ==
[2020-02-04] MEDS ORDERED: M.V.I.-12 10 ML, FOLIC ACID 1 MG, MAGNESIUM SULFATE 1 GM, THIAMINE 100 MG in NS 1,000 ML IV ONE (15:42)
[2020-02-04] MEDS ORDERED: LIBRIUM PO ONE (15:43)
[2020-02-04] MEDS ORDERED: ZOFRAN ODT PO ONE (15:43)
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
[2020-02-04 16:01] LABS: BASO# 0.07 X1000 (0.0-0.2); BASO% 0.7 % (0.0-0.8); EOS# 0.18 X1000 (0.0-0.7); EOS% 1.8 % (0.0-10.0); HEMATOCRIT 44.9 % (42.0-52.0); HEMOGLOBIN 15.1 g/dL (14.0-18.0); IMM GRAN# 0.03 X1000 (0.0-0.04); IMM GRAN% 0.3 % (0.0-0.5); LYMPH# 2.39 X1000 (1.2-3.4); LYMPH% 24.3 % (20.5-51.1); MCH 30.8 PG (27-31); MCHC 33.6 g/dL (33-37); MCV 91.6 FL (81-99); MONO% 13.2 % (1.7-9.3); MPV 10.7 FL (7.4-10.4); NEUT# 5.86 X1000 (1.4-6.5); NEUT% 59.7 % (42.2-75.2); PLT 298 X1000 (130-400); RDW 16.2 % (11.5-14.5); WBC 9.83 X1000 (4.8-10.8)
--- NOTE | 2020-02-04 16:12 | Diag Imaging Result Doc PS360 ---
EXAM: CHEST-PORTABLE HISTORY: nausea, tachycardia TECHNIQUE: Single view COMPARISON: 01/24/2020 FINDINGS: The lungs are well expanded. The heart is not enlarged. The vessels are not distended. There are no infiltrates. No effusion identified. IMPRESSION: Negative exam. Electronically signed by Abdullahi Ortega 02/04/2020 4:09 PM
[2020-02-04 16:16] LABS: AGAP 19; ALBUMIN 4.3 g/dL (3.5-5.0); ALKALINE PHOSPHATASE 67 U/L (32-122); BUN 8 mg/dL (8-22); CALCIUM 9.3 mg/dL (8.8-10.2); CHLORIDE 98 mmol/L (98-107); CK PROFILE 61 U/L (24-204); COSMO 276; CREATININE 0.5 mg/dL (0.7-1.2); ESTIMATED GFR > 60; GLUCOSE 134 mg/dL (70-104); GOT 132 U/L (10-34); GPT 202 U/L (10-44); POTASSIUM 4.3 mmol/L (3.5-5.1); SODIUM 138 mmol/L (136-145); TCO2 21 mmol/L (25-35); TOTAL PROTEIN 7.8 g/dL (6.3-8.3)
[2020-02-04] MEDS ORDERED: ZOFRAN IV ONE (17:40)
[2020-02-04] MEDS ORDERED: ATIVAN IV ONE (17:40)
[2020-02-04] MEDS ORDERED: ROCEPHIN 1 GM in NS 50 ML IV ONE (18:45)
[2020-02-04] MEDS ORDERED: NS 1,000 ML IV ONE (18:45)
[2020-02-04] MEDS: LIBRIUM PO SCH (21:22)
[2020-02-04] MEDS: ZOFRAN IV PRN (21:55)
[2020-02-05] MEDS: ZOFRAN IV PRN ×4 (02:08→21:39)
[2020-02-05] MEDS: LIBRIUM PO SCH ×5 (03:13→21:35)
--- NOTE | 2020-02-05 04:48 | EKG Report ---
Test Performed on : 02/04/2020 7:52:00 PM Test Reason : tachycardia Blood Pressure : / mmHG Vent. Rate : 110 BPM Atrial Rate : 110 BPM P-R Int : 132 ms QRS Dur : 078 ms QT Int : 334 ms P-R-T Axes : 050 047 023 degrees QTc Int : 452 ms Sinus tachycardia. Otherwise normal ECG When compared with ECG of 25-NOV-2019 11:15, (Unconfirmed) No significant change was found Unconfirmed Result
[2020-02-05] MEDS ORDERED: BENTYL PO PRN (09:06)
[2020-02-05] MEDS ORDERED: SALINE LOCK IV FLUID XX ONE (09:06)
[2020-02-05] MEDS ORDERED: ROBAXIN PO PRN (09:06)
[2020-02-05] MEDS ORDERED: M.V.I.-12 10 ML, FOLIC ACID 1 MG, MAGNESIUM SULFATE 1 GM, THIAMINE 100 MG in NS 1,000 ML IV ONE (10:00)
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
[2020-02-06] MEDS: LIBRIUM PO SCH ×4 (03:04→21:16)
[2020-02-06] MEDS: ZOFRAN IV PRN ×4 (03:08→21:16)
[2020-02-06] MEDS: ATARAX PO PRN ×2 (09:24→17:12)
[2020-02-06 09:50] LABS: HEMATOCRIT 42.4 % (42.0-52.0); HEMOGLOBIN 13.4 g/dL (14.0-18.0); MCH 29.7 PG (27-31); MCHC 31.6 g/dL (33-37); MPV 10.9 FL (7.4-10.4); RBC 4.51 XMIL (4.7-6.1); RDW 15.9 % (11.5-14.5); WBC 8.32 X1000 (4.8-10.8)
[2020-02-06 10:24] LABS: AGAP 11; ALBUMIN 3.4 g/dL (3.5-5.0); ALKALINE PHOSPHATASE 56 U/L (32-122); BUN 10 mg/dL (8-22); CALCIUM 9.1 mg/dL (8.8-10.2); CHLORIDE 98 mmol/L (98-107); COSMO 277; CREATININE 0.5 mg/dL (0.7-1.2); ESTIMATED GFR > 60; GLUCOSE 168 mg/dL (70-104); GOT 72 U/L (10-34); GPT 134 U/L (10-44); MAGNESIUM 1.8 mg/dL (1.5-2.7); POTASSIUM 4.2 mmol/L (3.5-5.1); SODIUM 137 mmol/L (136-145); TCO2 28 mmol/L (25-35); TOTAL PROTEIN 6.5 g/dL (6.3-8.3)
--- NOTE | 2020-02-06 12:21 | PROGRESS NOTE ---
DATE: 02/06/2020 SUBJECTIVE: Patient states he is feeling a lot better. Denies any fevers or chills. Denies tremors. OBJECTIVE: Vital Signs: He is afebrile. Pulse in the 60s. Blood pressure is stable. General: Patient is awake, pleasant, in no distress. HEENT: Normocephalic. Neck: Supple. Cardiovascular: Regular rate. Chest: Clear. Abdomen: Soft. Extremities: Moves all extremities. ASSESSMENT: 1. Nausea and vomiting. 2. Abdominal pain. 3. Myalgias. 4. Paresthesias. 5. Paroxysmal sweating. 6. Alcohol abuse withdrawal and stabilization. 7. Supraventricular tachycardia, improved. PLAN: We are going to continue the patient in the hospital. Mr. Polo was confused earlier. I think he is going to stay on high dose Librium and not taper down. Discussed with him that that is not an option as a taper is absolutely necessary. Otherwise, he would eventually go into withdrawal from Librium. We will continue to follow. We continue to attempt to educate. cc: Maynor Jasso MD
[2020-02-06] MEDS ORDERED: TYLENOL PO ONE (18:15)
[2020-02-07] MEDS: LIBRIUM PO SCH ×3 (03:10→20:29)
[2020-02-07] MEDS: ZOFRAN IV PRN (08:39)
--- NOTE | 2020-02-07 14:03 | PROGRESS NOTE ---
DATE: 02/07/2020 SUBJECTIVE: Patient notes overall feeling a lot better. Muscle aches have resolved. Sweating has resolved. He is eating better. OBJECTIVE: Vital Signs: Reviewed. Temperature 97. Pulse 66. Respiratory rate 18. Blood pressure 132/67 to 97/52. General: Patient is awake, pleasant, in no distress. HEENT: Normocephalic. Neck: Supple. Cardiovascular: Regular rate. Chest: Clear. Abdomen: Soft. Extremities: Moves all extremities. ASSESSMENT: 1. Supraventricular tachycardia, resolved. 2. Hypertension. 3. Myalgias. 4. Acute alcoholic hepatitis. 5. Paresthesias, resolved. 6. Chronic alcohol abuse. 7. Coronary artery disease. 8. Schizophrenia. 9. Borderline diabetes. PLAN: We are going to continue the patient in the hospital. Continue symptomatic care. Continue to wean Librium. Hopefully, he can discharge home with a Librium taper tomorrow. cc: Maynor Jasso MD
[2020-02-07] MEDS: ATARAX PO PRN (20:29)
[2020-02-08] MEDS: LIBRIUM PO SCH (03:39)
[2020-02-08] MEDS: ATARAX PO PRN (03:39)
[2020-02-08 11:24] VITALS: BP 112/64
--- NOTE | 2020-02-08 14:47 | DISCHARGE SUMMARY ---
ADMISSION DATE: 02/04/2020 DISCHARGE DATE: 02/08/2020 PRIMARY CARE PHYSICIAN: Dr. Antolin Guerrero. ADMISSION DIAGNOSES: 1. Supraventricular tachycardia. 2. Hypertension. 3. Tremors. 4. Myalgias. 5. Paresthesias. 6. Alcohol abuse, withdrawal, and stabilization. 7. Known hypertension. 8. Known coronary artery disease. 9. Schizophrenia. 10. Borderline diabetes. DISCHARGE DIAGNOSES: 1. Supraventricular tachycardia, resolved. 2. Hypertension. 3. Tremors. 4. Myalgias. 5. Paresthesias, resolved. 6. Alcohol abuse, withdrawal, and stabilization. 7. Known hypertension. 8. Known coronary artery disease. 9. Schizophrenia. 10. Borderline diabetes. SUMMARY OF FINDINGS: This is a 64-year-old male who began drinking again around 18-24 tall boys a day. Had not drank anything since earlier the day of arrival and began having tremors, myalgias, and shaky. Heart rate was elevated, anxious, nervousness, and notes that he is going into withdrawal. So he was admitted, placed on a high-dose Librium taper. We continued to staff counselor him as on previous admissions for alcohol cessation. He verbalized understanding. His liver enzymes were elevated and they were improved and so it is now felt that he can safely be discharged home. DISCHARGE MEDICATIONS: Including Xanax 2 mg p.o. b.i.d., Librium taper as directed, dicyclomine 20 mg p.o. q.6 hours p.r.n., Lyrica 75 mg p.o. b.i.d., and Zantac 300 mg p.o. at bedtime. DISPOSITION: Discharged to home health with [facility]. FOLLOW UP: He will follow up with his primary care physician in the next 1 to 2 weeks. Again, we discussed ETOH cessation with this patient, as we have done on several of his other admissions. He verbalized understanding. TIME SPENT: Thirty-five minutes. Dictated by MARILYN Kelly for Ariel Negrete MD Addendum: Patient seen and examined by myself. Agree with MARILYN note. It reflects my assessment and plan. Patient is being discharged in stable condition. Will be seen by PCP in a week. cc: MARILYN Kelly MD Moses Awoniyi, MD [facility]
== END 2020-02-08 12:20 | disposition home health service (06) | DRG 897 ==
LOC: P.ED 15:27 → SUATTDRO 20:29 → P.MEDSURG 20:29
PROVIDERS: ATTEND Internal Medicine